=== PATIENT | female | born 1935 | race Two or more races ===

== ENCOUNTER 2023-08-15 12:52 | Inpatient (IN) | payer OTHER, SELFPAY ==
[2023-08-12 14:47] VITALS: BMI 21.2
[2023-08-12 14:51] VITALS: BP 111/46
[2023-08-12 15:22] LABS: % Basophils 0.3 % (0-2); % Eosinophils 0.2 % (0-6); % Immature Granulocytes 0.2 % (0-0.5); % Lymphocytes 89.6 % (20.5-51.1); % Monocytes 0.9 % (1.7-9.3); % Neutrophils 8.8 % (42.2-75.2); Absolute Basophils 0.2 10^3/uL (0-0.2); Absolute Eosinophils 0.1 10^3/uL (0-0.7); Absolute Immature Granulocytes 0.1 10^3/uL (0-0.05); Absolute Lymphocytes 49.1 10^3/uL (1.2-3.4); Absolute Monocytes 0.5 10^3/uL (0.1-0.6); Absolute Neutrophils 4.8 10^3/uL (1.4-6.5); Hematocrit 33.2 % (37.0-47.0); Mean Corp Hgb Conc. 33.1 g/dL (33.0-37.0); Mean Corpuscular Hgb 32.3 pg (27.0-31.0); Mean Corpuscular Volume 97.4 fL (81.0-99.0); Mean Platelet Volume 10.1 fL (7.4-10.4); Nucleated Red Blood Cells % 0 %; Platelet Count 244 10^3/uL (130-400); Red Blood Cell Count 3.41 10^6/uL (4.20-5.40); Red Cell Dist. Width 14.1 % (11.5-14.5)
[2023-08-12 15:30] LABS: White Blood Cell Count 54.9 10^3/uL (4.8-10.8)
[2023-08-12 15:39] LABS: ALT (SGPT) 14 U/L (0-35); AST (SGOT) 20 U/L (14-36); Albumin 3.3 g/dl (3.5-5.0); Alkaline Phosphatase 66 U/L (38-126); Blood Urea Nitrogen 34 mg/dl (7-17); Calcium 8.6 mg/dl (8.4-10.2); Carbon Dioxide 25 mmol/L (22-30); Chloride 101 mmol/L (98-107); Glucose 128 mg/dl (70-99); Lipase 39 U/L (23-300); Potassium 3.8 mmol/L (3.5-5.1); Sodium 136 mmol/L (135-145); Total Bilirubin 0.4 mg/dl (0.2-1.3); eGFR 30.83
--- NOTE | 2023-08-12 17:53 | ED.GENMED ---
History of Present Illness
General
Chief Complaint: Abdominal Pain
Source: patient and family
Exam Limitations: none
Time Seen by Provider: 08/12/23 17:42
Nursing documentation reviewed up to this point in time: agreed with
Travel History
Have you had any contact with someone who has COVID-19?: No
Do you have any symptoms of coronavirus? Fever > 100 degrees, chills, cough, shortness of breath, sore throat, loss of taste or smell, muscle aches, or headache?: No
History of Present Illness
History of Present Illness:
88-year-old female presents to the emergency department with left lower quadrant abdominal pain ongoing for 2 weeks to 1 month. No nausea vomiting or diarrhea noted. Patient states she has not been able to eat due to the pain. Last bowel movement
08/11/2023.
Past History
Past History
ED Past Medical History: GERD, HTN, Hypercholesterolemia, NIDDM and Other (Chronic lymphocytic leukemia DVT. )
Social History
Tobacco: Non-smoker
Alcohol: None
Drug: None
Living: [facility]
Employment: Retired
Review of Systems
Review of Systems
Allergies reviewed?: Yes
All Other Systems: Not applicable
Constitutional: Reports no symptoms
EENT: Reports no symptoms
Respiratory: Reports no symptoms
Cardiac: Reports no symptoms
ABD/GI: Reports abdominal pain
: Reports no symptoms
Musculoskeletal: Reports no symptoms
Skin: Reports no symptoms
Neurological: Reports no symptoms
Endocrine: Reports no symptoms
Hematologic/Lymphatic: Reports no symptoms
Psychiatric: Reports no symptoms
Phy Exam
Physical Exam
Physical Exam:
Physical Exam
General: Afebrile
Neck: supple. no meningeal signs. normal posterior pharynx
Heart: s1/s2 regular rate and rhythm, no murmur. equal radial
pulses.
HEENT: Pupils equal round reactive to light, EOMI hard of hearing
Lungs: no acute respiratory distress. clear bilaterally
Abdomen: normal bowel sounds. Left lower quadrant abdominal tenderness
Neuro: alert and oriented. no focal neurological deficits cranial nerves II through XII intact
Skin: no rash
Psychiatric: well kept. interactive and cooperative
Extremities: no edema. no calf tenderness. negative homans. good distal pulses
Course
Orders/Labs/Results
Orders:
Orders
08/12/23 15:08
Complete Blood Count/With Diff Urgent
Comprehensive Metabolic Panel Urgent
Lipase Urgent
08/12/23 17:50
Straight cath- Treatment ONCE
0.9% Sodium Chloride 500 ml [Nss] 500 ml IV BOLUS
08/12/23 17:54
CT Abd/pel Without Iv Or Oral Urgent
Comment:
Reason For Exam: left flank pain, LLQ tenderness
08/12/23 18:00
Lactic Acid Q4H
Comment: CANCEL 2nd LACTIC ACID IF 1st LACTIC ACID IS LESS THAN 2
Blood Culture Q30M
JOEL Source: Blood/Venous
Specimen Description:
08/12/23 18:30
Blood Culture Q30M
JOEL Source: Blood/Venous
Specimen Description:
08/12/23 19:11
Urinalysis Reflex To Culture Urgent
Date Specimen was Collected: 08/12/23
Time Specimen was Collected: 14:59
Urine Microscopic Reflex Cult Urgent
Urine Culture Urgent
JOEL Source: U
Specimen Description:
Date Specimen was Collected: 08/12/23
Time Specimen was Collected: 14:59
08/12/23 19:29
Ropinirole [Requip] 4 mg PO NOW STA
08/12/23 19:38
Cefepime HCl [Maxipime] 2,000 mg IV NOW STA
08/12/23 22:00
Lactic Acid Q4H
Comment: CANCEL 2nd LACTIC ACID IF 1st LACTIC ACID IS LESS THAN 2
Abnormal Lab Results
08/12/23 08/12/23
15:08 19:11
WBC 54.9 H* 10^3/uL
(4.8-10.8)
RBC 3.41 L 10^6/uL
(4.20-5.40)
Hgb 11.0 L g/dL
(12.0-16.0)
Hct 33.2 L %
(37.0-47.0)
MCH 32.3 H pg
(27.0-31.0)
Abs Immat Gran (auto) 0.1 H 10^3/uL
(0-0.05)
Absolute Lymphs (auto) 49.1 H 10^3/uL
(1.2-3.4)
Neutrophils % 8.8 L %
(42.2-75.2)
Lymphocytes % 89.6 H %
(20.5-51.1)
Monocytes % 0.9 L %
(1.7-9.3)
BUN 34 H mg/dl
(7-17)
Creatinine 1.6 H mg/dL
(0.6-1.0)
Glucose 128 H mg/dl
(70-99)
Total Protein 6.0 L g/dl
(6.3-8.2)
Albumin 3.3 L g/dl
(3.5-5.0)
Ur Occult Blood Reflex 1+ A
(Negative)
Urine Nitrite (Reflex) Positive A
(Negative)
Leukocyte Esterase Rfl 2+ A
(Negative)
Urine RBC 3-6 A /HPF
(0-2)
Urine WBC (Reflex) >100 A /HPF
(0-5)
Urine Bacteria (Reflex) Many A
(Negative)
08/12/23 15:08
08/12/23 15:08
Vital Signs
Initial and Last Documented VS:
Initial Vital Signs
Temp Pulse Resp BP Pulse Ox
98.0 F 63 18 111/46 99
08/12/23 14:51 08/12/23 14:51 08/12/23 14:51 08/12/23 14:51 08/12/23 14:51
Last Documented Vital Signs
Temp Pulse Resp BP Pulse Ox
98.0 F 63 18 111/46 99
08/12/23 14:51 08/12/23 14:51 08/12/23 14:51 08/12/23 14:51 08/12/23 14:51
MDM/Problems Addressed
Differential Diagnosis Includes:
Sepsis, kidney stone, diverticulitis
MDM/Problems Addressed:
88-year-old female with acute renal failure, UTI, CLL. Admit to hospitalist.
Chronic conditions affecting care: Cancer (CLL) and Other (Iron deficiency anemia)
*Radiology
Radiology exam reviewed: radiology read reviewed (CT noncontrast abdomen pelvis no acute findings)
*Pulse Oximetry
Patient hypoxic: no
*EKG
Interpreted by ED Provider?: NA
*Vending Machine Operator Interpretation
Rate: Vending Machine Operator- N/A
*Critical Care Note
Total Time (30-74mins, 75-104mins- exclusive of procedures): Not Applicable
Data Reviewed
Review of Other/Old Records Reveals: Labs (Prior white blood count 27.1 on outpatient labs from 01/21/2023)
Source: records
Patient Management
Social determinants of health affecting care: Living situation
Discussion with other providers: Hospitalist
Escalation/DeEscalation of care consider admission/obs:
Admit indicated
ED Attending Note
-
Portions of this chart may have been created with voice recognition software.� Occasional wrong word or��sound alike� substitutions may have occurred due to the inherent limitations of voice recognition software.
Discharge Plan
Departure
Patient Disposition: Admit
Date of Disposition: 08/12/23
Time of Disposition: 19:40
Admit to: Med/Surg
Presentation/result/management discussed w/ accepting MD/DO: Hospitalist
Patient with high blood pressure during this ER visit?: No
Condition: Good
Discharge Problem:
Acute UTI, Acute renal failure, Chronic lymphocytic leukemia
Referrals:
Lico Andrews DO [Family Provider] -
Interventions
Interventions:
*Risk Screen - Suicide Last Done: 08/12/23 14:57
*General Assessment Last Done: 08/12/23 14:57
*Neglect/Abuse Screening Last Done: 08/12/23 14:57
ED- Fall Risk Assessment Last Done: 08/12/23 16:59
Discharge Date and Time
Print Language: MALAYSIAN
[2023-08-12] MEDS: NSS 500 IV (18:41)
[2023-08-12 19:21] LABS: Urine Albumin Trace (Neg - Trace); Urine Bilirubin Negative (Negative); Urine Character Clear (Clear); Urine Color Yellow; Urine Glucose Negative (Negative); Urine Ketone Negative (Negative); Urine Leukocyte 2+ (Negative); Urine Nitrite Positive (Negative); Urine Occult Blood 1+ (Negative); Urine Urobilinogen Negative (Neg - 1+)
[2023-08-12 19:27] LABS: Urine Squamous Cell 0-2 /LPF (Few)
[2023-08-12 19:28] LABS: Urine Bacteria Many (Negative); Urine White Cell >100 /HPF (0-5)
[2023-08-12] MEDS: REQUIP 4 MG PO (19:45)
[2023-08-12] MEDS: MAXIPIME 2000 MG IV (19:52)
--- NOTE | 2023-08-12 20:13 | HPS.HSE ---
Family Physician
-
Family Physician: Lico Andrews DO
Chief Complaint
-
abdominal pain
History of Present Illness
88-year-old female past medical history of CLL not on treatment, GERD, atrial fibrillation unspecified type hypertension, hypercholesteremia, diabetes, hypothyroidism, restless legs, prior DVT, hearing loss, lower extreme edema, presenting with left
lower quadrant abdominal pain ongoing for the past 2 weeks to 1 month. Patient does have nausea with this pain and sometimes vomiting after eating. She also complains of some difficulty swallowing not specific to solids or liquids. She had a
speech and swallow evaluation which was normal. No choking or coughing episodes after swallowing. She was treated with medication to treat GERD which did not result in improvement of the pain. Patient has had normal bowel movements no blood in
the stool or black stool. She has lost 6 to 10 pounds in the past month due to eating less. Patient's family has made appointment with GI physician however no appointment for 2 months.
Patient is chronically incontinent and is not having increased urinary frequency urgency or burning. No fevers or chills.
Patient does not smoke or drink alcohol.
Medical History
Past Medical History
Past Medical History: Reports Other (CLL not on treatment, GERD, atrial fibrillation unspecified type hypertension, hypercholesteremia, diabetes, hypothyroidism, restless legs, prior DVT, hearing loss, lower extreme edema)
Past Surgical History: Reports None
Social History
Tobacco: Non-smoker
Alcohol: None
Drug: None
Family History
Family History: Not pertinent
Allergies / Home Medications
Allergies reflects when Allergies were last updated in [employer].
Home Medications with original date entered in [employer]
Allergy/Medication List:
Allergies
Allergy/AdvReac Type Severity Reaction Status Date / Time
No Known Allergies Allergy Unverified 08/12/23 14:50
Home Medications
acetaminophen 325 mg tablet 650 mg PO Q4H PRN mild pain/fever>100.4 08/12/23
alendronate 70 mg tablet 70 mg PO WE 08/12/23
apixaban 2.5 mg tablet (Eliquis) 2.5 mg PO BID@0830,182908/12/23
atorvastatin 40 mg tablet 40 mg PO QPM 08/12/23
bisacodyl 10 mg rectal suppository (Dulcolax (bisacodyl)) 10 mg NV DAILY PRN if mom is ineffective 08/12/23
calcium carbonate 500 mg PO Q8H PRN indigestion 08/12/23
citalopram 10 mg tablet 10 mg PO DAILY 08/12/23
diltiazem HCl 240 mg capsule,24 hr,extended release 240 mg PO DAILY 08/12/23
fentanyl 25 mcg/hr transdermal patch 1 patch transdermal Q72H 08/12/23
ferrous sulfate 325 mg (65 mg iron) tablet 325 mg PO DAILY 08/12/23
furosemide 20 mg tablet 40 mg PO DAILY 08/12/23
levothyroxine 50 mcg tablet 50 mcg PO DAILY@0630 08/12/23
magnesium hydroxide 400 mg/5 mL oral suspension (Milk of Magnesia) 30 ml PO HS PRN constipation 08/12/23
metformin 500 mg tablet 500 mg PO BID@0830,182908/12/23
metoprolol succinate 25 mg tablet,extended release 24 hr 75 mg PO DAILY 08/12/23
naloxone 4 mg/actuation nasal spray (Narcan) 4 mg intranasal PRN PRN opioid overdose 08/12/23
oxycodone 10 mg tablet 10 mg PO BID@0830,182908/12/23
pantoprazole 40 mg tablet,delayed release 40 mg PO DAILY 08/12/23
ropinirole 4 mg tablet 4 mg PO QPM 08/12/23
sennosides 8.6 mg-docusate sodium 50 mg tablet (Senna-S) 2 tab-cap PO DAILY 08/12/23
Review of Systems
-
History Source: Patient
A 12 point ROS was completed and negative except as noted: Yes
Constitutional: Reports No Symptoms
EENT: Reports No Symptoms
Respiratory: Reports No Symptoms
Cardiac: Reports No Symptoms
Abdomen/GI: Reports See HPI
: Reports No Symptoms
Musculoskeletal: Reports No Symptoms
Skin: Reports No Symptoms
Neurological: Reports No Symptoms
Endocrine: Reports No Symptoms
Hematologic/Lymphatic: Reports No Symptoms
Psych: Reports No Symptoms
Physical Exam
Vital Signs
Vital Signs
Temp Pulse Resp BP Pulse Ox
98.0 F 63 18 111/46 99
08/12/23 14:51 08/12/23 14:51 08/12/23 14:51 08/12/23 14:51 08/12/23 14:51
Physical Exam
General: Well Developed, Well Nourished and No Apparent Distress
HEENT: NormoCephalic, Moist mucous membranes and Atraumatic
Respiratory: Clear
Cardiac: S1/S2 and Regular Rhythm; No Murmur or Rub
GI: Soft, Non Distended, Normal Bowel Sounds and Tender (LLQ, epigastric region ); No Organomegaly
Rectal: Deferred by Provider
Musculoskeletal: No Clubbing, No Cyanosis and No Edema
Skin: No Rash
Neuro: Nonfocal/grossly intact
Laboratory Results
-
08/12/23 15:08
08/12/23 15:08
Laboratory Results
Total Bilirubin 0.4 mg/dl (0.2-1.3) 08/12/23 15:08
AST 20 U/L (14-36) 08/12/23 15:08
ALT 14 U/L (0-35) 08/12/23 15:08
Alkaline Phosphatase 66 U/L (38-126) 08/12/23 15:08
Lipase 39 U/L (23-300) 08/12/23 15:08
Data Reviewed
-
Lab Data: Labs Reviewed by me
Old Records: Reviewed
Impression/Plan
-
IMPRESSION:
PLAN:
# Subacute abdominal pain unclear etiology
# Dysphagia
-Patient tender to palpation in the left lower quadrant, epigastric region
-Lipase unremarkable
-CT abdomen pelvis shows no significant acute abnormality. There is diverticulosis without diverticulitis. 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
-Unclear etiology could be related to esophagitis, other causes include abdominal lymphadenopathy from CLL, underlying malignancy etc
-Patient had outpatient swallow evaluation which was normal
-Continue PPI
-GI consulted
-Hold Eliquis until GI evaluation
-Continue oxycodone, fentanyl patch
# Urinary tract infection
-Urinalysis very positive for infection
-Urine culture
-Blood cultures
-IV fluids
-Ceftriaxone
# Acute kidney injury prerenal
-Creatinine 1.6
-IV fluids
-Hold Lasix
# History of smoldering CLL
-Not on treatment and being observed
-White cell count normally 27, currently 54 due to UTI
Opiate induced constipation
-Continue bowel regimen
Chronic urinary incontinence
Hypertension
Chronic lower extremity edema
-Hold Lasix
Atrial fibrillation unspecified type
-Continue diltiazem, metoprolol
-Hold Eliquis
Hypercholesterolemia
-Continue statin
Type 2 diabetes
-Hold metformin
History of prior DVT
Chronic anemia
-Hemoglobin stable
-Continue iron supplement
Osteoporosis
-Continue alendronate
Hearing loss
Restless leg syndrome
-Continue ropinirole
Anxiety/depression
-Continue citalopram
Hypothyroidism
-Continue levothyroxine
DNR/DNI
DVT prophylaxis�heparin
Regular diet
[2023-08-12 20:26] LABS: Lactic Acid 2.3 mmol/L (0.7-2.0)
[2023-08-12 21:20] VITALS: BP 136/55; BMI 19.6
[2023-08-12] MEDS: NSS 1000 IV (22:04)
[2023-08-12] MEDS: DURAGESIC 25 MCG/HR PATCH 1 PATCH TRANSDERM (22:10)
[2023-08-12 22:11] LABS: Lactic Acid 1.7 mmol/L (0.7-2.0)
[2023-08-12 23:00] VITALS: BP 114/50
[2023-08-13] MEDS: STERILE WATER FOR INJECTION 10 ML IV (02:57)
[2023-08-13] MEDS: ROCEPHIN 1000 MG IV (02:57)
[2023-08-13] MEDS: SYNTHROID 50 MCG PO (06:22)
[2023-08-13 06:56] LABS: % Basophils 0.2 % (0-2); % Eosinophils 0.3 % (0-6); % Immature Granulocytes 0.2 % (0-0.5); % Lymphocytes 88.3 % (20.5-51.1); % Monocytes 1.2 % (1.7-9.3); % Neutrophils 9.8 % (42.2-75.2); Absolute Basophils 0.1 10^3/uL (0-0.2); Absolute Eosinophils 0.1 10^3/uL (0-0.7); Absolute Immature Granulocytes 0.1 10^3/uL (0-0.05); Absolute Monocytes 0.5 10^3/uL (0.1-0.6); Absolute Neutrophils 3.9 10^3/uL (1.4-6.5); Hematocrit 30.9 % (37.0-47.0); Mean Corp Hgb Conc. 32.4 g/dL (33.0-37.0); Mean Corpuscular Hgb 32.3 pg (27.0-31.0); Mean Corpuscular Volume 99.7 fL (81.0-99.0); Mean Platelet Volume 10.3 fL (7.4-10.4); Nucleated Red Blood Cells % 0.1 %; Platelet Count 171 10^3/uL (130-400); Red Cell Dist. Width 13.9 % (11.5-14.5); White Blood Cell Count 39.6 10^3/uL (4.8-10.8)
[2023-08-13 07:00] VITALS: BP 144/64
[2023-08-13 07:17] LABS: ALT (SGPT) 11 U/L (0-35); AST (SGOT) 20 U/L (14-36); Albumin 2.8 g/dl (3.5-5.0); Alkaline Phosphatase 58 U/L (38-126); Blood Urea Nitrogen 32 mg/dl (7-17); Calcium 8.1 mg/dl (8.4-10.2); Carbon Dioxide 27 mmol/L (22-30); Chloride 104 mmol/L (98-107); Estimated Creatinine Clearance 23 ml/min; Glucose 95 mg/dl (70-99); Potassium 3.6 mmol/L (3.5-5.1); Sodium 139 mmol/L (135-145); Total Bilirubin 0.4 mg/dl (0.2-1.3); Total Protein 5.3 g/dl (6.3-8.2); eGFR 36.19
--- NOTE | 2023-08-13 07:34 | PTCARENOTE ---
Patient arrived on unit @2114 via stretcher from ED, pullover with assist x3. Patient AAOX3, HUGHES, uses tablet to communicate. Skin assessment completed, oriented to unit, call dale with reach.
[2023-08-13] MEDS: HEPARIN 5000 UNITS SC ×2 (08:09→20:58)
[2023-08-13] MEDS: PROTONIX 40 MG PO (08:11)
[2023-08-13] MEDS: CELEXA 10 MG PO (08:11)
[2023-08-13] MEDS: CARDIZEM CD 240 MG PO (08:11)
[2023-08-13] MEDS: FEOSOL 325 MG PO (08:11)
[2023-08-13] MEDS: TOPROL XL 75 MG PO (08:11)
[2023-08-13] MEDS: SENOKOT-S 2 TABLET PO (08:12)
[2023-08-13] MEDS: ROXICODONE 10 MG PO ×2 (08:12→17:37)
--- NOTE | 2023-08-13 10:42 | W.PN.HOSP.TC ---
Today's Communication/Plan
-
TSH
Hemoglobin A1c
Low resistance insulin scale
Bladder scan
GI consult
Continue IV fluids
Assessment / Plan
Assessment / Plan
Gen-AAOx3, NAD
HEENT-NC, AT, anicteric, clear oral mm
Neck-supple
CV-reg, no M, +S1/S2
Lungs-clear B/L
Abd-soft, distended, mildly tender
Ext-no edema
Musculoskeletal-no cyanosis, clubbing
Skin-warm and dry
Neuro-grossly non-focal
Psych-calm, cooperative
Abdominal pain -for at least the past month. Associated with worsening while eating, 15 pound weight loss over the past 5 months. Differential diagnosis includes chronic mesenteric ischemia. CT abdomen/pelvis did not reveal any acute pathology
but findings are limited without oral/IV contrast.
Will discuss with GI today.
Dysphagia -unclear etiology. Await GI input.
Acute kidney injury -likely due to decreased oral intake with volume depletion. Renal function improving with IV fluids. Furosemide on hold. Check bladder scan.
Asymptomatic pyuria -on antibiotics empirically for possible UTI. Culture pending.
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 Most of her leukocytosis is likely related to this.
Chronic pain syndrome/chronic opiate dependence
Opiate induced constipation -had a small BM this morning. Continue bowel regimen.
Essential hypertension -stable.
Chronic urinary incontinence
Atrial fibrillation -unknown type. Eliquis on hold for now.
Hyperlipidemia -atorvastatin.
Osteoporosis
DM2 without hyperglycemia - metformin on hold. Glucose 95 this morning. Check hemoglobin A1c.
RLS
Hypothyroidism -levothyroxine. Check TSH.
Anxiety/depression
Chronic hearing loss
DNR
Anticipated Discharge: 24 - 48 hours
Subjective/Interval History
-
Date of Service: August 13, 2023
Patient seen and examined. Complaining of abdominal discomfort with eating.
Objective Data
-
Labs:
Laboratory Results
08/13/23
06:42
WBC 39.6 H
Hgb 10.0 L
Hct 30.9 L
Plt Count 171 D
Sodium 139
Potassium 3.6
Chloride 104
Carbon Dioxide 27
BUN 32 H
Creatinine 1.4 H
Glucose 95
Calcium 8.1 L
Total Bilirubin 0.4
AST 20
ALT 11
Alkaline Phosphatase 58
Vital Signs:
Vital Signs
Temp Pulse Resp BP Pulse Ox
97.6 F 75 16 144/64 98
08/13/23 07:00 08/13/23 08:11 08/13/23 07:00 08/13/23 08:11 08/13/23 07:00
I&O
08/12/23 08/13/23 08/14/23
06:59 06:59 06:59
Intake Total 480 / 480
Output Total 450 / 450
Balance 30 / 30
Review of Systems
-
History Source: Patient
All other systems: Reviewed and negative
[2023-08-13] MEDS: 0.45%NACL 1000 IV (11:22)
[2023-08-13] MEDS: NSS IV (11:25)
[2023-08-13] MEDS: NOVOLOG FLEXPEN-LOW RESISTANCE SC ×2 (12:09→17:07)
[2023-08-13 12:13] LABS: TSH 2.65 uIU/ml (0.47-4.68)
--- NOTE | 2023-08-13 12:20 | CON.GI ---
Addendum entered and electronically signed by Lesa Morales DO 08/13/23 15:07:
I saw and examined the patient.
The PICTURE FRAME MAKER or PA's note was reviewed and I agree with the note.
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
presents with left upper and left lower quadrant abdominal pain for the last few weeks with associated weight loss. She adamantly denies any dysphagia, odynophagia or globus sensation. She does admit to constipation, moving her bowels every 2 to 3
days, which is a change for her and she attributes to her anorexia over the last few weeks. She also admits to regurgitation and bilious emesis soon after eating. She has not had an appetite, endorses dyspepsia. She denies any melena or
hematochezia. Denies any diarrhea, states when she does have a bowel movement it is formed and her abdominal discomfort is improved after moving her bowels however this does not improve her appetite or desire to eat. Reportedly had a colonoscopy
about 10 years ago. Family history of father with colon cancer.
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 Simple hepatic cysts. Gallbladder present, no evidence of cholelithiasis, GB wall
thickening or cholecystic fluid. However, no PO or IV contrast was used, patient with mild MIKKI, Cr. 1.6 --> 1.4 (previously 0.9 in February 2023).She is on chronic opioids.
Unclear etiology of pain, large differential given her known history of CLL as well as findings of CBD dilatation with intact gallbladder, however, pain is concentrated on left-side. Given post-prandial nature, this could certainly represent chronic
mesenteric ischemia. Another possibility is gastroparesis, she is on chronic opioids, however, given the acuity, less likely.
Recommendations:
-eliquis on hold, needs wash out
-PPI
-MRI/MRCP--if negative, will consider inpatient EGD/Colonoscopy, patient is agreeable
-continue daily sennaginettet, MoM enema prn, add daily miralax and uptitrate
Original Note:
Consultation
-
Date/Time Consultation Requested: 08/12/23 6546
Date/Time Consultation Performed: 08/13/23 1145
Requesting Provider: Dr. Landa
Performing Provider: Dr. Lopez/ROBIN Carvalho
Reason for Consultation: abdominal pain, weight loss, vomiting
Medical History
Chief Complaint / HPI
Chief Complaint: abd pain, weight loss, vomiting
History of Present Illness:
88-year-old female with past medical history of CLL greater than 10 years currently not on treatment followed by Dr. Fernandez in the past with baseline white count around 20,000, GERD, atrial fibrillation, hypertension, hyperlipidemia, diabetes,
hypothyroidism, RLS, prior DVT, hearing loss with need of iPad for communication, lower extremity edema, osteoporosis, chronic pain syndrome chronic urinary incontinence and anemia who presents to the emergency room from [facility] with left
upper quadrant abdominal discomfort, weight loss of 10 pounds over the past month, vomiting after eating and dyspepsia. We are asked to evaluate for the same. I spoke to both the patient (with the aid of her iPad) and with her son via telephone
about her past medical history as her son states that she could be forgetful at times. The patient and son both say that for the past month that she has had issues with left upper quadrant discomfort for the past 3 to 4 weeks. This usually occurs
after eating. The patient states that she can take a couple bites and always ask for a bucket with eating as she promptly regurgitates or vomits shortly thereafter. The patient states that it is usually bilious vomit. She states that the left
upper quadrant discomfort can be both sharp and dull. It is intermittent. Pain medications make it better. Food makes it worse. She has a documented 10 pound weight loss. She does state that she has darker stools and that people told her that
they are hard and pellet-like. From medical records it appears that she is on iron however she was unaware of that. Other medications that are contributing to constipation include diltiazem, fentanyl patch and oxycodone. The patient denies any
fevers, chills, hematochezia, true dysphagia or odynophagia. Her son states that she had a speech and swallow evaluation while at [facility] and passed this. There were no signs of aspiration from what he recalls. He states that she had a
colonoscopy which he thinks was approximately 10 years ago as his father had a history of colon cancer and him and his mother would go for screenings. The patient herself does not recall this. He does not believe she is ever had an upper endoscopy
before. The patient does not ever having that either.
Past Medical History
Past Medical History: Arrhythmias (Atrial fibrillation), Cancer (CLL greater than 10 years), GERD, HTN, Hypercholesterolemia, Hypothyroidism, NIDDM and Other (RLS, prior DVT, hearing loss, bilateral lower extremity edema, osteoporosis, chronic pain
syndrome, chronic urinary incontinence)
Past Surgical History: Orthopedic (Right hip replacement, right knee patellar repair) and Other (Cataracts)
Social History
Tobacco: Non-Smoker
Alcohol: None
Drug: None
Personal:
Living: [facility]
Family History
Family History: Other (No family history of gastrointestinal malignancy or IBD)
Allergies / Home Medications
Allergy/AdvReac Type Severity Reaction Status Date / Time
No Known Allergies Allergy Unverified 08/12/23 14:50
�Medication �Instructions �Recorded
acetaminophen 325 mg tablet 650 mg PO Q4H PRN mild 08/12/23
pain/fever>100.4
alendronate 70 mg tablet 70 mg PO WE osteoporosis 08/12/23
apixaban 2.5 mg tablet (Eliquis) 2.5 mg PO BID@0830,1830 Blood Clot 08/12/23
Prevention/Tx
atorvastatin 40 mg tablet 40 mg PO QPM High Cholesterol 08/12/23
bisacodyl 10 mg rectal suppository 10 mg OK DAILY PRN if mom is 08/12/23
(Dulcolax (bisacodyl)) ineffective
calcium carbonate 500 mg PO Q8H PRN indigestion 08/12/23
citalopram 10 mg tablet 10 mg PO DAILY Depression 08/12/23
diltiazem HCl 240 mg capsule,24 240 mg PO DAILY Blood Pressure 08/12/23
hr,extended release
fentanyl 25 mcg/hr transdermal 1 patch transdermal Q72H chronic 08/12/23
patch pain
ferrous sulfate 325 mg (65 mg 325 mg PO DAILY Supplement 08/12/23
iron) tablet
furosemide 20 mg tablet 40 mg PO DAILY Fluid 08/12/23
Retention/Swelling
levothyroxine 50 mcg tablet 50 mcg PO DAILY@0630 Thyroid 08/12/23
magnesium hydroxide 400 mg/5 mL 30 ml PO HS PRN constipation 08/12/23
oral suspension (Milk of TrueLens)
metformin 500 mg tablet 500 mg PO BID@0830,1830 Diabetes 08/12/23
metoprolol succinate 25 mg 75 mg PO DAILY Blood Pressure 08/12/23
tablet,extended release 24 hr
naloxone 4 mg/actuation nasal 4 mg intranasal PRN PRN opioid 08/12/23
spray (Narcan) overdose
oxycodone 10 mg tablet 10 mg PO BID@0830,1830 Pain 08/12/23
pantoprazole 40 mg tablet,delayed 40 mg PO DAILY Gastrointestinal 08/12/23
release Issue
ropinirole 4 mg tablet 4 mg PO QPM restless legs 08/12/23
sennosides 8.6 mg-docusate sodium 2 tab-cap PO DAILY Constipation 08/12/23
50 mg tablet (Senna-S)
Review of Systems
-
All other systems: A 12 pt ROS was Negative except as stated above in HPI
Vital Signs
Temp Pulse Resp BP Pulse Ox
97.6 F 75 16 144/64 98
08/13/23 07:00 08/13/23 08:11 08/13/23 07:00 08/13/23 08:11 08/13/23 07:00
Physical Exam
Exam
General: No Apparent Distress
HEENT: Anicteric
Respiratory: Clear
Cardiac: Regular Rhythm
GI: Soft, Non Distended, Normal Bowel Sounds and Tender (Left upper quadrant tenderness)
Musculoskeletal: Edema (Bilateral lower extremity edema left greater than right)
Skin: Warm and Dry
Neuro: AO x 3
Psych: Calm
Results
WBC 39.6 10^3/uL (4.8-10.8) H 08/13/23 06:42
Hgb 10.0 g/dL (12.0-16.0) L 08/13/23 06:42
Hct 30.9 % (37.0-47.0) L 08/13/23 06:42
MCV 99.7 fL (81.0-99.0) H 08/13/23 06:42
Plt Count 171 10^3/uL (130-400) D 08/13/23 06:42
Absolute Neuts (auto) 3.9 10^3/uL (1.4-6.5) 08/13/23 06:42
Sodium 139 mmol/L (135-145) 08/13/23 06:42
Potassium 3.6 mmol/L (3.5-5.1) 08/13/23 06:42
Chloride 104 mmol/L (98-107) 08/13/23 06:42
Carbon Dioxide 27 mmol/L (22-30) 08/13/23 06:42
BUN 32 mg/dl (7-17) H 08/13/23 06:42
Creatinine 1.4 mg/dL (0.6-1.0) H 08/13/23 06:42
Calcium 8.1 mg/dl (8.4-10.2) L 08/13/23 06:42
Total Bilirubin 0.4 mg/dl (0.2-1.3) 08/13/23 06:42
AST 20 U/L (14-36) 08/13/23 06:42
ALT 11 U/L (0-35) 08/13/23 06:42
Alkaline Phosphatase 58 U/L (38-126) 08/13/23 06:42
Lipase 39 U/L (23-300) 08/12/23 15:08
Diagnostic Image Results:
CT of the abdomen and pelvis without contrast:
1. No significant acute abnormality identified in the abdomen or pelvis, within the limits of unenhanced CT, as described above. Diverticulosis coli without evidence for diverticulitis.
2. 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 Consider outpatient workup with dedicated MRI/MRCP abdomen without and with gadolinium contrast.
Electronically signed by Tom Schaefer , 08/12/2023 7:21 PM
Prior GI Procedures:
EGD: Never had
Colonoscopy: Does not recall when. Per son approximately 10 years ago. Does not recall where or results
Assessment / Plan
-
88-year-old female with past medical history of CLL greater than 10 years currently not on treatment followed by Dr. Fernandez in the past with baseline white count around 20,000, GERD, atrial fibrillation, hypertension, hyperlipidemia, diabetes,
hypothyroidism, RLS, prior DVT, hearing loss with need of iPad for communication, lower extremity edema, osteoporosis, chronic pain syndrome chronic urinary incontinence and anemia who presents to the emergency room from [facility] with left
upper quadrant abdominal discomfort, weight loss of 10 pounds over the past month, vomiting after eating and dyspepsia. WBC 39.6 (down from 54.9�baseline around 20,000), hemoglobin 10.0, MCV 99.7, MCH 32.3, platelets 171, sodium 139, potassium 3.6,
chloride 104, CO2 27, BUN 34, creatinine 1.4, lactic acid 1.7, total bilirubin 0.4, AST 20, ALT 11, alk phos 58, albumin 2.8, TSH 2.65, UA positive, urine culture preliminary gram-negative bacilli. Patient was started on ceftriaxone for UTI.
Impression:
LUQ pain
weight loss
Vomiting
Anemia-> macrocytic
Constipation
GERD-> on Pantoprazole
UTI-> UC prelim GNB
MIKKI-> cannot have IV contrast at this time
CLL-> baseline WBC count 20,000 per son.
Afib on Eliquis, last dose prior to arrival
Chronic pain-> Fentanyl patch, oxycodone
Plan:
-Continue Pantoprazole 40 mg daily
-Check iron studies, B12, Folate
-Patient would be agreeable for EGD, would need Eliquis washout
-Bowel regimen, add Miralax
-Further recommendations to be forthcoming
-
-
Thank you for consultation and allowing me to participate in the patient's care. Please call the oncology rn GI physician during the after hours with any questions or concerns.
--- NOTE | 2023-08-13 14:03 | CM ---
Reviewed chart, met with patient to obtain information for assessment. 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 She stated that she is dependent for all ADLs, personal care, dressing and bathing. She uses a w/c. She denied
any other DME. She relayed that she has been at [facility] for 10 years and selects to return to her LTC when she is medically stable.
Placed a call to Harjeet in admissions at [facility] who confirmed bed hold.
She stated that she will f/u for updates.
Plan: Case management will continue to follow and assist with discharge planning. Back to [facility] when stable.
[2023-08-13 14:25] VITALS: BMI 19.6
[2023-08-13 15:00] VITALS: BP 127/55
[2023-08-13] MEDS: MIRALAX 17 GRAMS PO (15:13)
[2023-08-13 17:02] LABS: Glucose - Point of Care 128 mg/dl (70-99)
[2023-08-13] MEDS: REQUIP 4 MG PO (17:36)
[2023-08-13] MEDS: LIPITOR 40 MG PO (17:37)
[2023-08-13 23:00] VITALS: BP 147/118
[2023-08-14] MEDS: 0.45%NACL 1000 IV ×2 (00:31→13:12)
[2023-08-14] MEDS: STERILE WATER FOR INJECTION 10 ML IV (03:00)
[2023-08-14] MEDS: ROCEPHIN 1000 MG IV (03:00)
[2023-08-14] MEDS: SYNTHROID 50 MCG PO (06:34)
[2023-08-14 07:17] VITALS: BP 144/59
[2023-08-14] MEDS: MIRALAX PO ×2 (07:43→08:01)
[2023-08-14] MEDS: PROTONIX 40 MG PO (07:43)
[2023-08-14] MEDS: ROXICODONE 10 MG PO ×2 (07:43→17:54)
[2023-08-14] MEDS: CARDIZEM CD 240 MG PO (07:43)
[2023-08-14] MEDS: TOPROL XL 75 MG PO (07:43)
[2023-08-14] MEDS: FEOSOL 325 MG PO (07:43)
[2023-08-14] MEDS: SENOKOT-S 2 TABLET PO (07:44)
[2023-08-14] MEDS: HEPARIN 5000 UNITS SC ×2 (07:44→21:51)
[2023-08-14] MEDS: CELEXA 10 MG PO (07:44)
[2023-08-14 07:56] LABS: Glucose - Point of Care 93 mg/dl (70-99)
[2023-08-14] MEDS: NOVOLOG FLEXPEN-LOW RESISTANCE SC (08:01)
[2023-08-14 08:10] LABS: % Basophils 0.3 % (0-2); % Eosinophils 0.3 % (0-6); % Immature Granulocytes 0.2 % (0-0.5); % Neutrophils 8.2 % (42.2-75.2); Absolute Basophils 0.2 10^3/uL (0-0.2); Absolute Eosinophils 0.1 10^3/uL (0-0.7); Absolute Immature Granulocytes 0.1 10^3/uL (0-0.05); Absolute Monocytes 0.4 10^3/uL (0.1-0.6); Absolute Neutrophils 3.6 10^3/uL (1.4-6.5); Hematocrit 29.2 % (37.0-47.0); Hemoglobin 10.1 g/dL (12.0-16.0); Mean Corp Hgb Conc. 34.6 g/dL (33.0-37.0); Mean Corpuscular Hgb 32.6 pg (27.0-31.0); Mean Corpuscular Volume 94.2 fL (81.0-99.0); Mean Platelet Volume 10.2 fL (7.4-10.4); Nucleated Red Blood Cells % 0 %; Platelet Count 190 10^3/uL (130-400); Red Cell Dist. Width 13.9 % (11.5-14.5)
[2023-08-14 08:15] LABS: White Blood Cell Count 43.3 10^3/uL (4.8-10.8)
[2023-08-14 08:44] LABS: Blood Urea Nitrogen 23 mg/dl (7-17); Calcium 7.8 mg/dl (8.4-10.2); Carbon Dioxide 22 mmol/L (22-30); Chloride 103 mmol/L (98-107); Estimated Creatinine Clearance 29 ml/min; Glucose 102 mg/dl (70-99); Potassium 3.4 mmol/L (3.5-5.1); Sodium 135 mmol/L (135-145); eGFR 48.33
[2023-08-14 09:50] LABS: Glycohemoglobin (HgbA1c) 6.7 % (4.0-5.6)
--- NOTE | 2023-08-14 10:12 | W.PN.HOSP.TC ---
Addendum entered and electronically signed by Sanjiv Washburn DO 08/14/23 11:43:
I updated patient's son Adonay on the phone. All questions answered.
Original Note:
Today's Communication/Plan
-
Continue IV fluids
CTA tomorrow
Assessment / Plan
Assessment / Plan
Gen-AAOx3, NAD
HEENT-NC, AT, anicteric, clear oral mm
Neck-supple
CV-reg, no M, +S1/S2
Lungs-clear B/L
Abd-soft, distended, mildly tender
Ext-no edema
Musculoskeletal-no cyanosis, clubbing
Skin-warm and dry
Neuro-grossly non-focal
Psych-calm, cooperative
Abdominal pain -for at least the past month. Associated with worsening while eating, 15 pound weight loss over the past 5 months. Differential diagnosis includes chronic mesenteric ischemia. CT abdomen/pelvis did not reveal any acute pathology
but findings are limited without oral/IV contrast.
Will check CTA abdomen and pelvis tomorrow as anticipate renal function will continue to improve. Discussed with patient.
Dysphagia -patient now denies.
Acute kidney injury -likely due to decreased oral intake with volume depletion. Renal function improving with IV fluids. Furosemide on hold.
Asymptomatic pyuria -on antibiotics empirically for possible UTI. Urine culture shows greater than 100,000 Klebsiella species. Has received 2 doses of IV ceftriaxone so far.
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 Most of her leukocytosis is likely related to this.
Chronic pain syndrome/chronic opiate dependence
Opiate induced constipation -had a small BM this morning. Continue bowel regimen.
Essential hypertension -stable.
Chronic urinary incontinence
Atrial fibrillation -unknown type. Eliquis on hold for now.
Hyperlipidemia -atorvastatin.
Osteoporosis
DM2 without hyperglycemia - metformin on hold. Glucose 102 this morning. Hemoglobin A1c 6.7%.
RLS
Hypothyroidism -levothyroxine. TSH normal.
Anxiety/depression
Chronic hearing loss
DNR
Anticipated Discharge: > 48 hours
Subjective/Interval History
-
Date of Service: August 14, 2023
Patient seen and examined. No new complaints, still with postprandial pain. Denies trouble swallowing.
Objective Data
-
Labs:
Laboratory Results
08/14/23
07:51
WBC 43.3 H*
Hgb 10.1 L
Hct 29.2 L
Plt Count 190
Sodium 135
Potassium 3.4 L
Chloride 103
Carbon Dioxide 22
BUN 23 H
Creatinine 1.1 H
Glucose 102 H
Calcium 7.8 L
Vital Signs:
Vital Signs
Temp Pulse Resp BP Pulse Ox
97.8 F 68 16 144/59 99
08/14/23 07:17 08/14/23 07:17 08/14/23 07:17 08/14/23 07:17 08/14/23 07:17
I&O
08/13/23 08/14/23 08/15/23
06:59 06:59 06:59
Intake Total 480 / 480 480 / 480
Output Total 450 / 450 600 / 600 1000 / 1000
Balance 30 / 30 -120 / -120 -1000 / -1000
Review of Systems
-
History Source: Patient
All other systems: Reviewed and negative
[2023-08-14] MEDS: KCL 40 MEQ PO (10:20)
[2023-08-14 10:36] LABS: Magnesium 1.4 mg/dl (1.6-2.3)
[2023-08-14 12:47] LABS: Glucose - Point of Care 198 mg/dl (70-99)
[2023-08-14] MEDS: NOVOLOG FLEXPEN-LOW RESISTANCE 1 UNITS SC (13:03)
[2023-08-14] MEDS: MAGNESIUM SULFATE 50 IV (14:06)
[2023-08-14 14:20] VITALS: BP 109/41; PULSE 63; O2SAT 98
--- NOTE | 2023-08-14 15:27 | PTCARENOTE ---
pt with new onset SOB, sats on RA 80% HR 120's BP elevated. 2L O2 applied with sats in high 90's. Doctor Zheng made aware via TT. PRN hydralazine administered. Chest X, IV lasix and Procardia ordered. Will continue to monitor.
[2023-08-14 15:50] VITALS: BP 122/47
--- NOTE | 2023-08-14 16:33 | W.PN.GI.CBS2 ---
Today's Communication / Plan
-
- MRI/MRCP
- family aware
Assessment / Plan
-
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 Fernandez in the past with baseline white count around 20,000, GERD, atrial fibrillation on Eliquis, hypertension,
hyperlipidemia, diabetes, hypothyroidism, RLS, prior DVT, hearing loss with need of iPad for communication, lower extremity edema, osteoporosis, chronic pain syndrome chronic urinary incontinence and anemia [facility] left [facility] quadrant abdominal discomfort, weight loss of 10 pounds over the past month (she states 40 pounds over months), vomiting after eating and dyspepsia. WBC 39.6 (down from 54.9�baseline around 20,000), hemoglobin 10.0,
MCV 99.7, MCH 32.3, platelets 171, sodium 139, potassium 3.6, chloride 104, CO2 27, BUN 34, creatinine 1.4, lactic acid 1.7, total bilirubin 0.4, AST 20, ALT 11, alk phos 58, albumin 2.8, TSH 2.65, UA positive, urine culture preliminary
gram-negative bacilli. Patient was started on ceftriaxone for UTI.
Impression:
LUQ pain
weight loss
Vomiting
Anemia-> macrocytic
Constipation
GERD-> on Pantoprazole
UTI-> UC prelim GNB
MIKKI-> cannot have IV contrast at this time
CLL-> baseline WBC count 20,000 per son.
Afib on Eliquis, last dose prior to arrival
Chronic pain-> Fentanyl patch, oxycodone
Plan:
-Continue Pantoprazole 40 mg daily
-Check iron studies, B12, Folate
-Patient would be agreeable for EGD, would need Eliquis washout
-Bowel regimen, add Miralax
-Further recommendations to be forthcoming
08/14/23 -renal function improving
--CT angiography has sensitivity and specificity of 90% the diagnosis of chronic mesenteric ischemia due to atherosclerosis
--Other etiologies gastroparesis in the setting of narcotics versus malignancy vs PUD vs celiac vs other
--
-- Review of her CT scan is concerning for probable biliary cyst with dilation up to 3.4 cm in the common bile duct measuring up to 11 mm. Gallbladder is present.
Patient really needs an MRI/MRCP to classify the cyst. LFTs are normal.
--- Patient's LFTs are normal which is common in biliary cysts --there is an increased risk of malignancy, particularly cholangiocarcinoma but also pancreatic and gallbladder cancers. Cancer is more common in patients who are older with type I and
IV cysts.
-- vince proceed with MRI/MRCP in light of this information.
--- may need CTA to look at the vasculature to see if this could potentially be chronic mesenteric ischemia, but will start with MRI/MRCP since it likely has higher yield and we need to see the biliary tree well
-- discuss with Wu
Subjective
Subjective
Date of Service: August 14, 2023
Patient denies any significant constipation and generally moves her bowels every other day. No significant nausea or vomiting and usually her symptoms occur postprandial after dinner with some nausea and vomiting at that time. Appetite is
decreased. She has left upper quadrant discomfort denies any heartburn or regurgitation
Objective
Data Reviewed
Laboratory Data:
Laboratory Results
08/14/23 07:51
08/14/23 07:51
Laboratory Results
Magnesium 1.4 mg/dl (1.6-2.3) L 08/14/23 07:51
Total Bilirubin 0.4 mg/dl (0.2-1.3) 08/13/23 06:42
AST 20 U/L (14-36) 08/13/23 06:42
ALT 11 U/L (0-35) 08/13/23 06:42
Alkaline Phosphatase 58 U/L (38-126) 08/13/23 06:42
Lipase 39 U/L (23-300) 08/12/23 15:08
Vital Signs and I&O:
Vital Signs
Temp Pulse Resp BP Pulse Ox
97.8 F 68 16 144/59 99
08/14/23 07:17 08/14/23 07:17 08/14/23 07:17 08/14/23 07:17 08/14/23 07:17
I&O
08/13/23 08/14/23 08/15/23
06:59 06:59 06:59
Intake Total 480 / 480 480 / 480
Output Total 450 / 450 600 / 600 1000 / 1000
Balance 30 / 30 -120 / -120 -1000 / -1000
Physical Exam
Physical Exam
HEENT: Anicteric and Other (Hard of hearing)
GI: Soft and Tender (Tender in the left upper quadrant with deep palpation)
Extremities: No Edema
Neuro: Non Focal
[2023-08-14] MEDS: LIPITOR 40 MG PO (17:53)
[2023-08-14] MEDS: REQUIP 4 MG PO (17:55)
[2023-08-14] MEDS: NOVOLOG FLEXPEN-LOW RESISTANCE 2 UNITS SC (17:59)
[2023-08-14 18:00] LABS: Glucose - Point of Care 238 mg/dl (70-99)
[2023-08-14 21:43] LABS: Glucose - Point of Care 156 mg/dl (70-99)
[2023-08-14 23:00] VITALS: BP 146/63
[2023-08-15] MEDS: ROCEPHIN 1000 MG IV (01:57)
[2023-08-15] MEDS: STERILE WATER FOR INJECTION 10 ML IV (01:57)
[2023-08-15] MEDS: 0.45%NACL 1000 IV ×2 (01:58→15:47)
[2023-08-15] MEDS: SYNTHROID 50 MCG PO (06:16)
[2023-08-15 07:32] VITALS: BP 109/63
[2023-08-15] MEDS: PROTONIX 40 MG PO (08:07)
[2023-08-15] MEDS: FEOSOL 325 MG PO (08:07)
[2023-08-15] MEDS: SENOKOT-S 2 TABLET PO (08:07)
[2023-08-15] MEDS: CARDIZEM CD 240 MG PO (08:07)
[2023-08-15] MEDS: ROXICODONE 10 MG PO ×2 (08:07→17:53)
[2023-08-15] MEDS: TOPROL XL 75 MG PO (08:07)
--- NOTE | 2023-08-15 08:07 | W.PN.GI.CBS2 ---
Today's Communication / Plan
-
awaiting MRI/MRCP
Assessment / Plan
-
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 Fernandez in the past with baseline white count around 20,000, GERD, atrial fibrillation on Eliquis, hypertension,
hyperlipidemia, diabetes, hypothyroidism, RLS, prior DVT, hearing loss with need of iPad for communication, lower extremity edema, osteoporosis, chronic pain syndrome chronic urinary incontinence and anemia who presents to the emergency room from
[facility] with left upper quadrant abdominal discomfort, weight loss of 10 pounds over the past month (she states 40 pounds over months), vomiting after eating and dyspepsia. WBC 39.6 (down from 54.9�baseline around 20,000), hemoglobin 10.0,
MCV 99.7, MCH 32.3, platelets 171, sodium 139, potassium 3.6, chloride 104, CO2 27, BUN 34, creatinine 1.4, lactic acid 1.7, total bilirubin 0.4, AST 20, ALT 11, alk phos 58, albumin 2.8, TSH 2.65, UA positive, urine culture preliminary
gram-negative bacilli. Patient was started on ceftriaxone for UTI.
Impression:
LUQ pain
weight loss
Vomiting
Anemia-> macrocytic
Constipation
GERD-> on Pantoprazole
UTI-> UC prelim GNB
MIKKI-> cannot have IV contrast at this time
CLL-> baseline WBC count 20,000 per son.
Afib on Eliquis, last dose prior to arrival
Chronic pain-> Fentanyl patch, oxycodone
Plan:
-Continue Pantoprazole 40 mg daily
-Check iron studies, B12, Folate
-Patient would be agreeable for EGD, would need Eliquis washout
-Bowel regimen, add Miralax
-Further recommendations to be forthcoming
08/14/23 -renal function improving
--CT angiography has sensitivity and specificity of 90% the diagnosis of chronic mesenteric ischemia due to atherosclerosis
--Other etiologies gastroparesis in the setting of narcotics versus malignancy vs PUD vs celiac vs other
--
-- Review of her CT scan is concerning for probable biliary cyst with dilation up to 3.4 cm in the common bile duct measuring up to 11 mm. Gallbladder is present.
Patient really needs an MRI/MRCP to classify the cyst. LFTs are normal.
--- Patient's LFTs are normal which is common in biliary cysts --there is an increased risk of malignancy, particularly cholangiocarcinoma but also pancreatic and gallbladder cancers. Cancer is more common in patients who are older with type I and
IV cysts.
-- vince proceed with MRI/MRCP in light of this information.
--- may need CTA to look at the vasculature to see if this could potentially be chronic mesenteric ischemia, but will start with MRI/MRCP since it likely has higher yield and we need to see the biliary tree well
-- discussed with Wu
08/15/23 - awaiting morning BMP, iron studies, etc
-- MRI/MRCP today
-- continue ppi and bowel regimen
Subjective
Subjective
Date of Service: August 15, 2023
feeling anxious about the study. no overnight events
Objective
Data Reviewed
Laboratory Data:
Laboratory Results
08/14/23 07:51
Laboratory Results
Magnesium 1.4 mg/dl (1.6-2.3) L 08/14/23 07:51
Total Bilirubin 0.4 mg/dl (0.2-1.3) 08/13/23 06:42
AST 20 U/L (14-36) 08/13/23 06:42
ALT 11 U/L (0-35) 08/13/23 06:42
Alkaline Phosphatase 58 U/L (38-126) 08/13/23 06:42
Lipase 39 U/L (23-300) 08/12/23 15:08
Vital Signs and I&O:
Vital Signs
Temp Pulse Resp BP Pulse Ox
97.8 F 72 18 146/63 98
08/14/23 23:00 08/14/23 23:00 08/14/23 23:00 08/14/23 23:00 08/14/23 23:00
I&O
08/14/23 08/15/23 08/16/23
06:59 06:59 06:59
Intake Total 480 / 480 0 / 2040
Output Total 600 / 600 2290 / 2290
Balance -120 / -120 -250 / -250
Physical Exam
Physical Exam
HEENT: Anicteric
GI: Soft and Tender (mildly tender LUQ)
Extremities: No Edema
Neuro: Non Focal
[2023-08-15] MEDS: CELEXA 10 MG PO (08:08)
[2023-08-15] MEDS: MIRALAX 17 GRAMS PO (08:08)
[2023-08-15] MEDS: HEPARIN 5000 UNITS SC ×2 (08:08→19:34)
[2023-08-15 08:29] LABS: Blood Urea Nitrogen 17 mg/dl (7-17); Calcium 8.2 mg/dl (8.4-10.2); Carbon Dioxide 22 mmol/L (22-30); Chloride 108 mmol/L (98-107); Estimated Creatinine Clearance 35 ml/min; Glucose 123 mg/dl (70-99); Potassium 4.2 mmol/L (3.5-5.1); Sodium 137 mmol/L (135-145); eGFR > 60.00
[2023-08-15] MEDS: NOVOLOG FLEXPEN-LOW RESISTANCE SC (08:36)
[2023-08-15 08:59] LABS: Glucose - Point of Care 136 mg/dl (70-99)
[2023-08-15 09:39] LABS: Folate 3.5 ng/ml (2.76-20); Vitamin B12 926 pg/ml (239-931)
--- NOTE | 2023-08-15 09:45 | W.PN.HOSP.TC ---
Addendum entered and electronically signed by Sanjiv Washburn DO 08/15/23 16:33:
Abdominal MRI completed. Findings discussed with Dr. Lopez. Questionable CBD stone. Pancreatic IPMN noted.
Plan for EGD and EUS tomorrow depending upon schedule. N.p.o. after midnight.
Updated patient's son Adonay on the phone. All questions answered.
Original Note:
Today's Communication/Plan
-
Await abdominal MRI
Assessment / Plan
Assessment / Plan
Gen-AAOx3, NAD
HEENT-NC, AT, anicteric, clear oral mm
Neck-supple
CV-reg, no M, +S1/S2
Lungs-clear B/L
Abd-soft, distended, mildly tender
Ext-no edema
Musculoskeletal-no cyanosis, clubbing
Skin-warm and dry
Neuro-grossly non-focal
Psych-calm, cooperative
Abdominal pain -for at least the past month. Associated with worsening while eating, 15 pound weight loss over the past 5 months. Differential diagnosis includes chronic mesenteric ischemia. CT abdomen/pelvis showed common bile duct dilation with
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 Await MRI/MRCP. Discussed with gastroenterology. If MRI unrevealing, will need CTA to evaluate for mesenteric ischemia. May also need EGD, defer to gastroenterology.
Dysphagia -patient now denies.
Acute kidney injury -likely due to decreased oral intake with volume depletion. Renal function improving with IV fluids. Furosemide on hold.
Asymptomatic pyuria -on antibiotics empirically for possible UTI. Urine culture shows greater than 100,000 Klebsiella species. Completed course of antibiotics.
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 Most of her leukocytosis is likely related to this.
Chronic pain syndrome/chronic opiate dependence
Opiate induced constipation -had a small BM this morning. Continue bowel regimen.
Essential hypertension -stable.
Chronic urinary incontinence
Atrial fibrillation -unknown type. Eliquis on hold for now.
Hyperlipidemia -atorvastatin.
Osteoporosis
DM2 without hyperglycemia - metformin on hold. Glucose 123 this morning. Hemoglobin A1c 6.7%.
RLS
Hypothyroidism -levothyroxine. TSH normal.
Anxiety/depression
Chronic hearing loss
DNR
Anticipated Discharge: > 48 hours
Subjective/Interval History
-
Date of Service: August 15, 2023
Patient seen and examined. Complaining of abdominal fullness with eating.
Objective Data
-
Labs:
Laboratory Results
08/15/23
07:56
Sodium 137
Potassium 4.2
Chloride 108 H
Carbon Dioxide 22
BUN 17
Creatinine 0.9
Glucose 123 H
Calcium 8.2 L
Vital Signs:
Vital Signs
Temp Pulse Resp BP Pulse Ox
98.2 F 73 17 109/63 99
08/15/23 07:32 08/15/23 07:32 08/15/23 07:32 08/15/23 07:32 08/15/23 07:32
I&O
08/14/23 08/15/23 08/16/23
06:59 06:59 06:59
Intake Total 480 / 480 0 / 2040
Output Total 600 / 600 2290 / 2290
Balance -120 / -120 -250 / -250
Review of Systems
-
History Source: Patient
All other systems: Reviewed and negative
[2023-08-15 12:18] LABS: Magnesium 2.2 mg/dl (1.6-2.3)
[2023-08-15 12:53] LABS: Glucose - Point of Care 188 mg/dl (70-99)
[2023-08-15] MEDS: DURAGESIC 25 MCG/HR PATCH 1 PATCH TRANSDERM (13:00)
[2023-08-15] MEDS: NOVOLOG FLEXPEN-LOW RESISTANCE 1 UNITS SC ×2 (13:08→17:53)
[2023-08-15 15:35] VITALS: BP 125/50
[2023-08-15] MEDS: LIPITOR 40 MG PO (17:05)
[2023-08-15] MEDS: REQUIP 4 MG PO (17:06)
[2023-08-15 17:11] LABS: Glucose - Point of Care 199 mg/dl (70-99)
[2023-08-15 19:28] VITALS: BP 114/58
[2023-08-15 21:24] LABS: Glucose - Point of Care 116 mg/dl (70-99)
[2023-08-15 23:12] VITALS: BP 131/63
[2023-08-16] VITALS (9 sets, daily range): BP systolic 9–131; BP diastolic 51–67
[2023-08-16] MEDS: SYNTHROID 50 MCG PO (05:45)
[2023-08-16 05:50] LABS: Glucose - Point of Care 135 mg/dl (70-99)
[2023-08-16 06:58] LABS: % Basophils 0.1 % (0-2); % Eosinophils 0.4 % (0-6); % Immature Granulocytes 0.1 % (0-0.5); % Lymphocytes 89.9 % (20.5-51.1); % Monocytes 0.8 % (1.7-9.3); % Neutrophils 8.7 % (42.2-75.2); Absolute Eosinophils 0.2 10^3/uL (0-0.7); Absolute Immature Granulocytes 0.1 10^3/uL (0-0.05); Absolute Lymphocytes 37.9 10^3/uL (1.2-3.4); Absolute Monocytes 0.3 10^3/uL (0.1-0.6); Absolute Neutrophils 3.7 10^3/uL (1.4-6.5); Hemoglobin 11.1 g/dL (12.0-16.0); Mean Corp Hgb Conc. 32.6 g/dL (33.0-37.0); Mean Corpuscular Hgb 32.5 pg (27.0-31.0); Mean Corpuscular Volume 99.4 fL (81.0-99.0); Mean Platelet Volume 10.7 fL (7.4-10.4); Nucleated Red Blood Cells % 0.4 %; Platelet Count 167 10^3/uL (130-400); Red Blood Cell Count 3.42 10^6/uL (4.20-5.40); Red Cell Dist. Width 14.3 % (11.5-14.5)
[2023-08-16 07:05] LABS: White Blood Cell Count 42.1 10^3/uL (4.8-10.8)
[2023-08-16 07:16] LABS: Blood Urea Nitrogen 13 mg/dl (7-17); Carbon Dioxide 24 mmol/L (22-30); Chloride 110 mmol/L (98-107); Estimated Creatinine Clearance 40 ml/min; Glucose 118 mg/dl (70-99); Sodium 138 mmol/L (135-145); eGFR > 60.00
[2023-08-16] MEDS: 0.45%NACL IV (08:29)
[2023-08-16] MEDS: TOPROL XL 75 MG PO (08:45)
[2023-08-16] MEDS: CELEXA 10 MG PO (08:45)
[2023-08-16] MEDS: CARDIZEM CD 240 MG PO (08:45)
[2023-08-16] MEDS: ROXICODONE 10 MG PO ×2 (08:45→18:28)
[2023-08-16] MEDS: PROTONIX 40 MG PO (08:45)
[2023-08-16] MEDS: MIRALAX 17 GRAMS PO (08:46)
[2023-08-16] MEDS: FEOSOL 325 MG PO (08:46)
[2023-08-16] MEDS: SENOKOT-S 2 TABLET PO (08:46)
[2023-08-16] MEDS: HEPARIN 5000 UNITS SC ×2 (08:46→20:20)
[2023-08-16] MEDS: LR 1000 IV (09:30)
--- NOTE | 2023-08-16 10:56 | W.PN.HOSP.TC ---
Today's Communication/Plan
-
EGD/EUS
IVF in the interim
GI recs
Assessment / Plan
Assessment / Plan
Gen-AAOx3, NAD, hard of hearing.
HEENT-NC, AT, anicteric, clear oral mm
Neck-supple
CV-reg, no M, +S1/S2
Lungs-clear B/L
Abd-soft, distended, mildly tender
Ext-no edema
Musculoskeletal-no cyanosis, clubbing
Skin-warm and dry
Neuro-grossly non-focal
Psych-calm, cooperative
Abdominal pain -for at least the past month. Associated with worsening while eating, 15 pound weight loss over the past 5 months. Differential diagnosis includes chronic mesenteric ischemia. CT abdomen/pelvis showed common bile duct dilation with
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 Abdominal MRI completed. Questionable CBD stone. Pancreatic IPMN noted. Check LFTs. Plan for EGD and EUS today depending upon schedule. Remains NPO.
Dysphagia -patient now denies.
Acute kidney injury -likely due to decreased oral intake with volume depletion. Renal function improving with IV fluids. Furosemide on hold.
Asymptomatic pyuria -on antibiotics empirically for possible UTI. Urine culture shows greater than 100,000 Klebsiella species. Completed course of antibiotics.
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 Most of her leukocytosis is likely related to this.
Chronic pain syndrome/chronic opiate dependence
Opiate induced constipation -continue bowel regimen.
Essential hypertension -stable.
Chronic urinary incontinence
Atrial fibrillation -unknown type. Eliquis on hold for now.
Hyperlipidemia -atorvastatin.
Osteoporosis
DM2 without hyperglycemia - metformin on hold. Glucose 135 this morning. Hemoglobin A1c 6.7%.
RLS
Hypothyroidism -levothyroxine. TSH normal.
Anxiety/depression
Chronic hearing loss
Hypomag-replete/monitor
DNR
Anticipated Discharge: > 48 hours
Subjective/Interval History
-
Date of Service: August 16, 2023
states of nausea yesterday after dinner and abd discomfort
Objective Data
-
Labs:
Laboratory Results
08/16/23
06:11
WBC 42.1 H*
Hgb 11.1 L
Hct 34.0 L
Plt Count 167
Sodium 138
Potassium 4.0
Chloride 110 H
Carbon Dioxide 24
BUN 13
Creatinine 0.8
Glucose 118 H
Calcium 8.0 L
Total Bilirubin Pending
AST Pending
ALT Pending
Alkaline Phosphatase Pending
Vital Signs:
Vital Signs
Temp Pulse Resp BP Pulse Ox
98.2 F 78 17 131/66 97
08/16/23 07:36 08/16/23 07:36 08/16/23 07:36 08/16/23 07:36 08/16/23 07:36
I&O
08/15/23 08/16/23 08/17/23
06:59 06:59 06:59
Intake Total 2039 / 2039 1640 / 1640
Output Total 2290 / 2290 1650 / 1650
Balance -250 / -250 -10 / -10
Data Reviewed
-
Total Time Spent with Patient (in minutes): 55
[2023-08-16 12:12] LABS: ALT (SGPT) 13 U/L (0-35); AST (SGOT) 22 U/L (14-36); Albumin 2.6 g/dl (3.5-5.0); Alkaline Phosphatase 62 U/L (38-126); Direct Bilirubin 0.2 mg/dl (0.0-0.4); Total Bilirubin 0.2 mg/dl (0.2-1.3); Total Protein 5.2 g/dl (6.3-8.2)
[2023-08-16 12:14] LABS: Glucose - Point of Care 129 mg/dl (70-99)
--- NOTE | 2023-08-16 13:25 | W.PN.GI.CBS2 ---
Today's Communication / Plan
-
Continue n.p.o. for EGD/EUS
Assessment / Plan
-
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 Fernandez in the past with baseline white count around 20,000, GERD, atrial fibrillation on Eliquis, hypertension,
hyperlipidemia, diabetes, hypothyroidism, RLS, prior DVT, hearing loss with need of iPad for communication, lower extremity edema, osteoporosis, chronic pain syndrome chronic urinary incontinence and anemia who presents to the emergency room from
[facility] with left upper quadrant abdominal discomfort, weight loss of 10 pounds over the past month (she states 40 pounds over months), vomiting after eating and dyspepsia. WBC 39.6 (down from 54.9�baseline around 20,000), hemoglobin 10.0,
MCV 99.7, MCH 32.3, platelets 171, sodium 139, potassium 3.6, chloride 104, CO2 27, BUN 34, creatinine 1.4, lactic acid 1.7, total bilirubin 0.4, AST 20, ALT 11, alk phos 58, albumin 2.8, TSH 2.65, UA positive, urine culture preliminary
gram-negative bacilli. Patient was started on ceftriaxone for UTI.
MRI with MRCP, 08/15/2023: Gallbladder mildly distended at 4.4 cm with a small amount of wall thickening and/or periCholecystic edema, mild to moderate intrahepatic ductal dilatation, common hepatic duct is 13 mm, common bile duct is 7.8 mm in the
inferior head of the pancreas, questionable 4 mm filling defect in the distal common bile duct, multiple cystic masses more prominent in the pancreatic tail. Pancreatic duct mildly dilated at 4 to 5 mm. Cystic mass in the head at 3.4 cm x 2.8 cm x
1.3 cm. There is also a small round mass in the right mid kidney measuring 2 cm x 1. 6 cm which is suspicious for small renal cell carcinoma.
Impression:
LUQ pain
weight loss
Vomiting
Anemia-> macrocytic
Constipation
GERD-> on Pantoprazole
UTI-> UC prelim GNB
MIKKI-> cannot have IV contrast at this time
CLL-> baseline WBC count 20,000 per son.
Afib on Eliquis, last dose prior to arrival
Chronic pain-> Fentanyl patch, oxycodone
Plan:
-Continue Pantoprazole 40 mg daily
-Check iron studies, B12, Folate
-Patient would be agreeable for EGD, would need Eliquis washout
-Bowel regimen, add Miralax
-Further recommendations to be forthcoming
08/14/23 -renal function improving
--CT angiography has sensitivity and specificity of 90% the diagnosis of chronic mesenteric ischemia due to atherosclerosis
--Other etiologies gastroparesis in the setting of narcotics versus malignancy vs PUD vs celiac vs other
--
-- Review of her CT scan is concerning for probable biliary cyst with dilation up to 3.4 cm in the common bile duct measuring up to 11 mm. Gallbladder is present.
Patient really needs an MRI/MRCP to classify the cyst. LFTs are normal.
--- Patient's LFTs are normal which is common in biliary cysts --there is an increased risk of malignancy, particularly cholangiocarcinoma but also pancreatic and gallbladder cancers. Cancer is more common in patients who are older with type I and
IV cysts.
-- vince proceed with MRI/MRCP in light of this information.
--- may need CTA to look at the vasculature to see if this could potentially be chronic mesenteric ischemia, but will start with MRI/MRCP since it likely has higher yield and we need to see the biliary tree well
-- discussed with Wu
08/15/23 - awaiting morning BMP, iron studies, etc
-- MRI/MRCP today
-- continue ppi and bowel regimen
08/16/23 -discussed with the patient and her son Jaylen over the phone regarding her abnormal MRI with a greater than 3 cm pancreatic cystic lesion and mildly dilated ducts. We did not discuss the renal lesion which also needs to be investigated
--We reviewed the risks and benefits and the possible outcomes of her findings and she would like to proceed with diagnosis to better make decisions. EGD, EUS today with Dr. Fan, patient's Eliquis has been on hold
--Small renal lesion needs to be addressed
Total Time Spent with Patient (in minutes): 50
Subjective
Subjective
Date of Service: August 16, 2023
No events overnight
Objective
Data Reviewed
Laboratory Data:
Laboratory Results
08/16/23 06:11
08/16/23 06:11
Laboratory Results
Magnesium 2.2 mg/dl (1.6-2.3) 08/15/23 07:56
Total Bilirubin 0.2 mg/dl (0.2-1.3) 08/16/23 06:11
AST 22 U/L (14-36) 08/16/23 06:11
ALT 13 U/L (0-35) 08/16/23 06:11
Alkaline Phosphatase 62 U/L (38-126) 08/16/23 06:11
Lipase 39 U/L (23-300) 08/12/23 15:08
Vital Signs and I&O:
Vital Signs
Temp Pulse Resp BP Pulse Ox
98.2 F 78 17 131/66 97
08/16/23 07:36 08/16/23 07:36 08/16/23 07:36 08/16/23 07:36 08/16/23 07:36
I&O
08/15/23 08/16/23 08/17/23
06:59 06:59 06:59
Intake Total 2039 / 2039 1640 / 1640
Output Total 2290 / 2290 1650 / 1650
Balance -250 / -250 -10 / -10
Physical Exam
Physical Exam
HEENT: Anicteric and Other (deaf)
Cardiology: Normal Sinus Rhythm
Pulmonary: Clear
GI: Soft and Tender (Mildly tender in the left upper quadrant)
Extremities: No Edema
Neuro: Non Focal
[2023-08-16 15:26] LABS: Glucose - Point of Care 134 mg/dl (70-99)
[2023-08-16 17:06] LABS: Glucose - Point of Care 145 mg/dl (70-99)
[2023-08-16] MEDS: NOVOLOG FLEXPEN-LOW RESISTANCE SC (17:09)
[2023-08-16] MEDS: LIPITOR 40 MG PO (17:17)
[2023-08-16] MEDS: REQUIP 4 MG PO (17:22)
[2023-08-16 21:12] LABS: Hepatitis B Surface Antigen Negative (Negative)
[2023-08-16 21:13] LABS: Glucose - Point of Care 181 mg/dl (70-99)
[2023-08-16 21:29] LABS: Hepatitis B Surface Antibody Negative; Hepatitis C Antibody Negative (Negative)
[2023-08-16 21:41] LABS: Hepatitis A Antibody, Total Negative (Negative)
[2023-08-17] MEDS: LR 1000 IV (01:54)
[2023-08-17] MEDS: SYNTHROID 50 MCG PO (05:45)
[2023-08-17 06:40] LABS: % Basophils 0.3 % (0-2); % Eosinophils 0.4 % (0-6); % Immature Granulocytes 0.2 % (0-0.5); % Lymphocytes 87.8 % (20.5-51.1); % Monocytes 1.1 % (1.7-9.3); % Neutrophils 10.2 % (42.2-75.2); Absolute Basophils 0.1 10^3/uL (0-0.2); Absolute Eosinophils 0.1 10^3/uL (0-0.7); Absolute Immature Granulocytes 0.1 10^3/uL (0-0.05); Absolute Lymphocytes 30.5 10^3/uL (1.2-3.4); Absolute Monocytes 0.4 10^3/uL (0.1-0.6); Absolute Neutrophils 3.5 10^3/uL (1.4-6.5); Hematocrit 28.1 % (37.0-47.0); Hemoglobin 9.1 g/dL (12.0-16.0); Mean Corp Hgb Conc. 32.4 g/dL (33.0-37.0); Mean Corpuscular Hgb 32.2 pg (27.0-31.0); Mean Corpuscular Volume 99.3 fL (81.0-99.0); Mean Platelet Volume 10.5 fL (7.4-10.4); Nucleated Red Blood Cells % 0 %; Platelet Count 174 10^3/uL (130-400); Red Blood Cell Count 2.83 10^6/uL (4.20-5.40); Red Cell Dist. Width 14.3 % (11.5-14.5); White Blood Cell Count 34.7 10^3/uL (4.8-10.8)
[2023-08-17 07:00] VITALS: BP 126/52
[2023-08-17 07:17] LABS: ALT (SGPT) 12 U/L (0-35); AST (SGOT) 19 U/L (14-36); Alkaline Phosphatase 54 U/L (38-126); Blood Urea Nitrogen 13 mg/dl (7-17); Calcium 7.7 mg/dl (8.4-10.2); Carbon Dioxide 25 mmol/L (22-30); Chloride 109 mmol/L (98-107); Estimated Creatinine Clearance 35 ml/min; Glucose 105 mg/dl (70-99); Potassium 3.9 mmol/L (3.5-5.1); Sodium 136 mmol/L (135-145); Total Bilirubin 0.3 mg/dl (0.2-1.3); Total Protein 4.3 g/dl (6.3-8.2); eGFR > 60.00
[2023-08-17] MEDS: SENOKOT-S 2 TABLET PO (07:55)
[2023-08-17] MEDS: MIRALAX 17 GRAMS PO ×2 (07:58→21:07)
[2023-08-17] MEDS: CELEXA 10 MG PO (07:58)
[2023-08-17] MEDS: TOPROL XL 75 MG PO (07:58)
[2023-08-17] MEDS: ROXICODONE 10 MG PO ×2 (07:58→18:12)
[2023-08-17] MEDS: FLAGYL 250 MG PO (07:58)
[2023-08-17] MEDS: FEOSOL 325 MG PO (07:58)
[2023-08-17 07:59] LABS: Glucose - Point of Care 121 mg/dl (70-99)
[2023-08-17] MEDS: HEPARIN 5000 UNITS SC ×2 (07:59→21:08)
[2023-08-17] MEDS: CARDIZEM CD 240 MG PO (07:59)
[2023-08-17] MEDS: PROTONIX 40 MG PO (07:59)
[2023-08-17] MEDS: NOVOLOG FLEXPEN-LOW RESISTANCE SC (08:01)
--- NOTE | 2023-08-17 09:25 | PN.CDI ---
CDI
- -
CDI:
Physician Documentation Request
Admit Date: 08/15/23 12:52
Dear Doctor Mi,
Clinical Indicators:
Patient admitted with abdominal pain; reports 15 lb weight loss over past 5 months.
08/12 note/assessment: -'Compared to 120 lbs 1 month ago pt with 6 lb (5%) weight loss in 1 month
significant.'
-'With 5% weight loss in 1 month and < 75% estimated needs in > 7 days, pt meet
AND/ASPEN criteria for moderate protein calorie malnutrition of acute illness.'
Based on the information, which of the following most accurately represents the patient's nutritional status?
Moderate Protein Calorie Malnutrition
Mild Protein Calorie Malnutrition
Other (please specify)
[place] Criteria ([facility] 2017)
2 or more criteria must be present for either
non severe or severe malnutrition
Note that the criteria differs related to the
presence of an acute or chronic illness
Acute Illness Chronic Illness
Energy Intake Non Severe: <75% for >7 days Non Severe: <75% for >1 month
Severe: <50% for >5 days Severe: <75% for >1 month
Weight Loss Non Severe: 1-2% over 1 week Non Severe: 5% over 1 month
5% over 1 month 7.5% over 3 months
7.5% over 3 months 10% over 6 months
1 year N/A 20% over 1 year
Severe: >2% over 1 week Severe: >5% over 1 month
>5% over 1 month >7.5% over 3 months
>7.5% over 3 months >10% over 6 months
1 year N/A >20% over 1 year
Body Fat Non Severe: Mild Decrease Non Severe: Mild Loss
Severe: Moderate Decrease Severe: Severe Loss
Muscle Mass Non Severe: Mild Decrease Non Severe: Mild Loss
Severe: Moderate Decrease Severe: Severe Loss
Fluid Accumulation Non Severe: Mild Accumulation Non Severe: Mild Accumulation
Severe: Moderate to severe Severe: Moderate to severe
accumulation accumulation
Reduced Log Sorting Supervisor Strength Non Severe: N/A Non Severe: N/A
Severe: Measurably reduced Severe: Measurably reduced
Additional criteria that can be used to Determine if Mild or Moderate Malnutrition ([employer] Manual 2018)
Mild Moderate Severe
Albumin gm/dl <3.0 gm/dl <2.5 gm/dl <2.0 gm/dl
Pre Albumin mg/dl <15 gm/dl <10 mg/dl <5.0 mg/dl
BMI <18.5 <17 <16
Use of terms such as suspected, likely, concern for, or probable (associated with a specific diagnosis that is being evaluated, monitored, or treated as if it exists) are acceptable and can be coded in the inpatient setting, when documented at the
time of discharge.
Thank you,
ABRIL Hopper RN
CDI Specialist
available via tiger text
Please use your independent medical judgment in providing your response.
--- NOTE | 2023-08-17 10:17 | W.PN.GI.CBS2 ---
Addendum entered and electronically signed by June Anderson MD 08/17/23 13:03:
I saw and examined the patient.
The OPTICAL ENGINEERING MANAGER or PA's note was reviewed and I agree with the note.
Comment: Postprandial abdominal pain, bilious vomiting, weight loss.
EGD/EUS with cystic lesions in the pancreas, cytology/FNA pending.
Agree with CT scan of the abdomen pelvis with oral contrast to evaluate the abdominal pain.
Will follow-up on the above testing.
Addendum entered and electronically signed by ROBIN Sen 08/17/23 10:47:
Discussed with Dr. Fan, can cancel CEA and Ca 19-9.
Original Note:
Today's Communication / Plan
-
CT Abd/Pelvis
Await Path/cytology
Check pending labs
As per plan
Assessment / Plan
-
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 Fernandez in the past with baseline white count around 20,000, GERD, atrial fibrillation on Eliquis, hypertension,
hyperlipidemia, diabetes, hypothyroidism, RLS, prior DVT, hearing loss with need of iPad for communication, lower extremity edema, osteoporosis, chronic pain syndrome chronic urinary incontinence and anemia who presents to the emergency room from
[facility] with left upper quadrant abdominal discomfort, weight loss of 10 pounds over the past month (she states 40 pounds over months), vomiting after eating and dyspepsia. WBC 39.6 (down from 54.9�baseline around 20,000), hemoglobin 10.0,
MCV 99.7, MCH 32.3, platelets 171, sodium 139, potassium 3.6, chloride 104, CO2 27, BUN 34, creatinine 1.4, lactic acid 1.7, total bilirubin 0.4, AST 20, ALT 11, alk phos 58, albumin 2.8, TSH 2.65, UA positive, urine culture preliminary
gram-negative bacilli. Patient was started on ceftriaxone for UTI.
MRI with MRCP, 08/15/2023: Gallbladder mildly distended at 4.4 cm with a small amount of wall thickening and/or periCholecystic edema, mild to moderate intrahepatic ductal dilatation, common hepatic duct is 13 mm, common bile duct is 7.8 mm in the
inferior head of the pancreas, questionable 4 mm filling defect in the distal common bile duct, multiple cystic masses more prominent in the pancreatic tail. Pancreatic duct mildly dilated at 4 to 5 mm. Cystic mass in the head at 3.4 cm x 2.8 cm x
1.3 cm. There is also a small round mass in the right mid kidney measuring 2 cm x 1. 6 cm which is suspicious for small renal cell carcinoma.
EGD 08/16/23: (Dr. Fan)
- Normal esophagus.
- Granular gastric mucosa. Biopsied.
- Normal duodenal bulb, first portion of the duodenum
and second portion of the duodenum.
EUS 08/16/23: (Dr. Fan) - Multiple cystic lesions were seen in the pancreatic
body and pancreatic tail. The largest cystic lesion
was near the neck of pancreas measuring 18 x 19 mm.
- A cystic lesion was seen in the pancreatic head.
Fine needle aspiration for fluid performed.
- Main pancreatic duct (MPD) diameter was measured.
Endosonographically, the MPD had a dilated appearance.
- There was dilation in the common bile duct which
measured up to 9 mm.
- There was no sign of significant pathology in the
ampulla.
Impression:
LUQ pain
weight loss
Vomiting
Anemia-> macrocytic
Constipation
GERD-> on Pantoprazole
UTI-> UC prelim GNB
MIKKI-> cannot have IV contrast at this time
CLL-> baseline WBC count 20,000 per son.
Afib on Eliquis, last dose prior to arrival
Chronic pain-> Fentanyl patch, oxycodone
08/14/23 -renal function improving
--CT angiography has sensitivity and specificity of 90% the diagnosis of chronic mesenteric ischemia due to atherosclerosis
--Other etiologies gastroparesis in the setting of narcotics versus malignancy vs PUD vs celiac vs other
--
-- Review of her CT scan is concerning for probable biliary cyst with dilation up to 3.4 cm in the common bile duct measuring up to 11 mm. Gallbladder is present.
Patient really needs an MRI/MRCP to classify the cyst. LFTs are normal.
--- Patient's LFTs are normal which is common in biliary cysts --there is an increased risk of malignancy, particularly cholangiocarcinoma but also pancreatic and gallbladder cancers. Cancer is more common in patients who are older with type I and
IV cysts.
-- vince proceed with MRI/MRCP in light of this information.
--- may need CTA to look at the vasculature to see if this could potentially be chronic mesenteric ischemia, but will start with MRI/MRCP since it likely has higher yield and we need to see the biliary tree well
-- discussed with Wu
08/15/23 - awaiting morning BMP, iron studies, etc
-- MRI/MRCP today
-- continue ppi and bowel regimen
08/16/23 -discussed with the patient and her son Jaylen over the phone regarding her abnormal MRI with a greater than 3 cm pancreatic cystic lesion and mildly dilated ducts. We did not discuss the renal lesion which also needs to be investigated
--We reviewed the risks and benefits and the possible outcomes of her findings and she would like to proceed with diagnosis to better make decisions. EGD, EUS today with Dr. Fan, patient's Eliquis has been on hold
--Small renal lesion needs to be addressed
08/17/23
-Await EGD/EUS path, cytology
-Continue Flagyl 250 mg po BID x 3 days
-Ok to resume Eliquis 2 days after EGD/EUS per GI
-Check CT Abd/Pelvis with oral and IV contrast still with post prandial pain
-Await Ca 19-9, CEA
-IM to address small renal lesion seen on MR
-Continue Pantoprazole 40 mg daily
-Increase Miralax to BID, patient only having small BMs
-Continue Full liquid for now and will likely increase after CT today.
Subjective
Subjective
Date of Service: August 17, 2023
Patient tolerating full liquid diet. No regurgitation or vomiting. States that she still has post prandial abdominal pain. She is status post EGD/EUS yesterday with Dr. Fan that she had normal esophagus. Granular mucosa. Normal duodenal bulb,
first portion of the duodenum and second portion of the duodenum. Biopsies taken and path pending. EUS was performed that showed multiple cystic lesions seen in the pancreatic body and pancreatic tail. Largest cystic lesion was near the neck of
the pancreas measuring 18 x 19 mm. A cystic lesion was seen in the pancreatic head. FNA was performed. Main pancreatic duct diameter was measured. This had a dilated appearance. There is dilatation of the CBD which was measured up to 9 mm.
There was no sign of significant pathology in the ampulla. Pathology and cytology pending. Patient has been placed on Flagyl 250 mg p.o. twice daily for 3 days. Is okay to resume Eliquis at prior dose 2 days from EGD/EUS per GI. Will add on
Ca19-9 and CEA levels. Will also repeat CT Abd/Pelvis with oral and IV contrast as she was unable to have IV earlier in admission and the one in ER was done without oral contrast.
Objective
Data Reviewed
Laboratory Data:
Laboratory Results
08/17/23 06:22
08/17/23 06:22
Laboratory Results
Magnesium 2.2 mg/dl (1.6-2.3) 08/15/23 07:56
Total Bilirubin 0.3 mg/dl (0.2-1.3) 08/17/23 06:22
AST 19 U/L (14-36) 08/17/23 06:22
ALT 12 U/L (0-35) 08/17/23 06:22
Alkaline Phosphatase 54 U/L (38-126) 08/17/23 06:22
Lipase 39 U/L (23-300) 08/12/23 15:08
Vital Signs and I&O:
Vital Signs
Temp Pulse Resp BP Pulse Ox
98 F 88 20 126/52 97
08/17/23 07:00 08/17/23 07:00 08/17/23 07:00 08/17/23 07:00 08/17/23 07:00
I&O
08/16/23 08/17/23 08/18/23
06:59 06:59 06:59
Intake Total 1640 / 1640 1320 / 1320
Output Total 1650 / 1650 410 / 410
Balance -10 / -10 910 / 910
Physical Exam
Physical Exam
HEENT: Anicteric
Cardiology: Normal Sinus Rhythm
Pulmonary: Clear (anterior)
GI: Soft, Non Distended, Non Tender and Normal Bowel Sounds
Extremities: Edema (+ B/L ISABELL)
Neuro: Non Focal and Other (NAKNEK, requires Ipad to communicate)
[2023-08-17] MEDS: OMNIPAQUE 50 ML PO (11:20)
[2023-08-17 12:10] LABS: Glucose - Point of Care 188 mg/dl (70-99)
[2023-08-17] MEDS: NOVOLOG FLEXPEN-LOW RESISTANCE 1 UNITS SC ×2 (12:11→16:27)
--- NOTE | 2023-08-17 13:28 | W.PN.HOSP.TC ---
Today's Communication/Plan
-
await CT abd/pelvis
liquid diet for now
trend cr
hold lasix
Assessment / Plan
Assessment / Plan
Gen-AAOx3, NAD, hard of hearing.
HEENT-NC, AT, anicteric, clear oral mm
Neck-supple
CV-reg, no M, +S1/S2
Lungs-clear B/L
Abd-soft, distended, mildly tender
Ext-no edema
Musculoskeletal-no cyanosis, clubbing
Skin-warm and dry
Neuro-grossly non-focal
Psych-calm, cooperative
Abdominal pain -for at least the past month. Associated with worsening while eating, 15 pound weight loss over the past 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 Abdominal MRI completed.
Questionable CBD stone. Pancreatic IPMN noted. Status post EGD and EUS status post pancreatic cyst biopsy. Possibility of ischemia versus CLL related. CT abdomen pelvis with p.o. and IV contrast ordered for today. Continue with liquid diet for
now.
Dysphagia -patient now denies.
Acute kidney injury -likely due to decreased oral intake with volume depletion. Renal function improving with IV fluids. Furosemide on hold.
Asymptomatic pyuria -on antibiotics empirically for possible UTI. Urine culture shows greater than 100,000 Klebsiella species. Completed course of antibiotics.
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 Most of her leukocytosis is likely related to this.
Right renal lesion-known per patient son. CT abdomen pelvis ordered can further evaluate. Also recommend to see outpatient urology/oncology to son.
Chronic pain syndrome/chronic opiate dependence
Opiate induced constipation -continue bowel regimen.
Essential hypertension -stable.
Chronic urinary incontinence
Atrial fibrillation -unknown type. Eliquis on hold for now.
Hyperlipidemia -atorvastatin.
Osteoporosis
DM2 without hyperglycemia - metformin on hold. Glucose 135 this morning. Hemoglobin A1c 6.7%.
RLS
Hypothyroidism -levothyroxine. TSH normal.
Anxiety/depression
Chronic hearing loss
Hypomag-replete/monitor
DNR
Updated son over the phone in detail
Anticipated Discharge: > 48 hours
Subjective/Interval History
-
Date of Service: August 17, 2023
States of upper and lower quadrant abdominal pain
Objective Data
-
Labs:
Laboratory Results
08/17/23
06:22
WBC 34.7 H
Hgb 9.1 L
Hct 28.1 L
Plt Count 174
Sodium 136
Potassium 3.9
Chloride 109 H
Carbon Dioxide 25
BUN 13
Creatinine 0.9
Glucose 105 H
Calcium 7.7 L
Total Bilirubin 0.3
AST 19
ALT 12
Alkaline Phosphatase 54
Vital Signs:
Vital Signs
Temp Pulse Resp BP Pulse Ox
98 F 88 20 126/52 97
08/17/23 07:00 08/17/23 07:00 08/17/23 07:00 08/17/23 07:00 08/17/23 07:00
I&O
08/16/23 08/17/23 08/18/23
06:59 06:59 06:59
Intake Total 1640 / 1640 1320 / 1320
Output Total 1650 / 1650 410 / 410
Balance -10 / -10 910 / 910
[2023-08-17 15:00] VITALS: BP 143/56
[2023-08-17 16:24] LABS: Glucose - Point of Care 194 mg/dl (70-99)
[2023-08-17] MEDS: REQUIP 4 MG PO (17:31)
[2023-08-17] MEDS: LIPITOR 40 MG PO (17:31)
--- NOTE | 2023-08-17 18:21 | CON.GS ---
Medical History
-
Chief Complaint: Abdominal pain
History of Present Illness:
Patient is an 88 yo F with a PMH of CLL (not currently on treatment), A-fib (on Eliquis, LD on admission), HTN, HLD, NIDDM, hypothyroidism, RLS, history of DVT, s/p RIGHT ELLEN and RIGHT patellar repair. Mr. Whiting presented to on 08/13/2023 with
intermittent central abdominal discomfort. Symptoms occurred during the time of eating and would be alleviated with cessation of PO intake. Somewhat difficult to definitively determine however it sounds like this was occurring on an almost daily
basis and with most meals for the past 2 to 3 months. She reports a 10 pound weight loss during this time. She does have issues with constipation and does not move her bowels in days. No nausea or vomiting. She does report some indigestion. No
fevers or chills. No jaundice, pale stools, or tea colored urine.
Workup and management thus far has been notable for dilation of the gallbladder as well as biliary ductal dilation with associated choledochal cysts. She underwent an MRI which demonstrated no evidence of cholelithiasis, question of a distal CBD
filling defect, dilation of the pancreatic duct with multiple cystic masses, small mass of the RIGHT kidney most likely representing an RCC, several simple cysts within the liver, and bilateral pulmonary edema. She then subsequently underwent an
EGD/EUS where she was noted to have multiple cystic lesions within the pancreas (aspiration of cystic fluid was performed) she was also noted to have dilation of the common bile duct without any ampullary masses. Pathology is currently pending.
Laboratory markers including a CEA and CA 19-9 are pending. Labs are notable for a elevated WBC to 34, drifting hemoglobin down to 9.1, normal platelets, normal electrolytes, normal renal function, normal bilirubin, LFTs, ALP, and lipase. She
subsequently underwent an additional CT scan which was concerning for possible cholecystitis.
On evaluation she denies any current abdominal pain. She is tolerating a full liquid diet.
Past Medical History
Past Medical History: Arrhythmias (A-fib), Cancer (CLL), GERD, HTN, Hypercholesterolemia, Hypothyroidism, NIDDM and Other (RLS, DVT)
Past Surgical History: Orthopedic (RIGHT ELLEN, RIGHT patellar tendon repair)
Social History
Tobacco: Non-Smoker
Alcohol: None
Drug: None
Personal:
Living: Longterm
Family History
Family History: Reviewed & Noncontributory
Allergies / Home Medications
Allergy/AdvReac Type Severity Reaction Status Date / Time
No Known Allergies Allergy Unverified 08/12/23 14:50
�Medication �Instructions �Recorded �Confirmed �Type
acetaminophen 325 mg tablet 650 mg PO Q4H PRN mild 08/12/23 08/12/23 History
pain/fever>100.4
alendronate 70 mg tablet 70 mg PO WE osteoporosis 08/12/23 08/12/23 History
apixaban 2.5 mg tablet (Eliquis) 2.5 mg PO BID@0830,1830 Blood Clot 08/12/23 08/12/23 History
Prevention/Tx
atorvastatin 40 mg tablet 40 mg PO QPM High Cholesterol 08/12/23 08/12/23 History
bisacodyl 10 mg rectal suppository 10 mg GA DAILY PRN if mom is 08/12/23 08/12/23 History
(Dulcolax (bisacodyl)) ineffective
calcium carbonate 500 mg PO Q8H PRN indigestion 08/12/23 08/12/23 History
citalopram 10 mg tablet 10 mg PO DAILY Depression 08/12/23 08/12/23 History
diltiazem HCl 240 mg capsule,24 240 mg PO DAILY Blood Pressure 08/12/23 08/12/23 History
hr,extended release
fentanyl 25 mcg/hr transdermal 1 patch transdermal Q72H chronic 08/12/23 08/12/23 History
patch pain
ferrous sulfate 325 mg (65 mg 325 mg PO DAILY Supplement 08/12/23 08/12/23 History
iron) tablet
furosemide 20 mg tablet 40 mg PO DAILY Fluid 08/12/23 08/12/23 History
Retention/Swelling
levothyroxine 50 mcg tablet 50 mcg PO DAILY@0630 Thyroid 08/12/23 08/12/23 History
magnesium hydroxide 400 mg/5 mL 30 ml PO HS PRN constipation 08/12/23 08/12/23 History
oral suspension (Milk of Magnesia)
metformin 500 mg tablet 500 mg PO BID@0830,1830 Diabetes 08/12/23 08/12/23 History
metoprolol succinate 25 mg 75 mg PO DAILY Blood Pressure 08/12/23 08/12/23 History
tablet,extended release 24 hr
naloxone 4 mg/actuation nasal 4 mg intranasal PRN PRN opioid 08/12/23 08/12/23 History
spray (Narcan) overdose
oxycodone 10 mg tablet 10 mg PO BID@0830,1830 Pain 08/12/23 08/12/23 History
pantoprazole 40 mg tablet,delayed 40 mg PO DAILY Gastrointestinal 08/12/23 08/12/23 History
release Issue
ropinirole 4 mg tablet 4 mg PO QPM restless legs 08/12/23 08/12/23 History
sennosides 8.6 mg-docusate sodium 2 tab-cap PO DAILY Constipation 08/12/23 08/12/23 History
50 mg tablet (Senna-S)
Review of Systems
-
A 10 point review of systems was completed, and was negative except as per HPI.
Physical Exam
Vital Signs
Temp Pulse Resp BP Pulse Ox
98.3 F 71 16 143/56 98
08/17/23 15:00 08/17/23 15:00 08/17/23 15:00 08/17/23 15:00 08/17/23 15:00
Body Mass Index (BMI) 19.6
Lab Results
08/17/23 06:22
08/17/23 06:22
WBC 34.7 10^3/uL (4.8-10.8) H 08/17/23 06:22
Hgb 9.1 g/dL (12.0-16.0) L 08/17/23 06:22
Hct 28.1 % (37.0-47.0) L 08/17/23 06:22
Plt Count 174 10^3/uL (130-400) 08/17/23 06:22
Abs Immat Gran (auto) 0.1 10^3/uL (0-0.05) H 08/17/23 06:22
Neutrophils % 10.2 % (42.2-75.2) L 08/17/23 06:22
Physical Exam
General: Well Developed, Well Nourished and No Apparent Distress
HEENT: Normocephalic and Anicteric
Respiratory: Non Labored Respirations
Cardiac: Regular Rhythm
GI: Soft, Non Tender, Non Distended and Other (Nonperitoneal (no rebound or guarding))
Musculoskeletal: No Edema
Skin: Warm and Dry
Neuro: Nonfocal/Grossly Intact
Data Reviewed
-
CT Scan: Image Personally Visualized and interpreted and Report Reviewed by me
MRI: Image Personally Visualized and interpreted and Report Reviewed by me
Labs: Labs Reviewed by me
Assessment / Plan
-
Patient is an 88 yo F p/w abdominal pain likely of hepatobiliary in origin.
General surgery asked to comment given the CT scan findings of a dilated gallbladder with mild gallbladder wall thickening. Patient does not give a clear history consistent with that of biliary colic in the sense that her pain is reported to
resolve with cessation of eating, and occurs almost immediately during the time of eating. She also has no evidence of any stones on MRI. She has dilation of her entire biliary ductal system and so dilation of her gallbladder is not unexpected as
this is likely decompressing the system. Additionally, cholecystitis would not explain her CBD and pancreatic ductal dilation. Awaiting complete workup from recent EUS/EGD. Would not recommend cholecystectomy at this time until workup is
completed given the unclear indication. Plan for a HIDA scan to help elucidate the potential need for a cholecystectomy. Okay to continue with fulls from a General Surgery standpoint as she seems to be tolerating this currently and without any
pain.
-- HIDA scan
-- F/u pathology from EUS
-- CEA and CA 19-9 pending
-- OK for fulls and LFD as tolerated from a General Surgery perspective
[2023-08-17] MEDS: ZOSYN 50 IV ×2 (19:24→23:05)
[2023-08-17 21:09] LABS: Glucose - Point of Care 172 mg/dl (70-99)
[2023-08-17 23:56] VITALS: BP 124/47
[2023-08-18] MEDS: SYNTHROID 50 MCG PO (05:37)
[2023-08-18] MEDS: ZOSYN 50 IV ×3 (05:37→18:17)
[2023-08-18 07:00] VITALS: BP 138/65
[2023-08-18 07:15] LABS: ALT (SGPT) 14 U/L (0-35); AST (SGOT) 21 U/L (14-36); Albumin 2.2 g/dl (3.5-5.0); Alkaline Phosphatase 50 U/L (38-126); Blood Urea Nitrogen 12 mg/dl (7-17); Calcium 8.2 mg/dl (8.4-10.2); Carbon Dioxide 24 mmol/L (22-30); Chloride 108 mmol/L (98-107); Estimated Creatinine Clearance 35 ml/min; Glucose 114 mg/dl (70-99); Potassium 4.3 mmol/L (3.5-5.1); Sodium 135 mmol/L (135-145); Total Bilirubin 0.4 mg/dl (0.2-1.3); Total Protein 4.6 g/dl (6.3-8.2); eGFR > 60.00
[2023-08-18 08:03] LABS: Glucose - Point of Care 127 mg/dl (70-99)
[2023-08-18] MEDS: NOVOLOG FLEXPEN-LOW RESISTANCE SC ×2 (08:10→13:39)
--- NOTE | 2023-08-18 08:27 | W.PN.GS2 ---
Today's Communication / Plan
-
HIDA
Assessment / Plan
-
88 yo F p/w abdominal pain likely of hepatobiliary in origin
No pain this am, no ttp on exam
Plan:
NPO for HIDA, OK for diet after imaging study
F/U path, tumor markers
DVT px
Subjective Data
-
Date of Service: August 18, 2023
AFVSS, no complaints
Objective Data
-
Intake and Output
08/17/23 08/18/23 08/19/23
06:59 06:59 06:59
Intake Total 1320 / 1320 1200 / 1200
Output Total 410 / 410
Balance 910 / 910 1200 / 1200
Intake:
Oral fluids 600 / 600 1200 / 1200
IV fluids (Total) 720 / 720
Output:
Urine, Voided 410 / 410
Other:
How many times incontinent 1
SMALL amount urine
How many times incontinent 2
MODERATE amount urine
How many times incontinent 1 2
SATURATED amount urine
Vital Signs
Temp Pulse Resp BP Pulse Ox
97.3 F 82 18 138/65 98
08/18/23 07:00 08/18/23 07:00 08/18/23 07:00 08/18/23 07:00 08/18/23 07:00
Lab Results
08/17/23 06:22
08/18/23 06:24
Calcium 8.2 mg/dl (8.4-10.2) L 08/18/23 06:24
Magnesium 2.2 mg/dl (1.6-2.3) 08/15/23 07:56
Total Bilirubin 0.4 mg/dl (0.2-1.3) 08/18/23 06:24
Direct Bilirubin 0.2 mg/dl (0.0-0.4) 08/16/23 06:11
AST 21 U/L (14-36) 08/18/23 06:24
ALT 14 U/L (0-35) 08/18/23 06:24
Alkaline Phosphatase 50 U/L (38-126) 08/18/23 06:24
Total Protein 4.6 g/dl (6.3-8.2) L 08/18/23 06:24
Albumin 2.2 g/dl (3.5-5.0) L 08/18/23 06:24
Physical Exam
-
Gen: NAD
Abd: soft, nt
[2023-08-18] MEDS: ROXICODONE 10 MG PO ×2 (09:24→18:16)
[2023-08-18] MEDS: PROTONIX 40 MG PO (09:24)
[2023-08-18] MEDS: TOPROL XL 75 MG PO (09:24)
[2023-08-18] MEDS: SENOKOT-S PO ×2 (09:24→09:29)
[2023-08-18] MEDS: FEOSOL 325 MG PO (09:25)
[2023-08-18] MEDS: CARDIZEM CD 240 MG PO (09:25)
[2023-08-18] MEDS: HEPARIN 5000 UNITS SC ×2 (09:25→22:03)
[2023-08-18] MEDS: CELEXA 10 MG PO (09:25)
[2023-08-18] MEDS: MIRALAX PO ×2 (09:25→09:29)
--- NOTE | 2023-08-18 10:25 | WOUNDNOTE ---
[facility] RN note: Patient seen for HAPI for R buttocks stage 2 pressure injury. R sacral/buttocks with 2 small stage 2 pressure injuries suspect is not new. She stated she probably had it prior to coming to the hospital d/t she had pain in the region
before admission. Silicone border foam maintained. Sacrum red and intact. Protective silicone border foam applied. Mild shine/groin MASD. Patient turned to L semi side lying position with help from [facility] RN student Amanda. Patient is able to turn self
in bed. Instructed patient pressure injury prevention measures. Heels off bed with pillow and air chair cushion. Patient currently NPO. Care plan to be updated. Consult as needed.
--- NOTE | 2023-08-18 10:32 | W.PN.HOSP.TC ---
Addendum entered and electronically signed by Tyler Stark MD 08/18/23 10:53:
Moderate protein caloric malnutrition of acute illness
Original Note:
Today's Communication/Plan
-
HIDA
IV abx
bowel regimen
GS/GI recs
Assessment / Plan
Assessment / Plan
Gen-AAOx3, NAD, hard of hearing.
HEENT-NC, AT, anicteric, clear oral mm
Neck-supple
CV-reg, no M, +S1/S2
Lungs-clear B/L
Abd-soft, non distended, mildly tender
Ext-no edema
Musculoskeletal-no cyanosis, clubbing
Skin-warm and dry
Neuro-grossly non-focal
Psych-calm, cooperative
Abdominal pain -for at least the past month. Associated with worsening while eating, 15 pound weight loss over the past 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 Abdominal MRI completed.
Questionable CBD stone. Pancreatic IPMN noted. Status post EGD and EUS status post pancreatic cyst biopsy. Possibility of ischemia versus CLL related. CT abdomen pelvis with distended gallbladder and stercoral colitis/fecal impaction. MiraLAX
twice daily. Bowel regimen adjusted per GI. HIDA scan pending General surgery on board. N.p.o. and IV antibiotics for now
Dysphagia -patient now denies.
Acute kidney injury -likely due to decreased oral intake with volume depletion. Renal function improving with IV fluids. Furosemide on hold.
Asymptomatic pyuria -on antibiotics empirically for possible UTI. Urine culture shows greater than 100,000 Klebsiella species. Completed course of antibiotics.
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 Most of her leukocytosis is likely related to this.
Right renal lesion-known per patient son. CT abdomen pelvis ordered can further evaluate. Also recommend to see outpatient urology/oncology to son.
Chronic pain syndrome/chronic opiate dependence
Opiate induced constipation -continue bowel regimen.
Essential hypertension -stable.
Chronic urinary incontinence
Atrial fibrillation -unknown type. Eliquis on hold for now. If no plan for surgery then plan to restart soon,.
Hyperlipidemia -atorvastatin.
Osteoporosis
DM2 without hyperglycemia - metformin on hold. Glucose 127this morning. Hemoglobin A1c 6.7%.
RLS
Hypothyroidism -levothyroxine. TSH normal.
Anxiety/depression
Chronic hearing loss
Hypomag-replete/monitor
DNR
Anticipated Discharge: > 48 hours
Subjective/Interval History
-
Date of Service: August 18, 2023
Denies nausea or vomiting this am
states had bm earlier today
Objective Data
-
Labs:
Laboratory Results
08/18/23
06:24
Sodium 135
Potassium 4.3
Chloride 108 H
Carbon Dioxide 24
BUN 12
Creatinine 0.9
Glucose 114 H
Calcium 8.2 L
Total Bilirubin 0.4
AST 21
ALT 14
Alkaline Phosphatase 50
Vital Signs:
Vital Signs
Temp Pulse Resp BP Pulse Ox
97.3 F 82 18 138/65 98
08/18/23 07:00 08/18/23 09:25 08/18/23 07:00 08/18/23 09:25 08/18/23 07:00
I&O
08/17/23 08/18/23 08/19/23
06:59 06:59 06:59
Intake Total 1320 / 1320 1200 / 1200
Output Total 410 / 410
Balance 910 / 910 1200 / 1200
Data Reviewed
-
Total Time Spent with Patient (in minutes): 55
[2023-08-18 13:16] LABS: Glucose - Point of Care 124 mg/dl (70-99)
[2023-08-18] MEDS: DURAGESIC 25 MCG/HR PATCH 1 PATCH TRANSDERM (13:58)
[2023-08-18 15:00] VITALS: BP 137/55
--- NOTE | 2023-08-18 16:16 | W.PN.GI.CBS2 ---
Addendum entered and electronically signed by June Anderson MD 08/18/23 16:51:
I saw and examined the patient.
The [employer] or PA's note was reviewed and I agree with the note.
Comment: Patient denies any abdominal pain at this time, had couple of large bowel movements overnight
HIDA scan negative
Will advance to a low-fat diet
Part of the abdominal pain could be related to constipation
Continue Senokot/Colace combination and MiraLAX twice a day
Await FNA from EUS/ERCP
Will follow
Original Note:
Today's Communication / Plan
-
Will trial low-fat diet. Await FNA cytology.
Assessment / Plan
-
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 Fernandez in the past with baseline white count around 20,000, GERD, atrial fibrillation on Eliquis, hypertension,
hyperlipidemia, diabetes, hypothyroidism, RLS, prior DVT, hearing loss with need of iPad for communication, lower extremity edema, osteoporosis, chronic pain syndrome chronic urinary incontinence and anemia who presents to the emergency room from
[facility] with left upper quadrant abdominal discomfort, weight loss of 10 pounds over the past month (she states 40 pounds over months), vomiting after eating and dyspepsia. WBC 39.6 (down from 54.9�baseline around 20,000), hemoglobin 10.0,
MCV 99.7, MCH 32.3, platelets 171, sodium 139, potassium 3.6, chloride 104, CO2 27, BUN 34, creatinine 1.4, lactic acid 1.7, total bilirubin 0.4, AST 20, ALT 11, alk phos 58, albumin 2.8, TSH 2.65, UA positive, urine culture preliminary
gram-negative bacilli. Patient was started on ceftriaxone for UTI.
MRI with MRCP, 08/15/2023: Gallbladder mildly distended at 4.4 cm with a small amount of wall thickening and/or periCholecystic edema, mild to moderate intrahepatic ductal dilatation, common hepatic duct is 13 mm, common bile duct is 7.8 mm in the
inferior head of the pancreas, questionable 4 mm filling defect in the distal common bile duct, multiple cystic masses more prominent in the pancreatic tail. Pancreatic duct mildly dilated at 4 to 5 mm. Cystic mass in the head at 3.4 cm x 2.8 cm x
1.3 cm. There is also a small round mass in the right mid kidney measuring 2 cm x 1. 6 cm which is suspicious for small renal cell carcinoma.
EGD 08/16/23: (Dr. Fan)
- Normal esophagus.
- Granular gastric mucosa. Biopsied.
- Normal duodenal bulb, first portion of the duodenum
and second portion of the duodenum.
EUS 08/16/23: (Dr. Fan) - Multiple cystic lesions were seen in the pancreatic
body and pancreatic tail. The largest cystic lesion
was near the neck of pancreas measuring 18 x 19 mm.
- A cystic lesion was seen in the pancreatic head.
Fine needle aspiration for fluid performed.
- Main pancreatic duct (MPD) diameter was measured.
Endosonographically, the MPD had a dilated appearance.
- There was dilation in the common bile duct which
measured up to 9 mm.
- There was no sign of significant pathology in the
ampulla.
08/17/23 CT A/P:
IMPRESSION:
1. Gallbladder is distended, with gallbladder wall thickening and adjacent inflammatory change. No radiopaque gallstones are seen. Findings are suggestive of acute cholecystitis.
2. Mild extrahepatic and intrahepatic biliary ductal dilation.
3. Innumerable cystic lesions within the pancreas, unchanged compared to recent prior imaging.
4. Moderate fecal retention within the rectum. Fat stranding adjacent to the rectum. Findings are suggestive of stercoral colitis and/or fecal impaction.
5. Small bilateral pleural effusions, with associated bibasilar subsegmental atelectasis.
08/18/23 HIDA: IMPRESSION: Unremarkable HIDA scan with positive visualization of the gallbladder. No evidence for cystic duct obstruction.
Impression:
-LUQ pain
-weight loss
-Vomiting
-Anemia-> macrocytic
-Constipation
-GERD-> on Pantoprazole
-UTI-> UC prelim GNB
-MIKKI-> cannot have IV contrast at this time
-CLL-> baseline WBC count 20,000 per son.
-Afib on Eliquis, last dose prior to arrival
-Chronic pain-> Fentanyl patch, oxycodone
Recommendations:
-Await pathology of FNA/cytology from EUS pancreatic cyst
-CT results reviewed, but HIDA scan is unremarkable. She has no pain at this time and her LFTs are normal.
-General surgery is following
-Okay for low-fat diet today, and will evaluate for recurrence of pain
-Continue PPI
-Continue bowel regimen. Fecal burden seen on CT imaging but she reports she is moving her bowels.
-If no signs of bleeding okay to resume Eliquis likely tomorrow
-Small renal lesion noted concerning for possible malignancy on MRI imaging, defer evaluation to hospitalist
-Monitor hemoglobin and LFTs daily
-Will follow
Subjective
Subjective
Date of Service: August 18, 2023
The patient was seen and examined at the bedside. She reports that she is feeling hungry and would like to eat food. She denies any pain in her abdomen. Her WBC count is downtrending. Noted with a mild drop of her hemoglobin but no signs of
bleeding.
Objective
Data Reviewed
Laboratory Data:
Laboratory Results
08/17/23 06:22
08/18/23 06:24
Laboratory Results
Magnesium 2.2 mg/dl (1.6-2.3) 08/15/23 07:56
Total Bilirubin 0.4 mg/dl (0.2-1.3) 08/18/23 06:24
AST 21 U/L (14-36) 08/18/23 06:24
ALT 14 U/L (0-35) 08/18/23 06:24
Alkaline Phosphatase 50 U/L (38-126) 08/18/23 06:24
Lipase 39 U/L (23-300) 08/12/23 15:08
Vital Signs and I&O:
Vital Signs
Temp Pulse Resp BP Pulse Ox
98.0 F 68 16 137/55 97
08/18/23 15:00 08/18/23 15:00 08/18/23 15:00 08/18/23 15:00 08/18/23 15:00
I&O
08/17/23 08/18/23 08/19/23
06:59 06:59 06:59
Intake Total 1320 / 1320 1200 / 1200
Output Total 410 / 410
Balance 910 / 910 1200 / 1200
[2023-08-18 16:36] LABS: Glucose - Point of Care 167 mg/dl (70-99)
--- NOTE | 2023-08-18 16:43 | W.PN.UPDATE ---
Update Note
Progress Note Update
HIDA reviewed, gb vis notes, negative for cystic duct obstruction. No further surgicla mgmt planned at this time. Pls call with ?s
[2023-08-18] MEDS: NOVOLOG FLEXPEN-LOW RESISTANCE 1 UNITS SC (16:46)
[2023-08-18] MEDS: REQUIP 4 MG PO (18:16)
[2023-08-18] MEDS: LIPITOR 40 MG PO (18:17)
[2023-08-18 21:35] LABS: Glucose - Point of Care 219 mg/dl (70-99)
[2023-08-18] MEDS: DULCOLAX 10 MG PO (22:02)
[2023-08-18] MEDS: MIRALAX 17 GRAMS PO (22:03)
[2023-08-18] MEDS: DESENEX/MITRAZOL/ZEASORB 1 APPLIC TOPICAL (22:04)
[2023-08-18 23:04] VITALS: BP 155/66
[2023-08-19] MEDS: ZOSYN 50 IV ×2 (00:46→05:20)
[2023-08-19] MEDS: SYNTHROID 50 MCG PO (05:21)
[2023-08-19 07:49] VITALS: BP 129/58
[2023-08-19 07:50] LABS: ALT (SGPT) 13 U/L (0-35); AST (SGOT) 20 U/L (14-36); Albumin 2.2 g/dl (3.5-5.0); Alkaline Phosphatase 55 U/L (38-126); Blood Urea Nitrogen 11 mg/dl (7-17); Calcium 8.6 mg/dl (8.4-10.2); Carbon Dioxide 25 mmol/L (22-30); Chloride 105 mmol/L (98-107); Estimated Creatinine Clearance 35 ml/min; Glucose 118 mg/dl (70-99); Sodium 135 mmol/L (135-145); Total Bilirubin 0.5 mg/dl (0.2-1.3); Total Protein 4.6 g/dl (6.3-8.2); eGFR > 60.00
[2023-08-19 08:01] LABS: % Basophils 0.3 % (0-2); % Eosinophils 0.5 % (0-6); % Immature Granulocytes 0.1 % (0-0.5); % Lymphocytes 88.3 % (20.5-51.1); % Monocytes 1.2 % (1.7-9.3); % Neutrophils 9.6 % (42.2-75.2); Absolute Basophils 0.1 10^3/uL (0-0.2); Absolute Eosinophils 0.2 10^3/uL (0-0.7); Absolute Immature Granulocytes 0.1 10^3/uL (0-0.05); Absolute Lymphocytes 31.2 10^3/uL (1.2-3.4); Absolute Monocytes 0.4 10^3/uL (0.1-0.6); Absolute Neutrophils 3.4 10^3/uL (1.4-6.5); Hematocrit 31.8 % (37.0-47.0); Hemoglobin 10.1 g/dL (12.0-16.0); Mean Corp Hgb Conc. 31.8 g/dL (33.0-37.0); Mean Corpuscular Hgb 32.2 pg (27.0-31.0); Mean Corpuscular Volume 101.3 fL (81.0-99.0); Mean Platelet Volume 10.8 fL (7.4-10.4); Nucleated Red Blood Cells % 0 %; Platelet Count 169 10^3/uL (130-400); Red Blood Cell Count 3.14 10^6/uL (4.20-5.40); Red Cell Dist. Width 14.5 % (11.5-14.5); White Blood Cell Count 35.3 10^3/uL (4.8-10.8)
[2023-08-19] MEDS: NOVOLOG FLEXPEN-LOW RESISTANCE SC ×2 (08:10→11:30)
--- NOTE | 2023-08-19 08:11 | PN.CDI ---
CDI
- -
CDI:
Physician Documentation Request
Admit Date: 08/15/23 12:52
Dear Doctor Angel,
Clinical Indicators:
Patient admitted with abdominal pain.
08/17[facility] RN skin/wound assessment: Right Buttock Pressure Injury, Stage 2; suspect POA
Treatment: silicone border foam dressing
Physician documentation of the type and location of wounds is required for compliant documentation. Based on the above clinical findings and your assessment, please provide the following in your progress note:
1. Location of the ulcer/wound, including laterality.
2. Type (etiology) of ulcer/wound:
- Pressure (decubitus) ulcer
- Other, please specify
3. If a pressure ulcer, please also include the stage* of the ulcer:
- Stage 1 - Skin intact, non-blanchable redness
- Stage 2 - Partial thickness loss of dermis, includes intact or open blister
- Stage 3 - Full thickness tissue not including bone, tendon or muscle
- Stage 4 - Full thickness tissue loss, including exposed bone, tendon or muscle
- Unstageable - Full thickness loss in which the base of the ulcer is covered by slough (yellow, toribio, melgar, green or brown) and/or eschar (toribio, brown or black) in the wound bed.
- Unable to determine
Use of terms such as suspected, likely, concern for, or probable (associated with a specific diagnosis that is being evaluated, monitored, or treated as if it exists) are acceptable and can be coded in the inpatient setting, when documented at the
time of discharge.
Thank you,
ABRIL Hopper RN
CDI Specialist
available via tiger text
Please use your independent medical judgment in providing your response.
*Source: National Pressure Ulcer Advisory Panel (NPUAP)
[2023-08-19 08:22] LABS: Glucose - Point of Care 133 mg/dl (70-99)
[2023-08-19] MEDS: CELEXA 10 MG PO (08:55)
[2023-08-19] MEDS: TOPROL XL 75 MG PO (08:55)
[2023-08-19] MEDS: MIRALAX PO (08:55)
[2023-08-19] MEDS: CARDIZEM CD 240 MG PO (08:55)
[2023-08-19] MEDS: SENOKOT-S PO (08:55)
[2023-08-19] MEDS: FEOSOL 325 MG PO (08:55)
[2023-08-19] MEDS: DESENEX/MITRAZOL/ZEASORB 1 APPLIC TOPICAL ×2 (08:56→19:50)
[2023-08-19] MEDS: HEPARIN 5000 UNITS SC (08:56)
[2023-08-19] MEDS: ROXICODONE 10 MG PO ×2 (08:56→18:21)
[2023-08-19] MEDS: PROTONIX 40 MG PO (08:56)
--- NOTE | 2023-08-19 09:04 | CM ---
Reviewed chart, patient not medically stable for discharge. Bed available at [facility] upon medical clearance.
Plan: Case management will continue to follow and assist with discharge planning. [facility] when medically cleared.
--- NOTE | 2023-08-19 11:31 | W.PN.HOSP.TC ---
Today's Communication/Plan
-
monitor for p.o. intolerance. GI recs. Restart Eliquis. Start disposition efforts
Assessment / Plan
Assessment / Plan
Gen-AAOx3, NAD, hard of hearing.
HEENT-NC, AT, anicteric, clear oral mm
Neck-supple
CV-reg, no M, +S1/S2
Lungs-clear B/L
Abd-soft, non distended, non tender
Ext-no edema
Musculoskeletal-no cyanosis, clubbing
Skin-warm and dry
Neuro-grossly non-focal
Psych-calm, cooperative
Abdominal pain -for at least the past month. Associated with worsening while eating, 15 pound weight loss over the past 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 Abdominal MRI completed.
Questionable CBD stone. Pancreatic IPMN noted. Status post EGD and EUS status post pancreatic cyst biopsy. CT abdomen pelvis with distended gallbladder and stercoral colitis/fecal impaction. HIDA scan negative. MiraLAX twice daily. Bowel
regimen adjusted per GI. Needs aggressive bowel regimen on dc as on opiates. DC further abx.
Dysphagia -patient now denies.
Acute kidney injury -likely due to decreased oral intake with volume depletion. Renal function improving with IV fluids. Furosemide on hold. May need to either reduce dose or stop it on dc.
Asymptomatic pyuria -on antibiotics empirically for possible UTI. Urine culture shows greater than 100,000 Klebsiella species. Completed course of antibiotics.
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 Most of her leukocytosis is likely related to this.
Right renal lesion-known per patient son. CT abdomen pelvis with IV/po contrast-No aggressive renal mass noted. Also recommend to see outpatient urology/oncology to son.
Chronic pain syndrome/chronic opiate dependence
Opiate induced constipation -continue bowel regimen.
Essential hypertension -stable.
Chronic urinary incontinence
Atrial fibrillation -unknown type. restart eliquis.
Hyperlipidemia -atorvastatin.
Osteoporosis
DM2 without hyperglycemia - metformin on hold. Glucose 133 this morning. Hemoglobin A1c 6.7%.
RLS
Hypothyroidism -levothyroxine. TSH normal.
Anxiety/depression
Chronic hearing loss
Hypomag-replete/monitor
DNR
Updated patient's son over the phone in detail.
Dispo-monitor for p.o. intolerance. GI recs. Restart Eliquis. Start disposition efforts
Anticipated Discharge: Within 24 hours
Subjective/Interval History
-
Date of Service: August 19, 2023
denies abd pain or nausea or vomiting
having bm
Objective Data
-
Labs:
Laboratory Results
08/19/23
07:03
WBC 35.3 H
Hgb 10.1 L
Hct 31.8 L
Plt Count 169
Sodium 135
Potassium 4.0
Chloride 105
Carbon Dioxide 25
BUN 11
Creatinine 0.9
Glucose 118 H
Calcium 8.6
Total Bilirubin 0.5
AST 20
ALT 13
Alkaline Phosphatase 55
Vital Signs:
Vital Signs
Temp Pulse Resp BP Pulse Ox
98.4 F 69 16 129/58 98
08/19/23 07:49 08/19/23 08:55 08/19/23 07:49 08/19/23 08:55 08/19/23 07:49
I&O
08/18/23 08/19/23 08/20/23
06:59 06:59 06:59
Intake Total 1200 / 1200 660 / 660
Balance 1200 / 1200 660 / 660
Data Reviewed
-
Total Time Spent with Patient (in minutes): 55
[2023-08-19 15:37] VITALS: BP 148/58
[2023-08-19 16:31] LABS: Glucose - Point of Care 206 mg/dl (70-99)
--- NOTE | 2023-08-19 18:00 | W.PN.GI.CBS2 ---
Today's Communication / Plan
-
-Await pathology of FNA/cytology from EUS pancreatic cyst
-No further abdominal pain, CT results reviewed, HIDA scan is unremarkable. LFTs are normal.
Tolerating low-fat diet.
Ultimately abdominal pain could be related to constipation which is now better on laxatives.
-Continue Senokot 2 tablets a day and MiraLAX 1 capful daily.
If she has diarrhea, can stop the MiraLAX and just take the Senokot 2 tablets a day.
-Continue PPI
Currently on Eliquis without any drop in hemoglobin.
-Monitor hemoglobin and LFTs daily
Will sign off but will follow-up on the pathology from FNA.
Assessment / Plan
-
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 Fernandez in the past with baseline white count around 20,000, GERD, atrial fibrillation on Eliquis, hypertension,
hyperlipidemia, diabetes, hypothyroidism, RLS, prior DVT, hearing loss with need of iPad for communication, lower extremity edema, osteoporosis, chronic pain syndrome chronic urinary incontinence and anemia who presents to the emergency room from
[facility] with left upper quadrant abdominal discomfort, weight loss of 10 pounds over the past month (she states 40 pounds over months), vomiting after eating and dyspepsia. WBC 39.6 (down from 54.9�baseline around 20,000), hemoglobin 10.0,
MCV 99.7, MCH 32.3, platelets 171, sodium 139, potassium 3.6, chloride 104, CO2 27, BUN 34, creatinine 1.4, lactic acid 1.7, total bilirubin 0.4, AST 20, ALT 11, alk phos 58, albumin 2.8, TSH 2.65, UA positive, urine culture preliminary
gram-negative bacilli. Patient was started on ceftriaxone for UTI.
MRI with MRCP, 08/15/2023: Gallbladder mildly distended at 4.4 cm with a small amount of wall thickening and/or periCholecystic edema, mild to moderate intrahepatic ductal dilatation, common hepatic duct is 13 mm, common bile duct is 7.8 mm in the
inferior head of the pancreas, questionable 4 mm filling defect in the distal common bile duct, multiple cystic masses more prominent in the pancreatic tail. Pancreatic duct mildly dilated at 4 to 5 mm. Cystic mass in the head at 3.4 cm x 2.8 cm x
1.3 cm. There is also a small round mass in the right mid kidney measuring 2 cm x 1. 6 cm which is suspicious for small renal cell carcinoma.
EGD 08/16/23: (Dr. Fan)
- Normal esophagus.
- Granular gastric mucosa. Biopsied.
- Normal duodenal bulb, first portion of the duodenum
and second portion of the duodenum.
EUS 08/16/23: (Dr. Fan) - Multiple cystic lesions were seen in the pancreatic
body and pancreatic tail. The largest cystic lesion
was near the neck of pancreas measuring 18 x 19 mm.
- A cystic lesion was seen in the pancreatic head.
Fine needle aspiration for fluid performed.
- Main pancreatic duct (MPD) diameter was measured.
Endosonographically, the MPD had a dilated appearance.
- There was dilation in the common bile duct which
measured up to 9 mm.
- There was no sign of significant pathology in the
ampulla.
08/17/23 CT A/P:
IMPRESSION:
1. Gallbladder is distended, with gallbladder wall thickening and adjacent inflammatory change. No radiopaque gallstones are seen. Findings are suggestive of acute cholecystitis.
2. Mild extrahepatic and intrahepatic biliary ductal dilation.
3. Innumerable cystic lesions within the pancreas, unchanged compared to recent prior imaging.
4. Moderate fecal retention within the rectum. Fat stranding adjacent to the rectum. Findings are suggestive of stercoral colitis and/or fecal impaction.
5. Small bilateral pleural effusions, with associated bibasilar subsegmental atelectasis.
08/18/23 HIDA: IMPRESSION: Unremarkable HIDA scan with positive visualization of the gallbladder. No evidence for cystic duct obstruction.
Impression:
-LUQ pain
-weight loss
-Vomiting
-Anemia-> macrocytic
-Constipation
-GERD-> on Pantoprazole
-UTI-> UC prelim GNB
-MIKKI-> cannot have IV contrast at this time
-CLL-> baseline WBC count 20,000 per son.
-Afib on Eliquis, last dose prior to arrival
-Chronic pain-> Fentanyl patch, oxycodone
Recommendations:
-Await pathology of FNA/cytology from EUS pancreatic cyst
-No further abdominal pain, CT results reviewed, HIDA scan is unremarkable. LFTs are normal.
Tolerating low-fat diet.
Ultimately abdominal pain could be related to constipation which is now better on laxatives.
-Continue Senokot 2 tablets a day and MiraLAX 1 capful daily.
If she has diarrhea, can stop the MiraLAX and just take the Senokot 2 tablets a day.
-Continue PPI
Currently on Eliquis without any drop in hemoglobin.
-Monitor hemoglobin and LFTs daily
Will sign off but will follow-up on the pathology from FNA.
Subjective
Subjective
Date of Service: August 19, 2023
Patient denies any abdominal pain, nausea or vomiting. Able to tolerate diet. Had 1 large loose bowel movement today.
Objective
Data Reviewed
Laboratory Data:
Laboratory Results
08/19/23 07:03
08/19/23 07:03
Laboratory Results
Magnesium 2.2 mg/dl (1.6-2.3) 08/15/23 07:56
Total Bilirubin 0.5 mg/dl (0.2-1.3) 08/19/23 07:03
AST 20 U/L (14-36) 08/19/23 07:03
ALT 13 U/L (0-35) 08/19/23 07:03
Alkaline Phosphatase 55 U/L (38-126) 08/19/23 07:03
Lipase 39 U/L (23-300) 08/12/23 15:08
Vital Signs and I&O:
Vital Signs
Temp Pulse Resp BP Pulse Ox
97.8 F 65 16 148/58 98
08/19/23 15:37 08/19/23 15:37 08/19/23 15:37 08/19/23 15:37 08/19/23 15:37
I&O
08/18/23 08/19/23 08/20/23
06:59 06:59 06:59
Intake Total 1200 / 1200 660 / 660
Balance 1200 / 1200 660 / 660
Physical Exam
Physical Exam
GI: Soft, Non Distended and Non Tender
[2023-08-19] MEDS: LIPITOR 40 MG PO (18:21)
[2023-08-19] MEDS: NOVOLOG FLEXPEN-LOW RESISTANCE 2 UNITS SC (18:21)
[2023-08-19] MEDS: REQUIP 4 MG PO (18:21)
[2023-08-19] MEDS: ELIQUIS 2.5 MG PO (19:50)
[2023-08-19] MEDS: DULCOLAX 10 MG PO (21:09)
[2023-08-19 21:49] LABS: Glucose - Point of Care 160 mg/dl (70-99)
[2023-08-19 23:00] VITALS: BP 154/74
[2023-08-20] MEDS: SYNTHROID 50 MCG PO (05:56)
[2023-08-20 06:40] LABS: % Basophils 0.3 % (0-2); % Eosinophils 0.4 % (0-6); % Immature Granulocytes 0.2 % (0-0.5); % Lymphocytes 89.6 % (20.5-51.1); % Monocytes 0.9 % (1.7-9.3); % Neutrophils 8.6 % (42.2-75.2); Absolute Basophils 0.1 10^3/uL (0-0.2); Absolute Eosinophils 0.2 10^3/uL (0-0.7); Absolute Immature Granulocytes 0.1 10^3/uL (0-0.05); Absolute Lymphocytes 37.5 10^3/uL (1.2-3.4); Absolute Monocytes 0.4 10^3/uL (0.1-0.6); Absolute Neutrophils 3.6 10^3/uL (1.4-6.5); Hematocrit 34.5 % (37.0-47.0); Mean Corp Hgb Conc. 31.9 g/dL (33.0-37.0); Mean Corpuscular Volume 100.3 fL (81.0-99.0); Mean Platelet Volume 10.2 fL (7.4-10.4); Nucleated Red Blood Cells % 0.8 %; Platelet Count 177 10^3/uL (130-400); Red Blood Cell Count 3.44 10^6/uL (4.20-5.40); Red Cell Dist. Width 14.4 % (11.5-14.5)
[2023-08-20 06:45] LABS: White Blood Cell Count 41.9 10^3/uL (4.8-10.8)
[2023-08-20 07:53] VITALS: BP 146/60
[2023-08-20 07:59] LABS: Glucose - Point of Care 125 mg/dl (70-99)
[2023-08-20] MEDS: CARDIZEM CD 240 MG PO (08:43)
[2023-08-20] MEDS: MIRALAX 17 GRAMS PO (08:43)
[2023-08-20] MEDS: PROTONIX 40 MG PO (08:43)
[2023-08-20] MEDS: ELIQUIS 2.5 MG PO (08:43)
[2023-08-20] MEDS: SENOKOT-S 2 TABLET PO (08:43)
[2023-08-20] MEDS: TOPROL XL 75 MG PO (08:43)
[2023-08-20] MEDS: ROXICODONE 10 MG PO (08:43)
[2023-08-20] MEDS: FEOSOL 325 MG PO (08:43)
[2023-08-20] MEDS: CELEXA 10 MG PO (08:43)
[2023-08-20] MEDS: NOVOLOG FLEXPEN-LOW RESISTANCE SC ×3 (08:44→16:44)
[2023-08-20] MEDS: DESENEX/MITRAZOL/ZEASORB 1 APPLIC TOPICAL (08:48)
--- NOTE | 2023-08-20 11:25 | W.PN.HOSP.TC ---
Today's Communication/Plan
-
start dispo
monitor po intake
reduce lasix dose
Assessment / Plan
Assessment / Plan
Gen-AAOx3, NAD, hard of hearing.
HEENT-NC, AT, anicteric, clear oral mm
Neck-supple
CV-reg, no M, +S1/S2
Lungs-clear B/L
Abd-soft, non distended, non tender
Ext-no edema
Musculoskeletal-no cyanosis, clubbing
Skin-warm and dry
Neuro-grossly non-focal
Psych-calm, cooperative
Abdominal pain -for at least the past month. Associated with worsening while eating, 15 pound weight loss over the past 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 Abdominal MRI completed.
Questionable CBD stone. Pancreatic IPMN noted. Status post EGD and EUS status post pancreatic cyst biopsy. CT abdomen pelvis with distended gallbladder and stercoral colitis/fecal impaction. HIDA scan negative. MiraLAX twice daily. Bowel
regimen adjusted per GI. Needs aggressive bowel regimen on dc as on opiates. DC further abx.
Dysphagia -tolerating diet
Acute kidney injury -likely due to decreased oral intake with volume depletion. Renal function improving with IV fluids. Furosemide on hold. May need to either reduce dose as with weight loss and appetite slowly improving.
Asymptomatic pyuria -on antibiotics empirically for possible UTI. Urine culture shows greater than 100,000 Klebsiella species. Completed course of antibiotics.
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 Most of her leukocytosis is likely related to this.
Right renal lesion-known per patient son. CT abdomen pelvis with IV/po contrast-No aggressive renal mass noted. Also recommend to see outpatient urology/oncology to son.
Chronic pain syndrome/chronic opiate dependence
Opiate induced constipation -continue bowel regimen.
Essential hypertension -stable.
Chronic urinary incontinence
Atrial fibrillation -unknown type. Eliquis and cardizem continued
Hyperlipidemia -atorvastatin.
Osteoporosis
DM2 without hyperglycemia - metformin on hold. Glucose 125 this morning. Hemoglobin A1c 6.7%.
RLS
Hypothyroidism -levothyroxine. TSH normal.
Anxiety/depression
Chronic hearing loss
Hypomag-replete/monitor
R buttocks pressure injury stage II-POA
wound care
Moderate protein caloric malnutrition acute illness
DNR
Updated patient's son over the phone in detail on 08/18.
PT/OT-SNF. CM aware
Dispo-Start disposition efforts
Anticipated Discharge: Today
Subjective/Interval History
-
Date of Service: August 20, 2023
Denies abd pain or nausea or vomiting
tolerating diet
Objective Data
-
Labs:
Laboratory Results
08/20/23 08/20/23
06:10 10:48
WBC 41.9 H*
Hgb 11.0 L
Hct 34.5 L
Plt Count 177
Sodium Cancelled Pending
Potassium Cancelled Pending
Chloride Cancelled Pending
Carbon Dioxide Cancelled Pending
BUN Cancelled Pending
Creatinine Cancelled Pending
Glucose Cancelled Pending
Calcium Cancelled Pending
Total Bilirubin Cancelled Pending
AST Cancelled Pending
ALT Cancelled Pending
Alkaline Phosphatase Cancelled Pending
Vital Signs:
Vital Signs
Temp Pulse Resp BP Pulse Ox
97.4 F 76 16 146/60 96
08/20/23 07:53 08/20/23 07:53 08/20/23 07:53 08/20/23 07:53 08/20/23 07:53
I&O
08/19/23 08/20/23 08/21/23
06:59 06:59 06:59
Intake Total 660 / 660 840 / 840
Balance 660 / 660 840 / 840
--- NOTE | 2023-08-20 11:29 | W.DCSUMMARY ---
Discharge Summary
Discharge Data
Date of Admission: 08/15/23
Date of Discharge: 08/20/23
-
Pending Results: No
Hospital Course
88-year-old female past medical history of CLL, chronic opiate dependent, chronic pain syndrome, opioid and constipation, hypertension, chronic urinary incontinence, A-fib, hyperlipidemia, osteoporosis, diabetes mellitus, restless leg syndrome,
hypothyroidism and anxiety, depression, chronic hearing loss is presented with abdominal pain which has been ongoing for at least 1 month prior to arrival. Patient also stating a 15 pound weight loss prior to arrival. Patient initially underwent
CT without contrast which shows choledochal cyst. MRCP was performed which showed questionable CBD stones. GI was consulted. Patient underwent EGD and EUS status post pancreatic cyst biopsy. No choledocholithiasis was found. Repeat CT abdomen
with concern for distended gallbladder and cholecystitis. However patient with no right upper quadrant abdominal pain. General surgery was consulted and patient underwent HIDA scan. HIDA scan was found to be negative. On the repeat CAT scan with
contrast that showed patient has severe stercoral colitis/fecal impaction. Patient was started on aggressive bowel regimen. Patient started having bowel movements regularly. Patient abdominal pain resolved. Patient was tolerating diet. Patient
also had asymptomatic pyuria and finished course of antibiotics. Patient also had MIKKI which resolved with IV fluid. Lasix dose on discharge was decreased to 20 mg. Patient was eval by PT and OT and be discharged to SNF.
Discharge Plan
-
Patient Disposition: [facility]/SNF
Discharge Diagnosis/Procedures: Abdomen Pain likely secondary stercoral colitis/fecal impaction
Acute kidney injury
Asymptomatic pyuria
Condition: Fair
Diet: Regular
Activity: With assistance and As tolerated
Activity Restrictions/Additional Instructions:
Wound Care Instructions
R sacral/buttocks ulcer-clean with saline, apply silicone border foam, change every 3 days and as needed for loosened dressing.
Sacrum-protective silicone border foam, change every 3 days and as as needed for loosened dressing.
Miconazole powder to shine/groin bid.
Air mattress
Elevate heels off bed with pillows.
Pressure redistributing chair cushion (i.e. Air chair cushion).
Follow up with wound managed care specialist or at wound care center if needed, call for an appointment.
-Continue Senokot 2 tablets a day and MiraLAX 1 capful daily.
If she has diarrhea, can stop the MiraLAX and just take the Senokot 2 tablets a day.
Referrals:
Lico Andrews DO [Family Provider] - in less than 1 week
Pedro Pablo Fan MD [Active] - 09/29/23 1:00 am
Prescriptions:
New
polyethylene glycol 3350 [HealthyLax] 17 gram Powder In Packet
17 g PO DAILY Qty: 30 0RF
Rx Instructions:
Hold for diarrhea
Continued
atorvastatin 40 mg tablet
40 mg PO QPM
metformin 500 mg tablet
500 mg PO BID@0830,1830
acetaminophen 325 mg Tablet
650 mg PO Q4H PRN (Reason: mild pain/fever>100.4)
citalopram 10 mg tablet
10 mg PO DAILY
alendronate 70 mg tablet
70 mg PO WE
sennosides-docusate sodium [Senna-S] 8.6-50 mg Tablet
2 tab-cap PO DAILY
diltiazem HCl 240 mg capsule,extended release 24 hr
240 mg PO DAILY
magnesium hydroxide [Milk of Magnesia] 400 mg/5 mL Suspension
30 ml PO HS PRN (Reason: constipation)
levothyroxine 50 mcg tablet
50 mcg PO DAILY@0630
bisacodyl [Dulcolax (bisacodyl)] 10 mg Suppository
10 mg [place] DAILY PRN (Reason: if mom is ineffective)
pantoprazole 40 mg tablet,delayed release (DR/EC)
40 mg PO DAILY
ferrous sulfate 325 mg (65 mg iron) Tablet
325 mg PO DAILY
calcium carbonate 500 mg calcium (1,250 mg) Tablet,Chewable
500 mg PO Q8H PRN (Reason: indigestion)
metoprolol succinate 25 mg tablet extended release 24 hr
75 mg PO DAILY
ropinirole 4 mg tablet
4 mg PO QPM
Eliquis 2.5 mg tablet
2.5 mg PO BID@
naloxone [Narcan] 4 mg/actuation [place],Non-Aerosol
4 mg INTRANASAL PRN PRN (Reason: opioid overdose)
fentanyl 25 mcg/hr Patch 72 Hour
1 patch TRANSDERMAL Q72H Qty: 1 0RF
oxycodone 10 mg Tablet
10 mg PO BID@ Qty: 4 0RF
Changed
furosemide 20 mg Tablet
20 mg PO DAILY Qty: 0 0RF
Discharge Orders:
Discharge Patient (As Directed); Ordered 08/20/23
Ordered By: Tyler Stark
Discharge Date and Time
Print Language: ANGOLAN
[2023-08-20 11:30] LABS: ALT (SGPT) 16 U/L (0-35); AST (SGOT) 25 U/L (14-36); Albumin 2.3 g/dl (3.5-5.0); Alkaline Phosphatase 52 U/L (38-126); Blood Urea Nitrogen 10 mg/dl (7-17); Calcium 8.6 mg/dl (8.4-10.2); Carbon Dioxide 25 mmol/L (22-30); Chloride 106 mmol/L (98-107); Estimated Creatinine Clearance 35 ml/min; Glucose 153 mg/dl (70-99); Potassium 4.1 mmol/L (3.5-5.1); Sodium 135 mmol/L (135-145); Total Bilirubin 0.4 mg/dl (0.2-1.3); Total Protein 4.8 g/dl (6.3-8.2); eGFR > 60.00
[2023-08-20 12:23] LABS: Glucose - Point of Care 140 mg/dl (70-99)
--- NOTE | 2023-08-20 12:24 | CM ---
Received notification from attending that patient is medically stable for discharge. Spoke with Ruth in admissions at [facility] who confirmed acceptance back. #For report [phone] and fax# [phone]. Updated [facility] community services coordinator. Will complete
Medical Necessity, transfer sheet and have patient sign IMM.
Plan: Case management will continue to follow and assist with discharge planning/back to [place].
[2023-08-20 15:50] VITALS: BP 139/61
[2023-08-20 16:41] LABS: Glucose - Point of Care 123 mg/dl (70-99)
== END 2023-08-20 17:28 | DRG 389 ==
LOC: 3 WEST ACU 12:52
PROVIDERS: Hospitalist; Internal Medicine; Internal Medicine Gastroenterology; ADMITTING PHYSICIAN Hospitalist; ATTENDING PHYSICIAN Hospitalist; CONSULT PHYSICIAN Surgery; EMERGENCY PHYSICIAN Emergency Medicine; FAMILY PHYSICIAN Student in an Organized Health Care Education/Training Program; OTHER PHYSICIAN Internal Medicine
PROC: 0DB48ZX Excision of Esophagogastric Junction, Via Natural or Artificial Opening Endoscopic, Diagnostic (ICD-10-PCS; 2023-08-16)
PROC: 0F9G8ZX Drainage of Pancreas, Via Natural or Artificial Opening Endoscopic, Diagnostic (ICD-10-PCS; 2023-08-16)
PROC: 0DB68ZX Excision of Stomach, Via Natural or Artificial Opening Endoscopic, Diagnostic (ICD-10-PCS; 2023-08-16)
PROC: BF4CZZZ Ultrasonography of Hepatobiliary System, All (ICD-10-PCS; 2023-08-16)
DX: K56.41 Fecal impaction (principal); C91.10 Chronic lymphocytic leukemia of B-cell type not having achieved remission; K63.3 Ulcer of intestine; N39.0 Urinary tract infection, site not specified; N17.9 Acute kidney failure, unspecified; F11.20 Opioid dependence, uncomplicated; K86.2 Cyst of pancreas; Q44.4 Choledochal cyst; E44.0 Moderate protein-calorie malnutrition; Z68.1 Body mass index [BMI] 19.9 or less, adult; K52.89 Other specified noninfective gastroenteritis and colitis; K21.9 Gastro-esophageal reflux disease without esophagitis; Z66 Do not resuscitate; R13.10 Dysphagia, unspecified; T40.2X1A Poisoning by other opioids, accidental (unintentional), initial encounter; R32 Unspecified urinary incontinence; R60.0 Localized edema; D64.9 Anemia, unspecified; M81.0 Age-related osteoporosis without current pathological fracture; F32.A Depression, unspecified; F41.9 Anxiety disorder, unspecified; I48.91 Unspecified atrial fibrillation; I10 Essential (primary) hypertension; E78.00 Pure hypercholesterolemia, unspecified; E11.36 Type 2 diabetes mellitus with diabetic cataract; E03.9 Hypothyroidism, unspecified; G25.81 Restless legs syndrome; H91.93 Unspecified hearing loss, bilateral; G89.4 Chronic pain syndrome; Z79.83 Long term (current) use of bisphosphonates; Z79.84 Long term (current) use of oral hypoglycemic drugs; Z79.899 Other long term (current) drug therapy; Z79.01 Long term (current) use of anticoagulants; Z86.718 Personal history of other venous thrombosis and embolism; K83.8 Other specified diseases of biliary tract
CPT/HCPCS: 88173; 88305; 88312; 74176; 74177; 74183; 78226; 80048; 80053; 81003; 81015; 82248; 82607; 82728; 82746; 82962; 83036; 83605; 83690; 83735; 84443; 85025; 86706; 86708; 86803; 87040; 87070; 87077; 87086; 87186; 87340; 88342; 96374; 97162; 99285; A9537; A9575; Q9967

== ENCOUNTER 2023-10-14 15:35 | Emergency (ER) | payer OTHER, SELFPAY ==
[2023-10-14 15:37] VITALS: BP 121/47
[2023-10-14] MEDS: NSS 1000 IV (16:34)
[2023-10-14 17:01] LABS: Hematocrit 28.7 % (37.0-47.0); Hemoglobin 9.8 g/dL (12.0-16.0); Mean Corp Hgb Conc. 34.1 g/dL (33.0-37.0); Mean Corpuscular Hgb 33.1 pg (27.0-31.0); Mean Platelet Volume 10.4 fL (7.4-10.4); Platelet Count 149 10^3/uL (130-400); Red Blood Cell Count 2.96 10^6/uL (4.20-5.40); Red Cell Dist. Width 14.8 % (11.5-14.5); White Blood Cell Count 37.8 10^3/uL (4.8-10.8)
--- NOTE | 2023-10-14 17:11 | ED.GENMED ---
History of Present Illness
General
Chief Complaint: Abdominal Symptoms
Source: patient
Exam Limitations: none
Time Seen by Provider: 10/14/23 15:56
Nursing documentation reviewed up to this point in time: agreed with
History of Present Illness
History of Present Illness:
Patient to ED with complaint of n/v. Symptoms started yesterday. Denies fever/chills. Brought to ED via EMS.
Past History
Past History
ED Past Medical History: GERD, HTN, Hypercholesterolemia, NIDDM and Other (Chronic lymphocytic leukemia DVT. )
Social History
Tobacco: Non-smoker
Alcohol: None
Drug: None
Living: long term
Employment: Retired
Review of Systems
Review of Systems
Allergies reviewed?: Yes
All Other Systems: ROS reviewed and negative except as documented in HPI and ROS
Constitutional: Reports no symptoms
EENT: Reports no symptoms
Respiratory: Reports no symptoms
Cardiac: Reports no symptoms
ABD/GI: Reports nausea and diarrhea
: Reports no symptoms
Musculoskeletal: Reports no symptoms
Skin: Reports no symptoms
Neurological: Reports no symptoms
Psychiatric: Reports no symptoms
Phy Exam
General Physical Exam
General Presentation: well appearing and no apparent distress
General age: appears stated age
General Skin: warm and dry
General Habitus: normal
General Mental: alert
Cardiovascular Exam
Cardiovascular Exam: regular rate/rhythm and no edema
Pulmonary Exam
Pulmonary Exam: lungs clear and no respiratory distress
Gastrointestinal Exam
Gastrointestinal Exam: normal bowel sounds, soft, no organomegaly, non distended and no cva tenderness
Palpation: generalized: Mild tenderness
Musculoskeletal Exam
Musculoskeletal Exam: full ROM and neuro vasc intact
Skin Exam
Skin Exam: normal color, warm/dry and no rash
Psychiatric Exam
Psychiatric Exam: normal mood/affect
Course
Orders/Labs/Results
Orders:
Orders
10/14/23 15:51
IV Insert/Care/Rem.- Treatment PRN
Straight cath- Treatment ONCE
10/14/23 16:03
0.9% Sodium Chloride 1000 ml [Nss] 1,000 ml IV BOLUS
10/14/23 16:29
Complete Blood Count/With Diff Urgent
10/14/23 17:24
Comprehensive Metabolic Panel Urgent
Lipase Urgent
10/14/23 18:45
CT Abd/pel Without Iv Or Oral Urgent
Comment:
Reason For Exam: vomiting, abd. pain
Abnormal Lab Results
10/14/23 10/14/23
16:29 17:24
WBC 37.8 H 10^3/uL
(4.8-10.8)
RBC 2.96 L 10^6/uL
(4.20-5.40)
Hgb 9.8 L g/dL
(12.0-16.0)
Hct 28.7 L %
(37.0-47.0)
MCH 33.1 H pg
(27.0-31.0)
RDW 14.8 H %
(11.5-14.5)
Abs Immat Gran (auto) 0.1 H 10^3/uL
(0-0.05)
Absolute Lymphs (auto) 32.4 H 10^3/uL
(1.2-3.4)
Neutrophils % 12.6 L %
(42.2-75.2)
Lymphocytes % 85.5 H %
(20.5-51.1)
Monocytes % 1.1 L %
(1.7-9.3)
BUN 31 H mg/dl
(7-17)
Creatinine 1.4 H mg/dL
(0.6-1.0)
Glucose 108 H mg/dl
(70-99)
Calcium 8.2 L mg/dl
(8.4-10.2)
Total Protein 5.3 L g/dl
(6.3-8.2)
Albumin 2.9 L g/dl
(3.5-5.0)
10/14/23 16:29
10/14/23 17:24
Vital Signs
Initial and Last Documented VS:
Initial Vital Signs
Temp Pulse Resp BP Pulse Ox
98.0 F 57 16 121/47 96
10/14/23 15:37 10/14/23 15:37 10/14/23 15:37 10/14/23 15:37 10/14/23 15:37
Last Documented Vital Signs
Temp Pulse Resp BP Pulse Ox
97.9 F 70 18 133/45 100
10/14/23 18:31 10/14/23 22:01 10/14/23 18:31 10/14/23 22:01 10/14/23 22:01
*Radiology
Radiology exam reviewed: radiology read reviewed
*Pulse Oximetry
Patient hypoxic: no
*Critical Care Note
Total Time (30-74mins, 75-104mins- exclusive of procedures): Not Applicable
ED Attending Note
-
Portions of this chart may have been created with voice recognition software.� Occasional wrong word or��sound alike� substitutions may have occurred due to the inherent limitations of voice recognition software.
Discharge Plan
Departure
Patient Disposition: Home (Routine Discharge)
Date of Disposition: 10/14/23
Time of Disposition: 22:01
Patient with high blood pressure during this ER visit?: No
Condition: Good
Covid-19: Not Applicable
Discharge Problem:
Abdominal pain
Instructions: Abdominal Pain
Prescriptions:
No Action
atorvastatin 40 mg tablet
40 mg PO QPM
metformin 500 mg tablet
500 mg PO BID@0830,1830
acetaminophen 325 mg Tablet
650 mg PO Q4H PRN (Reason: mild pain/fever>100.4)
citalopram 10 mg tablet
10 mg PO DAILY
alendronate 70 mg tablet
70 mg PO WE
sennosides-docusate sodium [Senna-S] 8.6-50 mg Tablet
2 tab-cap PO DAILY
diltiazem HCl 240 mg capsule,extended release 24 hr
240 mg PO DAILY
magnesium hydroxide [Milk of Magnesia] 400 mg/5 mL Suspension
30 ml PO HS PRN (Reason: constipation)
levothyroxine 50 mcg tablet
50 mcg PO DAILY@629
bisacodyl [Dulcolax (bisacodyl)] 10 mg Suppository
10 mg [place] DAILY PRN (Reason: if mom is ineffective)
pantoprazole 40 mg tablet,delayed release (DR/EC)
40 mg PO DAILY
ferrous sulfate 325 mg (65 mg iron) Tablet
325 mg PO DAILY
calcium carbonate 500 mg calcium (1,250 mg) Tablet,Chewable
500 mg PO Q8H PRN (Reason: indigestion)
metoprolol succinate 25 mg tablet extended release 24 hr
75 mg PO DAILY
ropinirole 4 mg tablet
4 mg PO QPM
Eliquis 2.5 mg tablet
2.5 mg PO BID@
naloxone [Narcan] 4 mg/actuation [place],Non-Aerosol
4 mg INTRANASAL PRN PRN (Reason: opioid overdose)
polyethylene glycol 3350 [HealthyLax] 17 gram Powder In Packet
17 g PO DAILY Qty: 30 0RF
Rx Instructions:
Hold for diarrhea
furosemide 20 mg Tablet
20 mg PO DAILY Qty: 0 0RF
fentanyl 25 mcg/hr Patch 72 Hour
1 patch TRANSDERMAL Q72H Qty: 1 0RF
oxycodone 10 mg Tablet
10 mg PO BID@0830,1830 Qty: 4 0RF
Referrals:
Lico Andrews DO [Family Provider] - Follow up in 2-3 days
Interventions
Interventions:
*Risk Screen - Suicide Last Done: 10/14/23 15:37
*General Assessment Last Done: 10/14/23 15:37
*Neglect/Abuse Screening Last Done: 10/14/23 15:37
ED- Fall Risk Assessment Last Done: 10/14/23 23:11
*ED COVID-19 Vaccine History Last Done: 10/14/23 23:11
*Nursing Disposition Last Done: 10/14/23 23:11
UT-Dmbpjo-Dspqqpatdt Assessment Last Done: 10/14/23 21:05
Discharge Date and Time
Discharge Date/Time: 10/14/23 23:14
Print Language: JAPANESE
[2023-10-14 17:22] LABS: % Basophils 0.3 % (0-2); % Eosinophils 0.2 % (0-6); % Immature Granulocytes 0.3 % (0-0.5); % Lymphocytes 85.5 % (20.5-51.1); % Monocytes 1.1 % (1.7-9.3); % Neutrophils 12.6 % (42.2-75.2); Absolute Basophils 0.1 10^3/uL (0-0.2); Absolute Eosinophils 0.1 10^3/uL (0-0.7); Absolute Immature Granulocytes 0.1 10^3/uL (0-0.05); Absolute Lymphocytes 32.4 10^3/uL (1.2-3.4); Absolute Monocytes 0.4 10^3/uL (0.1-0.6); Absolute Neutrophils 4.8 10^3/uL (1.4-6.5); Nucleated Red Blood Cells % 0.2 %
[2023-10-14 17:54] LABS: ALT (SGPT) < 10 U/L (0-35); AST (SGOT) 22 U/L (14-36); Albumin 2.9 g/dl (3.5-5.0); Alkaline Phosphatase 49 U/L (38-126); Blood Urea Nitrogen 31 mg/dl (7-17); Calcium 8.2 mg/dl (8.4-10.2); Carbon Dioxide 23 mmol/L (22-30); Estimated Creatinine Clearance 23 ml/min; Glucose 108 mg/dl (70-99); Lipase 37 U/L (23-300); Total Bilirubin 0.5 mg/dl (0.2-1.3); Total Protein 5.3 g/dl (6.3-8.2); eGFR 36.19
[2023-10-14 18:08] LABS: Chloride 106 mmol/L (98-107); Potassium 4.4 mmol/L (3.5-5.1); Sodium 136 mmol/L (135-145)
[2023-10-14 18:31] VITALS: BP 127/55
[2023-10-14 22:01] VITALS: BP 133/45
== END 2023-10-14 23:14 | disposition home or self-care (01) ==
LOC: EMR 15:35
PROVIDERS: EMERGENCY PHYSICIAN Student in an Organized Health Care Education/Training Program; FAMILY PHYSICIAN Student in an Organized Health Care Education/Training Program
DX: R10.9 Unspecified abdominal pain (principal)
CPT/HCPCS: 99284; 96360; 74176; 80053; 83690; 85025

== ENCOUNTER 2023-12-09 14:27 | Inpatient (IN) | payer OTHER, SELFPAY ==
[2023-12-09] VITALS (10 sets, daily range): BP systolic 76–152; BP diastolic 38–59; BMI 18.3; BMI 18.1
[2023-12-09 10:13] LABS: Glucose - Point of Care 115 mg/dl (70-99)
--- NOTE | 2023-12-09 10:13 | ED.GENMED ---
History of Present Illness
<Vanita Owens PA-C - Last Filed: 12/09/23 17:21>
General
Chief Complaint: Change Level of Consciousness
Source: ambulance crew
Exam Limitations: clinical condition and altered mental status
Time Seen by Provider: 12/09/23 10:04
Nursing documentation reviewed up to this point in time: agreed with
History of Present Illness
History of Present Illness:
Patient is an 88-year-old female with history of CLL, type 2 diabetes, hypertension, hyperlipidemia, hypothyroid, history of DVT on Eliquis presenting to the emergency department from [facility] due to change in mental status. Patient unable
to contribute to history given mental status. Based on documentation by nursing facility � it appears patient's last known normal was around 9 AM after which patient seem to be less responsive than her baseline. No reported focal deficits patient
reportedly with decreasing p.o. intake over the past few days, not taking meds. Patient is DNR.
Past History
<Vanita Owens PA-C - Last Filed: 12/09/23 17:21>
Past History
ED Past Medical History: GERD, HTN, Hypercholesterolemia, NIDDM and Other (Chronic lymphocytic leukemia DVT. )
Social History
Tobacco: Non-smoker
Alcohol: None
Drug: None
Living: jail
Employment: Retired
Review of Systems
<Vanita Owens PA-C - Last Filed: 12/09/23 17:21>
Review of Systems
Allergies reviewed?: Yes
Unable to obtain full review of systems at this time due to: non-verbal
Other source history: ambulance crew
All Other Systems: ROS reviewed and negative except as documented in HPI and ROS
Phy Exam
<Vanita Owens PA-C - Last Filed: 12/09/23 17:21>
Physical Exam
Physical Exam:
Vitals: BP soft in 100s/50s, oxygen in the low 90s on nasal cannula.
General: Patient is chronically ill-appearing, cachectic.
Skin: Warm and dry, no rashes or lesions
Head: Normocephalic, atraumatic
Eyes: Sclera nonicteric. EOMs intact. No nystagmus.
Throat: Dry mucous membranes. Protecting airway
Neck: Normal ROM, no cervical spine tenderness, no meningismus
Cardiac: Regular rate and rhythm, no murmurs.
Pulm: Normal respiratory effort, no wheezes, rales, rhonchi heard on exam.
Abdomen: Abdomen soft. No abdominal tenderness.
Extremities: Bilateral lower extremity pitting edema.
Neuro: Alert. Moving all extremities. No focal neurologic deficits noted. No facial droop.
Psychiatric: Normal affect.
Course
<Vanita Owens PA-C - Last Filed: 12/09/23 17:21>
Orders/Labs/Results
Orders:
Orders
12/09/23 Breakfast
NPO
Allow oral meds: Yes
Allow clear liquids: No
NPO with Ice Chips: Yes
Comment: await S & S evalaute
12/09/23 10:16
CT Head W/o Iv Contrast Urgent
Comment:
Reason For Exam: AMS
12/09/23 10:17
Electrocardiogram (*1) Urgent
Reason for Study: Fatigue / Weakness
EKG- Treatment ONCE
12/09/23 10:21
CR Chest Portable - 1 View Urgent
Comment:
Reason For Exam: hypoxia, AMS
Reason Study Needs to be Portable: Patient Unstable
12/09/23 10:27
Complete Blood Count/With Diff Urgent
Comprehensive Metabolic Panel Urgent
Free T4 Urgent
TSH Reflex To Free T4 Urgent
12/09/23 10:54
ABG [Arterial Blood Gas] Urgent
%Oxygen/Room Air: 90
12/09/23 11:19
0.9% Sodium Chloride 1000 ml [Nss] 1,000 ml IV BOLUS
12/09/23 11:58
Urinalysis Reflex To Culture Urgent
Date Specimen was Collected: 12/09/23
Time Specimen was Collected: 11:57
Comment: straight cath bladder empty
Urine Microscopic Reflex Cult Urgent
Urine Culture Urgent
JOEL Source: U
Specimen Description:
Date Specimen was Collected: 12/09/23
Time Specimen was Collected: 11:57
12/09/23 12:42
Blood Culture Urgent
JOEL Source: Blood/Venous
Specimen Description:
Date Specimen was Collected: 12/09/23
Time Specimen was Collected: 12:41
12/09/23 13:03
Blood Culture Urgent
JOEL Source: Blood/Venous
Specimen Description:
12/09/23 13:25
Cefepime HCl [Maxipime] 1,000 mg IV NOW STA
Vancomycin 1 Gram/200 ml [Vancocin] 1 gram in 200 ml IV NOW
12/09/23 13:43
Sterile Water [Sterile Water For Injection] 10 ml .ROUTE [facility]
12/09/23 14:11
Admit/Transfer Patient As Directed
Co-Sign Provider:
Level of Care: Inpatient admission
Assign to:: Telemetry
Physician / Group: htay
Diagnosis: Presumed UTI Associated Acute kidney injury, PNA ,Mixed acidosis
Reason for Telemetry: Arrhythmia
Date to Stop Telemetry: 12/12/23
Time to Stop Telemetry: 11:00
Reason for Hospitalization: Presumed UTI plus likley PNA
Associated Acute kidney injury -likely due to decreased oral intake with volume
depletion.
Mixed acidosis with marginal Hyperkalemia
Uncompensated metabolic acidosis
Associated profound Hypocarbia
HX CLL
Expected length of stay greater than two midnights?: Yes
ELOS- Estimated Length of Stay in days: 5
I certify the patient meets the requirements for IP care: Yes
12/09/23 14:16
Code Status As Directed
Resuscitation Status: Do not resuscitate
Based on pt advanced directive or healthcare POA form: Yes
12/09/23 14:18
DNR Bracelet Application ONCE
12/09/23 15:19
FentaNYL 25 MCG/HR PATCH [Duragesic 25 Mcg/Hr Patch] 1 patch TRANSDERM Q72H
Lactated Ringers [Lr] 1,000 ml IV 80 mls/hr
REMOVE fentaNYL PATCH [Remove Duragesic Patch] See Dose Instructions REMOVE Q72H
Sterile Water For Inj [Sterile Water For Injection 1000 ml] 1,000 ml Sodium Chloride 38.5 meq Sodium Bicarbonate 100 meq IV 40 mls/hr
12/09/23 15:19
Activity As Directed
Activity Level: With Assistance
Fentanyl Patch Confirmation BID@0700,1900
Intake/ Output As Directed
Frequency: Per unit guidelines
Vital Signs As Directed
Frequency: Per unit guidelines
Speech Screening from Ap Routine
12/09/23 15:50
Lactic Acid Q4H
Comment: repeat q4 hours x 4 or until less than 2 mmol/L
12/09/23 16:00
Cefepime HCl [Maxipime] 1,000 mg IV Q8H
VANCOMYCIN Pharmacy to Dose [VANCOCIN Pharmacy to Dose] 1 each Pharmacy To Prepare [Call Pharmacy To Prepare] 0 ml IV PER PROTOCOL
12/09/23 18:00
Atorvastatin [Lipitor] 40 mg PO QPM
ropinirole 4 mg PO QPM
12/09/23 18:30
Apixaban [Eliquis] 2.5 mg PO BID@0830,1830
12/09/23 19:19
Lactic Acid Q4H
Comment: repeat q4 hours x 4 or until less than 2 mmol/L
12/09/23 20:00
Nystatin Suspension [Mycostatin Oral Suspension] DOSE units PO BID
12/09/23 23:19
Lactic Acid Q4H
Comment: repeat q4 hours x 4 or until less than 2 mmol/L
12/10/23 03:19
Lactic Acid Q4H
Comment: repeat q4 hours x 4 or until less than 2 mmol/L
12/10/23 06:00
Complete Blood Count/No Diff IN AM
Comprehensive Metabolic Panel IN AM
12/10/23 06:30
Levothyroxine [Synthroid] 50 mcg PO DAILY@0630
12/10/23 08:00
Diltiazem Extended Release [Cardizem Cd] 240 mg PO DAILY
Docusate W/Senna [Senokot-S] 2 tablet PO DAILY
Lidocaine Mpf 1% [Xylocaine-Mpf 1% Vial] DOSE ml S DAILY
Metoprolol Xl [Toprol Xl] 75 mg PO DAILY
Pantoprazole [Protonix IV] 40 mg IV DAILY
Pantoprazole [Protonix] 40 mg PO DAILY
12/12/23 11:00
DC Protocol for Telemetry ONCE
Abnormal Lab Results
12/09/23 12/09/23 12/09/23
10:12 10:27 10:54
WBC 106.5 H* 10^3/uL
(4.8-10.8)
RBC 3.34 L 10^6/uL
(4.20-5.40)
Hgb 10.6 L g/dL
(12.0-16.0)
Hct 34.1 L %
(37.0-47.0)
MCV 102.1 H fL
(81.0-99.0)
MCH 31.7 H pg
(27.0-31.0)
MCHC 31.1 L g/dL
(33.0-37.0)
RDW 17.5 H %
(11.5-14.5)
Abs Immat Gran (auto) 0.6 H 10^3/uL
(0-0.05)
Absolute Neuts (auto) 7.2 H 10^3/uL
(1.4-6.5)
Absolute Lymphs (auto) 98.3 H 10^3/uL
(1.2-3.4)
Immature Gran % 0.6 H %
(0-0.5)
Neutrophils % 6.7 L %
(42.2-75.2)
Lymphocytes % 92.3 H %
(20.5-51.1)
Monocytes % 0.3 L %
(1.7-9.3)
pH 7.26 L
(7.35-7.45)
pCO2 14 L* mmHg
(32-35)
pO2 140 H mmHg
(83-108)
HCO3 6.3 L* mmol/L
(21-28)
ABG O2 Sat (Measured) 99.4 H %
(94-98)
Carbon Dioxide < 5 L* mmol/L
(22-30)
BUN 93 H mg/dl
(7-17)
Creatinine 3.9 H mg/dL
(0.6-1.0)
Glucose 178 H mg/dl
(70-99)
Calcium 7.3 L mg/dl
(8.4-10.2)
AST 37 H U/L
(14-36)
Total Protein 5.3 L g/dl
(6.3-8.2)
Albumin 2.9 L g/dl
(3.5-5.0)
TSH (Reflex) 5.55 H uIU/ml
(0.47-4.68)
Urine Ketones
Ur Occult Blood Reflex
Urine Bilirubin
Leukocyte Esterase Rfl
Urine RBC
Urine WBC (Reflex)
Urine Bacteria (Reflex)
Urine Albumin (Reflex)
POC Glucose 115 H mg/dl
(70-99)
12/09/23
11:58
WBC
RBC
Hgb
Hct
MCV
MCH
MCHC
RDW
Abs Immat Gran (auto)
Absolute Neuts (auto)
Absolute Lymphs (auto)
Immature Gran %
Neutrophils %
Lymphocytes %
Monocytes %
pH
pCO2
pO2
HCO3
ABG O2 Sat (Measured)
Carbon Dioxide
BUN
Creatinine
Glucose
Calcium
AST
Total Protein
Albumin
TSH (Reflex)
Urine Ketones 1+ A
(Negative)
Ur Occult Blood Reflex 4+ A
(Negative)
Urine Bilirubin 1+ A
(Negative)
Leukocyte Esterase Rfl 2+ A
(Negative)
Urine RBC 7-10 A /HPF
(0-2)
Urine WBC (Reflex) 40-50 A /HPF
(0-5)
Urine Bacteria (Reflex) Few A
(Negative)
Urine Albumin (Reflex) 3+ A
(Neg - Trace)
POC Glucose
12/09/23 10:27
12/09/23 10:27
Vital Signs
Initial and Last Documented VS:
Initial Vital Signs
Pulse Resp
93 18
12/09/23 09:56 12/09/23 09:56
Last Documented Vital Signs
Temp Pulse Resp BP Pulse Ox
98.1 F 98 15 152/51 87
12/09/23 10:35 12/09/23 16:04 12/09/23 16:04 12/09/23 16:04 12/09/23 16:04
<Edgardo Rahman MD - Last Filed: 12/09/23 10:24>
Orders/Labs/Results
Orders:
Orders
12/09/23 Breakfast
NPO
Allow oral meds: Yes
Allow clear liquids: No
NPO with Ice Chips: Yes
Comment: await S & S evalaute
12/09/23 10:16
CT Head W/o Iv Contrast Urgent
Comment:
Reason For Exam: AMS
12/09/23 10:17
Electrocardiogram (*1) Urgent
Reason for Study: Fatigue / Weakness
EKG- Treatment ONCE
12/09/23 10:21
CR Chest Portable - 1 View Urgent
Comment:
Reason For Exam: hypoxia, AMS
Reason Study Needs to be Portable: Patient Unstable
12/09/23 10:27
Complete Blood Count/With Diff Urgent
Comprehensive Metabolic Panel Urgent
Free T4 Urgent
TSH Reflex To Free T4 Urgent
12/09/23 10:54
ABG [Arterial Blood Gas] Urgent
%Oxygen/Room Air: 90
12/09/23 11:19
0.9% Sodium Chloride 1000 ml [Nss] 1,000 ml IV BOLUS
12/09/23 11:58
Urinalysis Reflex To Culture Urgent
Date Specimen was Collected: 12/09/23
Time Specimen was Collected: 11:57
Comment: straight cath bladder empty
Urine Microscopic Reflex Cult Urgent
Urine Culture Urgent
JOEL Source: U
Specimen Description:
Date Specimen was Collected: 12/09/23
Time Specimen was Collected: 11:57
12/09/23 12:42
Blood Culture Urgent
JOEL Source: Blood/Venous
Specimen Description:
Date Specimen was Collected: 12/09/23
Time Specimen was Collected: 12:41
12/09/23 13:03
Blood Culture Urgent
JOEL Source: Blood/Venous
Specimen Description:
12/09/23 13:25
Cefepime HCl [Maxipime] 1,000 mg IV NOW STA
Vancomycin 1 Gram/200 ml [Vancocin] 1 gram in 200 ml IV NOW
12/09/23 13:43
Sterile Water [Sterile Water For Injection] 10 ml .ROUTE .[facility]
12/09/23 14:11
Admit/Transfer Patient As Directed
Co-Sign Provider:
Level of Care: Inpatient admission
Assign to:: Telemetry
Physician / Group: htay
Diagnosis: Presumed UTI Associated Acute kidney injury, PNA ,Mixed acidosis
Reason for Telemetry: Arrhythmia
Date to Stop Telemetry: 12/12/23
Time to Stop Telemetry: 11:00
Reason for Hospitalization: Presumed UTI plus likley PNA
Associated Acute kidney injury -likely due to decreased oral intake with volume
depletion.
Mixed acidosis with marginal Hyperkalemia
Uncompensated metabolic acidosis
Associated profound Hypocarbia
HX CLL
Expected length of stay greater than two midnights?: Yes
ELOS- Estimated Length of Stay in days: 5
I certify the patient meets the requirements for IP care: Yes
12/09/23 14:16
Code Status As Directed
Resuscitation Status: Do not resuscitate
Based on pt advanced directive or healthcare POA form: Yes
12/09/23 14:18
DNR Bracelet Application ONCE
12/09/23 15:19
FentaNYL 25 MCG/HR PATCH [Duragesic 25 Mcg/Hr Patch] 1 patch TRANSDERM Q72H
Lactated Ringers [Lr] 1,000 ml IV 80 mls/hr
REMOVE fentaNYL PATCH [Remove Duragesic Patch] See Dose Instructions REMOVE Q72H
Sterile Water For Inj [Sterile Water For Injection 1000 ml] 1,000 ml Sodium Chloride 38.5 meq Sodium Bicarbonate 100 meq IV 40 mls/hr
12/09/23 15:19
Activity As Directed
Activity Level: With Assistance
Fentanyl Patch Confirmation BID@0700,1900
Intake/ Output As Directed
Frequency: Per unit guidelines
Vital Signs As Directed
Frequency: Per unit guidelines
Speech Screening from Ap Routine
12/09/23 15:50
Lactic Acid Q4H
Comment: repeat q4 hours x 4 or until less than 2 mmol/L
12/09/23 16:00
Cefepime HCl [Maxipime] 1,000 mg IV Q8H
VANCOMYCIN Pharmacy to Dose [VANCOCIN Pharmacy to Dose] 1 each Pharmacy To Prepare [Call Pharmacy To Prepare] 0 ml IV PER PROTOCOL
12/09/23 18:00
Atorvastatin [Lipitor] 40 mg PO QPM
ropinirole 4 mg PO QPM
12/09/23 18:30
Apixaban [Eliquis] 2.5 mg PO BID@0830,1830
12/09/23 19:19
Lactic Acid Q4H
Comment: repeat q4 hours x 4 or until less than 2 mmol/L
12/09/23 20:00
Nystatin Suspension [Mycostatin Oral Suspension] DOSE units PO BID
12/09/23 23:19
Lactic Acid Q4H
Comment: repeat q4 hours x 4 or until less than 2 mmol/L
12/10/23 03:19
Lactic Acid Q4H
Comment: repeat q4 hours x 4 or until less than 2 mmol/L
12/10/23 06:00
Complete Blood Count/No Diff IN AM
Comprehensive Metabolic Panel IN AM
12/10/23 06:30
Levothyroxine [Synthroid] 50 mcg PO DAILY@0630
12/10/23 08:00
Diltiazem Extended Release [Cardizem Cd] 240 mg PO DAILY
Docusate W/Senna [Senokot-S] 2 tablet PO DAILY
Lidocaine Mpf 1% [Xylocaine-Mpf 1% Vial] DOSE ml S DAILY
Metoprolol Xl [Toprol Xl] 75 mg PO DAILY
Pantoprazole [Protonix IV] 40 mg IV DAILY
Pantoprazole [Protonix] 40 mg PO DAILY
12/12/23 11:00
DC Protocol for Telemetry ONCE
Abnormal Lab Results
12/09/23 12/09/23 12/09/23
10:12 10:27 10:54
WBC 106.5 H* 10^3/uL
(4.8-10.8)
RBC 3.34 L 10^6/uL
(4.20-5.40)
Hgb 10.6 L g/dL
(12.0-16.0)
Hct 34.1 L %
(37.0-47.0)
MCV 102.1 H fL
(81.0-99.0)
MCH 31.7 H pg
(27.0-31.0)
MCHC 31.1 L g/dL
(33.0-37.0)
RDW 17.5 H %
(11.5-14.5)
Abs Immat Gran (auto) 0.6 H 10^3/uL
(0-0.05)
Absolute Neuts (auto) 7.2 H 10^3/uL
(1.4-6.5)
Absolute Lymphs (auto) 98.3 H 10^3/uL
(1.2-3.4)
Immature Gran % 0.6 H %
(0-0.5)
Neutrophils % 6.7 L %
(42.2-75.2)
Lymphocytes % 92.3 H %
(20.5-51.1)
Monocytes % 0.3 L %
(1.7-9.3)
pH 7.26 L
(7.35-7.45)
pCO2 14 L* mmHg
(32-35)
pO2 140 H mmHg
(83-108)
HCO3 6.3 L* mmol/L
(21-28)
ABG O2 Sat (Measured) 99.4 H %
(94-98)
Carbon Dioxide < 5 L* mmol/L
(22-30)
BUN 93 H mg/dl
(7-17)
Creatinine 3.9 H mg/dL
(0.6-1.0)
Glucose 178 H mg/dl
(70-99)
Calcium 7.3 L mg/dl
(8.4-10.2)
AST 37 H U/L
(14-36)
Total Protein 5.3 L g/dl
(6.3-8.2)
Albumin 2.9 L g/dl
(3.5-5.0)
TSH (Reflex) 5.55 H uIU/ml
(0.47-4.68)
Urine Ketones
Ur Occult Blood Reflex
Urine Bilirubin
Leukocyte Esterase Rfl
Urine RBC
Urine WBC (Reflex)
Urine Bacteria (Reflex)
Urine Albumin (Reflex)
POC Glucose 115 H mg/dl
(70-99)
12/09/23
11:58
WBC
RBC
Hgb
Hct
MCV
MCH
MCHC
RDW
Abs Immat Gran (auto)
Absolute Neuts (auto)
Absolute Lymphs (auto)
Immature Gran %
Neutrophils %
Lymphocytes %
Monocytes %
pH
pCO2
pO2
HCO3
ABG O2 Sat (Measured)
Carbon Dioxide
BUN
Creatinine
Glucose
Calcium
AST
Total Protein
Albumin
TSH (Reflex)
Urine Ketones 1+ A
(Negative)
Ur Occult Blood Reflex 4+ A
(Negative)
Urine Bilirubin 1+ A
(Negative)
Leukocyte Esterase Rfl 2+ A
(Negative)
Urine RBC 7-10 A /HPF
(0-2)
Urine WBC (Reflex) 40-50 A /HPF
(0-5)
Urine Bacteria (Reflex) Few A
(Negative)
Urine Albumin (Reflex) 3+ A
(Neg - Trace)
POC Glucose
12/09/23 10:27
12/09/23 10:27
Vital Signs
Initial and Last Documented VS:
Initial Vital Signs
Pulse Resp
93 18
12/09/23 09:56 12/09/23 09:56
Last Documented Vital Signs
Temp Pulse Resp BP Pulse Ox
98.1 F 98 15 152/51 87
12/09/23 10:35 12/09/23 16:04 12/09/23 16:04 12/09/23 16:04 12/09/23 16:04
<Vanita Owens PA-C - Last Filed: 12/09/23 17:21>
MDM/Problems Addressed
Differential Diagnosis Includes:
Not limited to: Dehydration, electrolyte derangement, aspiration pneumonia, hypoxia, hypoglycemia, anemia, myxedema coma, CVA
MDM/Problems Addressed:
Patient is a 88 year old female with history as documented presenting with failure to thrive and change in mental status. Last known baseline around 9AM although worsening PO intake over the past few days. No focal neurologic deficits noted. Patient
alert and following few commands although unable to contribute to history given clinical condition. BP soft with mild hypoxia w/ O2 in low 90s on 5L NC. Physical exam as above. Differential broad although givne hypoxia - concern for aspiration
pneumonia vs electrolyte abnormality vs UTI, etc. Will check labs, CT head, CXR, UA. Given patient DNR will discuss goals of care with patient. Will give IV fluids.
Chronic conditions affecting care:
CLL, hypertension hyperlipidemia, type 2 diabetes, hypothyroid, history of DVT on Eliquis
Acute Exacerbation and/or Progression of Chronic Illness:
N/A
<Vanita Owens PA-C - Last Filed: 12/09/23 17:21>
*Radiology
Radiology exam reviewed: preliminary read by ED provider and radiology read reviewed
*Pulse Oximetry
Patient hypoxic: yes
*EKG
Interpreted by ED Provider?: Yes
EKG Intrepretation Date: 12/09/23
Interpretation: abnormal
Comparison EKG: no comparison EKG present
Heart Rate: 92
Rate: normal
Rhythm: sinus
Condon: indeterminate
Ischemia: non-specific ST changes
*Lead Systems Engineer Interpretation
Rate: normal
Interpretation: normal
Heart Rate: 92
Rhythm: sinus
*Critical Care Note
Total Time (30-74mins, 75-104mins- exclusive of procedures): Not Applicable
<Vanita Owens PA-C - Last Filed: 12/09/23 17:21>
Patient Management
Discussion with other providers: Hospitalist
Escalation/DeEscalation of care consider admission/obs:
Admit for IV antibiotics, trending of cultures. Plan for possible case management//patient.
<Vanita Owens PA-C - Last Filed: 12/09/23 17:21>
Update Note
Update Note:
Update: Prior to labs results�did have lengthy discussion with patient's sons. They are open to possible hospice discussion if workup negative for any treatable cause. Will await laboratory/imaging results and plan dispo
Update: Labs reviewed. Patient with significant leukocytosis of 106.5�this is increased from prior although patient does have history of CLL suspect likely progression of disease but cannot exclude underlying infection. Anemia stable with
hemoglobin of 10.6. ABG shows mixed acidosis. Chemistry panel notable for MIKKI. Head CT without any acute abnormalities. Chest x-ray does show findings distant with likely atelectasis although pneumonia cannot be excluded. Given patient is
hypoxic with worsening leukocytosis�underlying pneumonia is a possibility. Urine appears infected. Given urine infection and possibility of underlying pneumonia�will plan to draw blood cultures and treat empirically with vancomycin/cefepime.
Dosages discussed with pharmacist given patient's significant decline in kidney function. Suspect presenting symptoms likely multifactorial and secondary to acute infectious process including pneumonia/UTI, significant acidosis, and worsening
chronic condition including CLL. Will plan to admit to hospitalist for UTI/possible pneumonia and significant leukocytosis. Plan to trend urine/blood cultures and consider case management/hospice consultation. Patient's sons agree with plan.
Patient admitted to hospitalist in stable condition.
ED Attending Note
<Vanita Owens PA-C - Last Filed: 12/09/23 17:21>
-
Portions of this chart may have been created with voice recognition software.� Occasional wrong word or��sound alike� substitutions may have occurred due to the inherent limitations of voice recognition software.
<Edgardo Rahman MD - Last Filed: 12/09/23 10:24>
ED Attending Note
Patient seen and examined by attending physician: Yes
I performed the substantive portion of visit, reviewed & personally made and approve the management plan that is documented in note by myself or VINCE.: Yes
ED Attending Note:
88-year-old woman with history of CLL, diabetes, hypothyroidism, hypertension, hyperlipidemia, prior DVT on Eliquis presenting to the emergency department change in mental status. Patient's last known normal was 9 AM. He her nursing no clear focal
deficits the patient was less responsive this morning and and taking less p.o. She is a DNR. Patient otherwise unable to provide any additional history. Vitals are notable for a blood pressure in the low 100 stools in the low 90s. She is on
nasal cannula.
GENERAL: Cachectic, frail-appearing
HEENT: normocephalic, extraocular movements intact, dry oral mucosa with some emesis around mouth
NECK: normal inspection
RESPIRATORY: no respiratory distress, clear to auscultation bilaterally
CARDIOVASCULAR: regular rate and rhythm
ABDOMEN/: soft, non-distended, non-tender to palpation, no rebound or guarding
EXTREMITIES: non-tender, bilateral pitting edema
NEUROLOGIC: awake, follows some commands, moves all extremities, sensation intact in all extremities, pupils equal reactive, no facial droop
SKIN: warm
88-year-old woman presenting to the emergency department with change in mental status. Patient's last known normal was 9 AM. She is hypoxic. Concern for aspiration versus pneumonia versus electrolyte derangement given the dehydration. Could be
myxedema. Will check blood work EKG chest x-ray CT scan of the head urine sample. Patient will need admission. Will discuss with family for goals of care.
Discharge Plan
Departure
Patient Disposition: Admit
Date of Disposition: 12/09/23
Time of Disposition: 13:31
Presentation/result/management discussed w/ accepting MD/DO: Hospitalist
Discharge Problem:
Acute UTI, Leukocytosis, Altered mental status, Hypoxia
Interventions
Interventions:
*Risk Screen - Suicide Last Done: 12/09/23 13:24
*General Assessment Last Done: 12/09/23 13:24
*Neglect/Abuse Screening Last Done: 12/09/23 13:24
ED- Fall Risk Assessment Last Done: 12/09/23 14:49
*ED COVID-19 Vaccine History Last Done: 12/09/23 14:50
*Nursing Disposition Last Done: 12/09/23 15:16
ED- Cardiac Assessment Last Done: 12/09/23 10:55
ED- Neurological Assessment Last Done: 12/09/23 10:58
ED-Psychological Assessment Last Done: 12/09/23 13:24
ED- Pulmonary Assessment Last Done: 12/09/23 13:24
Discharge Date and Time
Discharge Date/Time: 12/09/23 15:17
[2023-12-09 10:43] LABS: Hematocrit 34.1 % (37.0-47.0); Hemoglobin 10.6 g/dL (12.0-16.0); Mean Corp Hgb Conc. 31.1 g/dL (33.0-37.0); Mean Corpuscular Hgb 31.7 pg (27.0-31.0); Mean Corpuscular Volume 102.1 fL (81.0-99.0); Platelet Count 376 10^3/uL (130-400); Red Blood Cell Count 3.34 10^6/uL (4.20-5.40); Red Cell Dist. Width 17.5 % (11.5-14.5); White Blood Cell Count 106.5 10^3/uL (4.8-10.8)
[2023-12-09 10:55] LABS: % Basophils 0.1 % (0-2); % Immature Granulocytes 0.6 % (0-0.5); % Lymphocytes 92.3 % (20.5-51.1); % Monocytes 0.3 % (1.7-9.3); % Neutrophils 6.7 % (42.2-75.2); Absolute Basophils 0.1 10^3/uL (0-0.2); Absolute Immature Granulocytes 0.6 10^3/uL (0-0.05); Absolute Lymphocytes 98.3 10^3/uL (1.2-3.4); Absolute Monocytes 0.3 10^3/uL (0.1-0.6); Absolute Neutrophils 7.2 10^3/uL (1.4-6.5); Nucleated Red Blood Cells % 0.2 %
[2023-12-09 11:07] LABS: B.E. -18.5 mmol/L; O2 Saturation % 99.4 % (94-98); PO2 140 mmHg (83-108); pH 7.26 (7.35-7.45)
[2023-12-09 11:08] LABS: ALT (SGPT) 15 U/L (0-35); AST (SGOT) 37 U/L (14-36); Albumin 2.9 g/dl (3.5-5.0); Alkaline Phosphatase 95 U/L (38-126); Blood Urea Nitrogen 93 mg/dl (7-17); Calcium 7.3 mg/dl (8.4-10.2); Carbon Dioxide < 5 mmol/L (22-30); Chloride 106 mmol/L (98-107); Estimated Creatinine Clearance 8 ml/min; Glucose 178 mg/dl (70-99); Sodium 141 mmol/L (135-145); Total Bilirubin 0.6 mg/dl (0.2-1.3); Total Protein 5.3 g/dl (6.3-8.2); eGFR 10.58
[2023-12-09 11:11] LABS: HCO3 6.3 mmol/L (21-28); PCO2 14 mmHg (32-35)
[2023-12-09] MEDS: NSS 1000 IV (11:21)
[2023-12-09 11:26] LABS: TSH Reflex To Free T4 5.55 uIU/ml (0.47-4.68)
[2023-12-09 11:57] LABS: Free T4 1.16 ng/dl (0.78-2.19)
[2023-12-09 12:18] LABS: Urine Albumin 3+ (Neg - Trace); Urine Bilirubin 1+ (Negative); Urine Character Slightly Cloudy (Clear); Urine Color Yellow; Urine Glucose Negative (Negative); Urine Ketone 1+ (Negative); Urine Leukocyte 2+ (Negative); Urine Nitrite Negative (Negative); Urine Occult Blood 4+ (Negative); Urine Specific Gravity 1.015 (<1.030); Urine Urobilinogen Negative (Neg - 1+)
[2023-12-09 12:33] LABS: Urine Bacteria Few (Negative); Urine Squamous Cell 0-2 /LPF (Few); Urine White Cell 40-50 /HPF (0-5)
[2023-12-09] MEDS: MAXIPIME 1000 MG IV ×2 (13:44→23:22)
[2023-12-09] MEDS: VANCOCIN 200 IV (13:44)
--- NOTE | 2023-12-09 13:45 | HPS.HSE ---
Addendum entered and electronically signed by Huber Lebron MD 12/09/23 21:28:
Nephrology consulted
Original Note:
Family Physician
-
Family Physician: Lico Andrews DO
Chief Complaint
-
AMS
History of Present Illness
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
- Patient unable to contribute due to AMS
- Based on documentation by nursing facility � last known normal was around 9 AM after which patient seem to be less responsive than her baseline.
- No reported focal deficits patient reportedly with decreasing p.o. intake over the past few days, not taking meds.
Medical History
Past Medical History
Past Medical History: Reports Other (CLL not on treatment, GERD, atrial fibrillation unspecified type hypertension, hypercholesteremia, diabetes, hypothyroidism, restless legs, prior DVT, hearing loss, lower extreme edema)
Past Surgical History: Reports None
Social History
Tobacco: Non-smoker
Alcohol: None
Drug: None
Family History
Family History: Not pertinent
Allergies / Home Medications
Allergies reflects when Allergies were last updated in [facility].
Home Medications with original date entered in [facility]
Allergy/Medication List:
Allergies
Allergy/AdvReac Type Severity Reaction Status Date / Time
No Known Allergies Allergy Unverified 08/12/23 14:50
Home Medications
acetaminophen 325 mg tablet 650 mg PO Q4H PRN mild pain/fever>100.4 08/12/23
alendronate 70 mg tablet 70 mg PO WE 08/12/23
apixaban 2.5 mg tablet (Eliquis) 2.5 mg PO BID@0830,1830 08/12/23
atorvastatin 40 mg tablet 40 mg PO QPM 08/12/23
bisacodyl 10 mg rectal suppository (Dulcolax (bisacodyl)) 10 mg MO DAILY PRN if mom is ineffective 08/12/23
calcium carbonate 500 mg PO Q8H PRN indigestion 08/12/23
citalopram 10 mg tablet 10 mg PO DAILY 08/12/23
diltiazem HCl 240 mg capsule,24 hr,extended release 240 mg PO DAILY 08/12/23
fentanyl 25 mcg/hr transdermal patch 1 patch transdermal Q72H 08/12/23
ferrous sulfate 325 mg (65 mg iron) tablet 325 mg PO DAILY 08/12/23
furosemide 20 mg tablet 40 mg PO DAILY 08/12/23
levothyroxine 50 mcg tablet 50 mcg PO DAILY@0630 08/12/23
magnesium hydroxide 400 mg/5 mL oral suspension (Milk of Magnesia) 30 ml PO HS PRN constipation 08/12/23
metformin 500 mg tablet 500 mg PO BID@0830,1830 08/12/23
metoprolol succinate 25 mg tablet,extended release 24 hr 75 mg PO DAILY 08/12/23
naloxone 4 mg/actuation nasal spray (Narcan) 4 mg intranasal PRN PRN opioid overdose 08/12/23
oxycodone 10 mg tablet 10 mg PO BID@0830,1830 08/12/23
pantoprazole 40 mg tablet,delayed release 40 mg PO DAILY 08/12/23
ropinirole 4 mg tablet 4 mg PO QPM 08/12/23
sennosides 8.6 mg-docusate sodium 50 mg tablet (Senna-S) 2 tab-cap PO DAILY 08/12/23
Review of Systems
-
Unable to obtain full review of systems at this time due to: Acuity
Constitutional: Reports See HPI and Other (lethargic )
EENT: Reports No Symptoms
Respiratory: Reports No Symptoms
Cardiac: Reports No Symptoms
Abdomen/GI: Reports No Symptoms
: Reports No Symptoms
Musculoskeletal: Reports No Symptoms
Skin: Reports No Symptoms
Neurological: Reports No Symptoms
Endocrine: Reports No Symptoms
Hematologic/Lymphatic: Reports No Symptoms
Psych: Reports No Symptoms
Physical Exam
Vital Signs
Vital Signs
Temp Pulse Resp BP Pulse Ox
98.1 F 92 24 118/38 91
12/09/23 10:35 12/09/23 12:30 12/09/23 12:15 12/09/23 12:00 12/09/23 10:01
Physical Exam
HEENT: NormoCephalic, Moist mucous membranes and Atraumatic
Respiratory: Clear
Cardiac: S1/S2 and Regular Rhythm; No Murmur or Rub
GI: Soft, Non Tender, Non Distended and Normal Bowel Sounds; No Organomegaly
Rectal: Deferred by Provider
Musculoskeletal: No Clubbing, No Cyanosis and No Edema
Skin: No Rash
Laboratory Results
-
12/09/23 10:27
12/09/23 10:27
Laboratory Results
pH 7.26 (7.35-7.45) L 12/09/23 10:54
pCO2 14 mmHg (32-35) L* 12/09/23 10:54
pO2 140 mmHg (83-108) H 12/09/23 10:54
HCO3 6.3 mmol/L (21-28) L* 12/09/23 10:54
Total Bilirubin 0.6 mg/dl (0.2-1.3) 12/09/23 10:27
AST 37 U/L (14-36) H 12/09/23 10:27
ALT 15 U/L (0-35) 12/09/23 10:27
Alkaline Phosphatase 95 U/L (38-126) 12/09/23 10:27
Data Reviewed
-
Lab Data: Labs Reviewed by me
Old Records: Reviewed
Impression/Plan
-
Vital Signs
Temp Pulse Resp BP Pulse Ox
98.1 F 92 24 118/38 91
12/09/23 10:35 12/09/23 12:30 12/09/23 12:15 12/09/23 12:00 12/09/23 10:01
Laboratory Tests
10/14/23 10/14/23 12/09/23
16:29 17:24 10:12
WBC 37.8 H
Hgb 9.8 L
MCV
pH
pCO2
pO2
HCO3
Potassium
Carbon Dioxide
Creatinine 1.4 H
eGFR
Glucose
Calcium
Albumin
TSH (Reflex)
Free T4
Urine Nitrite (Reflex)
Leukocyte Esterase Rfl
Urine RBC
Urine WBC (Reflex)
POC Glucose 115 H
12/09/23 12/09/23 12/09/23
10:27 10:54 11:58
WBC 106.5 H*
Hgb 10.6 L
MCV 102.1 H
pH 7.26 L
pCO2 14 L*
pO2 140 H
HCO3 6.3 L*
Potassium 5.0
Carbon Dioxide < 5 L*
Creatinine 3.9 H
eGFR 10.58
Glucose 178 H
Calcium 7.3 L
Albumin 2.9 L
TSH (Reflex) 5.55 H
Free T4 1.16
Urine Nitrite (Reflex) Negative
Leukocyte Esterase Rfl 2+ A
Urine RBC 7-10 A
Urine WBC (Reflex) 40-50 A
POC Glucose
CXR:
Mild blunting of the left lateral costophrenic angle suggesting a small left pleural effusion, possibly with lateral loculation.
Subtle small focus of parenchymal opacity within the left lower lung, predominantly linear morphology, likely atelectasis.
A small focus of pneumonia is less likely but still possible.
Last hospitalist admission:
Date of Admission: 08/15/23
Date of Discharge: 08/20/23
Discharge Diagnosis/Procedures:
Abdomen Pain likely secondary stercoral colitis/fecal impaction
Acute kidney injury
Asymptomatic pyuria
ASSESSMENT & PLAN
AMS due to multifactorial hypoactive TME such as presumed UTI, Hypoxia, mixed acidosis and MIKKI.
Likely PNA @ left lower lung
- Rx as below
- Aspiration precaution
- Speech to screen for nutrition
Presumed UTI
Associated Acute kidney injury -likely due to decreased oral intake with volume depletion.
HX Urine culture shows greater than 100,000 Klebsiella species.
HX Asymptomatic pyuria
HX Chronic urinary incontinence
- f/u BCx
- Held Furosemide
- IV NS
- Empiric IV vanco and CFP
Mixed acidosis with marginal Hyperkalemia
Uncompensated metabolic acidosis
Associated profound Hypocarbia
- IV HCO3 gtt
- follow BMP
HX CLL -not on treatment.
Leukocytosis is likely related to acut infection plus underlying CLL
- trend WCC
Known HX Right renal lesion-known per patient son.
Prior CT abdomen pelvis with IV/po contrast-No aggressive renal mass noted.
- Prior suggestion of recommendation to see outpatient urology/oncology to son.
Chronic pain syndrome/chronic opiate dependence
HX RLS
Opiate induced constipation
-continue bowel regimen.
Essential hypertension
-stable.
HX Atrial fibrillation -unknown type.
- Eliquis and cardizem continued with hold index for
Hyperlipidemia -atorvastatin.
Osteoporosis
DM2 without hyperglycemia
- held metformin ue to MIKKI
- add ISS low
Hypothyroidism
-levothyroxine
Anxiety/depression
Chronic hearing loss
R buttocks pressure injury stage II-POA
wound care
Moderate protein caloric malnutrition acute illness
Prognosis : guarded acknowledged by 2 sons at bed side. DNR. Await next 24- 48rs, currently to cont current plan. If clinically deteriorate sons will strongly consider hospice care.
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
Code: DNR per adv directives confirmed by 2 sons at bed side
IP TLM
--- NOTE | 2023-12-09 14:44 | W.PN.UPDATE ---
Addendum entered and electronically signed by Huber Lebron MD 12/09/23 21:15:
ADDENDUM: Note was wrong entry
<del>This</del> <del>note</del> <del>serves</del> <del>as</del> <del>an</del> <del>addendum</del> <del>to</del> <del>the</del> <del>H&P</del> <del>by</del> <del>weapons engineer</del> <del>VINCE</del> <del>Enriqueta</del> <del>SALINA</del>
<del>In</del> <del>summary</del> <del>:</del>
<del>81M</del> <del>HX</del> <del>AF</del> <del>recently</del> <del>Dxed</del> <del>already</del> <del>on</del> <del>Eliquis</del> <del>ARCHITECTURE PROFESSOR</del> <del>seen</del> <del>at</del> <del>ER</del> <del>for</del> <del>evaluating</del> <del>of</del>
<del>dropping</del> <del>hemoglobin.</del>
<del>PCP,</del> <del>who</del> <del>d/w</del> <del>Dr.</del> <del>Duncan</del> <del>and</del> <del>suggest</del> <del>to</del> <del>come</del> <del>to</del> <del>the</del> <del>ER</del> <del>today.</del>
<del>Reports</del> <del>intermittently</del> <del>been</del> <del>having</del> <del>blood</del> <del>per</del> <del>rectum</del> <del>for</del> <del>the</del> <del>past</del> <del>few</del> <del>weeks,</del> <del>had</del> <del>a</del>
<del>colonoscopy</del> <del>and</del> <del>EGD</del> <del>at</del> <del>[facility]</del> <del>on</del> <del>8/30,</del> <del>which</del> <del>showed</del> <del>internal</del> <del>hemorrhoids,</del> <del>a</del> <del>polyp,</del> <del>and</del>
<del>diverticulosis.</del>
<del>-</del> <del>last</del> <del>episode</del> <del>of</del> <del>large</del> <del>amount</del> <del>of</del> <del>blood</del> <del>per</del> <del>rectum</del> <del>was</del> <del>last</del> <del>[place].</del>
<del>-</del> <del>Hgb</del> <del>when</del> <del>he</del> <del>left</del> <del>hospital</del> <del>on</del> <del>8/4</del> <del>was</del> <del>17.7</del> <del>(probably</del> <del>hemoconcentrated),</del> <del>and</del> <del>14.2</del> <del>on</del>
<del>831.</del>
<del>-</del> <del>Now</del> <del>it's</del> <del>9.8.</del>
<del>Hemodynamically</del> <del>stable</del>
<del>NEG</del> <del>HoB</del> <del>stool</del>
<del>GI</del> <del>consulted</del> <del>at</del> <del>ER</del> <del>and</del> <del>plan</del> <del>to</del> <del>scope</del> <del>C</del> <del>scope</del> <del>him</del> <del>tomorrow.</del>
<del>-</del> <del>Starting</del> <del>prep</del> <del>today</del>
<del>-</del> <del>Clear</del> <del>for</del> <del>now</del> <del>then</del> <del>NPO</del> <del>after</del> <del>NM</del> <del>and</del> <del>IVF</del>
<del>-</del> <del>Hold</del> <del>Eliquis</del> <del>-</del> <del>last</del> <del>dose</del> <del>of</del> <del>Eliquis</del> <del>today</del> <del>at</del> <del>8</del> <del>am.</del>
<del>-</del> <del>IV</del> <del>PPI</del>
<del>DVT</del> <del>Px;</del> <del>SCD</del>
<del>Full</del> <del>code</del>
<del>IP</del> <del>TLM</del>
�
Original Note:
Update Note
Progress Note Update
This note serves as an addendum to the H&P by weapons engineer VINCE Enriqueta DOWNING
In summary :
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
PCP, who d/w Dr. Duncan and suggest to come to the ER today.
Reports intermittently been having blood per rectum for the past few weeks, had a colonoscopy and EGD at on 11/25, which showed internal hemorrhoids, a polyp, and diverticulosis.
- last episode of large amount of blood per rectum was last Wednesday.
- Hgb when he left hospital on 10/30 was 17.7 (probably hemoconcentrated), and 14.2 on 11/26.
- Now it's 9.8.
Hemodynamically stable
NEG HoB stool
GI consulted at ER and plan to scope C scope him tomorrow.
- Starting prep today
- Clear for now then NPO after NM and IVF
- Hold Eliquis - last dose of Eliquis today at 8 am.
- IV PPI
DVT Px; SCD
Full code
IP TLM
[2023-12-09 16:12] LABS: Lactic Acid 3.2 mmol/L (0.7-2.0)
[2023-12-09 17:54] LABS: Glucose - Point of Care 115 mg/dl (70-99)
--- NOTE | 2023-12-09 17:57 | PHA.VAN.IN ---
Assessment
- Assessment
Renal Function: Appears elevated from baseline (0.9)
Minimum Temperature: 96.7 F rectal 12/08 @ 1710
Concomitant Antimicrobials: cefepime
Plan
- Plan
Initial / Loading Dose: vanc 1000mg administered @ 1344
Maintenance Regimen: dosing by level
Monitoring: random level 12/09 0600
Pharmacokinetics Vancomycin I
- -
Patient Age: 88
Patient Sex: Female
Vancomycin Day #: 1
Indication: Genito-Urinary Tract
Requesting Provider: Dr. Lebron
Pertinent Antimicrobial Allergies:
no pertinent antimicrobial allergies
Height / Weight:
Height 5 ft 4 in
Actual Weight 47.763 kg
IBW in k.7
Pertinent Past Medical History: BMI ~18, hx CLL not currently on treatment
- Vital Signs / Lab Results
Temp Pulse Resp BP Pulse Ox
96.7 F L 98 15 152/51 87
12/09/23 17:10 12/09/23 16:04 12/09/23 16:04 12/09/23 16:04 12/09/23 16:04
Lab Results - Hematology
12/09/23
10:27
WBC 106.5 H*
Lab Results - Chemistry
12/09/23
10:27
BUN 93 H
Creatinine 3.9 H
Estimated Creat Clear 8
Albumin 2.9 L
12/09/23
15:50
Lactic Acid 3.2 H
Lab Results - Urine
12/09/23
11:58
Urine Nitrite (Reflex) Negative
Leukocyte Esterase Rfl 2+ A
Urine WBC (Reflex) 40-50 A
Ur Squamous Epith Cells 0-2
Urine Bacteria (Reflex) Few A
[2023-12-09] MEDS: SODIUM CHLORIDE 1109.625 MEQ IV ×2 (18:00)
[2023-12-09] MEDS: PROTONIX IV 40 MG IV (18:05)
[2023-12-09] MEDS: DURAGESIC 25 MCG/HR PATCH 1 PATCH TRANSDERM (18:05)
--- NOTE | 2023-12-09 18:48 | PTCARENOTE ---
pt arrived from ED pale and cool, cyanotic lips. BP stable. Tele monitor applied. Pt in NSR, HR 90-100. Pt on 5L NC. Unable to obtain SaO2 d/t cold extremities. Unable to obtain oral temp. Rectal temp 96.7, Aspen hugger initiated on high setting.
Rectal temp checked x1hr later, rectal temp 97.5, pt skin pale and warm. Aspen hugger turned down to low setting. WBC 106. Lactic acid 3.2, repeat lactic due at 19:20. PCO2 14, HCO3 6.3. Sodium Chloride&Sodium Bicarb started @ 40 ml/hr.
[2023-12-09 21:37] LABS: Lactic Acid 3.8 mmol/L (0.7-2.0)
[2023-12-09] MEDS: LR 500 IV (23:16)
[2023-12-09] MEDS: STERILE WATER FOR INJECTION 10 ML IV (23:21)
--- NOTE | 2023-12-09 23:23 | W.PN.UPDATE ---
Addendum entered and electronically signed by ROBIN Gutierrez 12/10/23 01:14:
bp not responsive to IVF will transfer to imu for levophed and assess response
Will remove fentanyl patch for now given lethargy and hypotension
Addendum entered and electronically signed by ROBIN Gutierrez 12/09/23 23:48:
After discussion with brother, decision was made that if pt bp not responsive to IVF then they are ok with attempting pressors. But if pt continues to deteriorate despite pressor then comfort will be priority. No escalation to second pressor.
Original Note:
Update Note
Progress Note Update
Notified by RN that BP now 79/42 HR 106 unable to accurately obtain pulse of due to cool extremities and cyanotic nail beds.
Pt lethargic, but will look at me and tries to speak but unable to understand words.
Pt does not appear in distress.
Lactic worsening last was 3.8
Will give LR bolus to attempt to augment BP
Recheck lactic and cmp and vbg to assess o2
Discussed with son Jaylen regarding update on mothers status. We discussed pt being a DNI/ DNR which he confirmed. Discussed that in the event BP not responsive to IVF whether or not he would want mother started on pressors or continuing with current
treatment plan with no escalations and if she should continue to deteriorate transition to comfort care.
Jaylen will call me back once he discusses with his brother.
[2023-12-09 23:48] LABS: Glucose - Point of Care 99 mg/dl (70-99)
[2023-12-10] VITALS (64 sets, daily range): BP systolic 48–139; BP diastolic 30–71; PULSE 96; BMI 19.3
--- NOTE | 2023-12-10 00:24 | PTCARENOTE ---
Pt transferred from 3w to room 2136, nonverbal, pale, cyanotic fingers, cold lower extremities, BP 85/59, 110, RR 28, T97.4 , Pox 77% @ 6 L via NC. Manual BP 76/42, 106. sodium bicarb infusing @ 40/hr. O2 increased to 10L/hr via midflow, pox 90-92%,
stationary engineer apprentice COLLEGE SCOUTING COORDINATOR made aware of BP, 500cc LR bolus given, labs ordered. Family updated by COLLEGE SCOUTING COORDINATOR.
--- NOTE | 2023-12-10 01:25 | PTCARENOTE ---
Pt transferred to ICU. Report given to receiving RN.
[2023-12-10] MEDS: LEVOPHED 250 IV ×3 (01:48→09:00)
[2023-12-10 03:02] LABS: Venous Blood Gas B.E. -17.6 mmol/L (-4 to +4); Venous Blood Gas HCO3 9.8 mmol/L (22-27); Venous Blood Gas O2 Sat % 83.9 %; Venous Blood Gas pCO2 28 mmHg (35-48); Venous Blood Gas pO2 52 mmHg (30-50)
[2023-12-10 03:05] LABS: Venous Blood Gas pH 7.15 (7.32-7.43)
[2023-12-10 03:26] LABS: Hematocrit 27.8 % (37.0-47.0); Hemoglobin 8.6 g/dL (12.0-16.0); Mean Corp Hgb Conc. 30.9 g/dL (33.0-37.0); Mean Corpuscular Hgb 30.6 pg (27.0-31.0); Mean Corpuscular Volume 98.9 fL (81.0-99.0); Platelet Count 271 10^3/uL (130-400); Red Blood Cell Count 2.81 10^6/uL (4.20-5.40); Red Cell Dist. Width 16.9 % (11.5-14.5); White Blood Cell Count 78.9 10^3/uL (4.8-10.8)
[2023-12-10 03:38] LABS: ALT (SGPT) 18 U/L (0-35); AST (SGOT) 69 U/L (14-36); Albumin 2.1 g/dl (3.5-5.0); Alkaline Phosphatase 71 U/L (38-126); Blood Urea Nitrogen 94 mg/dl (7-17); Calcium 6.4 mg/dl (8.4-10.2); Carbon Dioxide 8 mmol/L (22-30); Chloride 109 mmol/L (98-107); Estimated Creatinine Clearance 8 ml/min; Glucose 128 mg/dl (70-99); Magnesium 0.8 mg/dl (1.6-2.3); Potassium 3.7 mmol/L (3.5-5.1); Sodium 142 mmol/L (135-145); Total Bilirubin 0.5 mg/dl (0.2-1.3); Total Protein 4.3 g/dl (6.3-8.2); eGFR 11.27
[2023-12-10] MEDS: MAGNESIUM SULFATE 100 IV (04:11)
[2023-12-10] MEDS: CALCIUM GLUCONATE 130 MG IV (04:16)
[2023-12-10] MEDS: SODIUM BICARBONATE 1150 MEQ IV (04:27)
[2023-12-10] MEDS: SODIUM BICARBONATE 50 MEQ IV (04:27)
[2023-12-10] MEDS: KCL 270 MEQ IV (04:37)
--- NOTE | 2023-12-10 04:59 | PTCARENOTE ---
pt transfer from for LEVO gtt. on arrival pt BP was 79/50, levo was started and fluids continued, pt lethargic and unable to follow any commands, unable to track when using tactile/verbal stimuli. pt soon after upgraded to ICU due to increased
levo requirements, rectal temp 95.3, babar hugger applied per orders, COMMISSION SALES ASSOCIATE at bedside, Midline was placed by IV team LUIS COCHRAN, labs sent, pt became more alert and able to track staff at times, electrolytes being repleted, pt ST in the 140s at times but
comes back down to 110s/120s.
--- NOTE | 2023-12-10 06:30 | PTCARENOTE ---
pt noted to be in and out of ST/AFIB on the monitor, NURSE RN BSN aware of HR/rhythm changes, NURSE RN BSN called son to update and son does not want to escalate at this time and will be in vegetable inspector. no new orders at this time. HR 140s, Map 65, babar hugger on.
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
--- NOTE | 2023-12-10 08:45 | PTCARENOTE ---
Rec'd pt at 0745 resting in bed. With stimulation will open eyes but no focus or tracking. Pupils are sluggish at 3mm. Pt per report is deaf. Will occasionally move her arms but no leg movement noted. Non-verbal. Skin - trunk is warm but extremities
are cool. Pt initally with babar hugger in place but turned off at 0800 as temp rectally 97.6. Extremities are ecchymotic on her arms and legs with some mottling. Nailbeds on both hands and feet are a dusky pale with refill >2 seconds. Respirs are
shallow but non-labored. Bs are decreased throughout and sl coarse on the L. Pt currently on 100% NRB mask + 15 L midlflow- despite trying ear and mult extremities continue to beunable to get consistent sats. Monitor Remains in AFib with rates in
the 130-140's. + PT pulses via the doppler. Unable to get DP pulses with the doppler. + 3 LE edema. VS as documented. Rec'd pt on IV Levophed at 20 mcg- currently at 26 mcg as difficult to keep MAP's >65. Abd is round and soft with hypoactive BS.
Incont of a small amt of katey urine. Capped int intact R hand. IV Levophed and Bicarb gtt infusing via L arm midline-site wnl. KCL rider and Mag riders also infusing via L midline. Mag rider completed and KCL rider almost completed. Complete CHG
bath given. Mouth care given. Turned and repositioned. Will send off labs as ordered. Plan of care reviewed with pt.
[2023-12-10 09:00] LABS: Glucose - Point of Care 265 mg/dl (70-99)
--- NOTE | 2023-12-10 09:15 | PTCARENOTE ---
Around 0850 pts breathing started to become more shallow and agonal. HR which had been in the 130-140's now around 110- afib. BP's at 0845 85/43 and Levophed at 26. Labs sent as ordered and then Levophed increased to 30 mcg as unable to get a bP and
pulse rate dropping. Pts son and Dr. Hassan notified of change in condition. 09- pt with asystole on the monitor. No respirs or pulse noted. Dr. Hassan updated.
--- NOTE | 2023-12-10 09:15 | PTCARENOTE ---
Dr. Hassan in to pronounce pt and awaiting son who should be here shortly.
[2023-12-10 09:24] LABS: INR 2.37; PT 25.8 Sec (11.4-14.6)
[2023-12-10 09:25] LABS: APTT 42.8 Sec (23.4-35.0)
[2023-12-10 09:26] LABS: Lactic Acid 10.6 mmol/L (0.7-2.0)
[2023-12-10 09:29] LABS: Vancomycin Random 9.6 ug/ml
--- NOTE | 2023-12-10 09:30 | PTCARENOTE ---
Pts 2 sons in to see pt and updated. Support given. Chocolatier in to see pt and family.
[2023-12-10 09:40] LABS: Glycohemoglobin (HgbA1c) 6.2 % (4.0-5.6)
--- NOTE | 2023-12-10 10:06 | W.PN.DEATH ---
Addendum entered and electronically signed by Anthony Hassan MD 12/10/23 14:39:
Time of discharge 42 minutes
Addendum entered and electronically signed by Anthony Hassan MD 12/10/23 10:16:
[employer] [facility] contacted. Discussed with Adelina Alberts.
Original Note:
Pronouncement of
-
Called to see patient to pronounce.
No spontaneous heart tones or respirations noted.
Patient not responsive to verbal stimuli.
Patient is pronounced .
Time of : 09:04
Date of : 12/10/23
Cause of : Septic shock secondary to UTI, MIKKI ,metabolic acidosis
Family Notified: Yes
--- NOTE | 2023-12-10 10:08 | W.DCSUMMARY ---
Discharge Summary
Discharge Data
Date of Admission: 12/09/23
Date of Discharge: 12/10/23
-
Pending Results: No
Hospital Course
Discharge diagnosis:
Septic shock secondary to urinary tract infection
Acute hypoxic respiratory failure
Acute kidney injury
Lactic acidosis
History of CLL
Hospital course:
88-year-old female with past medical history of CLL, hyperlipidemia, hypertension, type 2 diabetes mellitus, hypothyroidism, chronic hearing loss, anxiety/depression history of DVT on Eliquis came to the hospital from [facility] with change in
mental status. Patient was initially admitted for sepsis secondary to urinary tract infection. Over time patient blood pressure continued to get worse and she was put on Levophed. She also had worsening metabolic acidosis with lactic acidosis.
She also developed acute kidney injury. Family at that time was okay with continuing Levophed however did not wanted any other pressors to be started if conditions get worse. Over time since her condition continued to get worse, she was then
transferred to the ICU. In the ICU her condition continued to get worse and she was maxed on Levophed. Patient was also DNR on admission. On 12/10/2023 around 9:04 AM, she was found asystole and .
Discharge Plan
-
Patient Disposition:
Date/Time
Date/Time: 12/10/23 09:04
Discharge Date and Time
Discharge Date/Time: 12/10/23 09:04
Print Language: SLOVENIAN
[2023-12-10 10:15] LABS: AST (SGOT) 88 U/L (14-36); Albumin 1.8 g/dl (3.5-5.0); Alkaline Phosphatase 70 U/L (38-126); Blood Urea Nitrogen 91 mg/dl (7-17); Calcium 7.4 mg/dl (8.4-10.2); Carbon Dioxide 9 mmol/L (22-30); Chloride 105 mmol/L (98-107); Estimated Creatinine Clearance 9 ml/min; Glucose 248 mg/dl (70-99); Potassium 4.8 mmol/L (3.5-5.1); Sodium 139 mmol/L (135-145); Total Bilirubin 0.4 mg/dl (0.2-1.3); Total Protein 3.8 g/dl (6.3-8.2); eGFR 11.65
[2023-12-10 10:29] LABS: ALT (SGPT) 31 U/L (0-35)
--- NOTE | 2023-12-10 11:35 | PTCARENOTE ---
Belongings from room sent with family.
--- NOTE | 2023-12-10 13:03 | PTCARENOTE ---
[facility] called. Post mortem care completed [facility]
== END 2023-12-10 09:04 | disposition expired | DRG 871 ==
LOC: ICU 14:27
PROVIDERS: Nurse Practitioner Family; Physician Assistant; ADMITTING PHYSICIAN Internal Medicine; ATTENDING PHYSICIAN Internal Medicine; CONSULT PHYSICIAN Internal Medicine Critical Care Medicine; EMERGENCY PHYSICIAN Student in an Organized Health Care Education/Training Program; FAMILY PHYSICIAN Student in an Organized Health Care Education/Training Program
PROC: 5A19054 Respiratory Ventilation, Single, Nonmechanical (ICD-10-PCS; 2023-12-10)
DX: A41.9 Sepsis, unspecified organism (principal); G92.8 Other toxic encephalopathy; R65.21 Severe sepsis with septic shock; J18.9 Pneumonia, unspecified organism; J96.01 Acute respiratory failure with hypoxia; C91.10 Chronic lymphocytic leukemia of B-cell type not having achieved remission; E87.4 Mixed disorder of acid-base balance; R64 Cachexia; N39.0 Urinary tract infection, site not specified; N17.9 Acute kidney failure, unspecified; F11.20 Opioid dependence, uncomplicated; K62.5 Hemorrhage of anus and rectum; E87.20 Acidosis, unspecified; E44.0 Moderate protein-calorie malnutrition; Z68.1 Body mass index [BMI] 19.9 or less, adult; E03.8 Other specified hypothyroidism; E11.9 Type 2 diabetes mellitus without complications; D64.9 Anemia, unspecified; F32.A Depression, unspecified; G25.81 Restless legs syndrome; I10 Essential (primary) hypertension; D50.9 Iron deficiency anemia, unspecified; L89.312 Pressure ulcer of right buttock, stage 2; E88.09 Other disorders of plasma-protein metabolism, not elsewhere classified; R62.7 Adult failure to thrive; R54 Age-related physical debility; E78.00 Pure hypercholesterolemia, unspecified; E83.42 Hypomagnesemia; E86.9 Volume depletion, unspecified; E87.5 Hyperkalemia; K59.03 Drug induced constipation; T40.605A Adverse effect of unspecified narcotics, initial encounter; M81.0 Age-related osteoporosis without current pathological fracture; K64.8 Other hemorrhoids; K57.30 Diverticulosis of large intestine without perforation or abscess without bleeding; Z66 Do not resuscitate; G89.4 Chronic pain syndrome; F41.9 Anxiety disorder, unspecified; H91.90 Unspecified hearing loss, unspecified ear; I48.91 Unspecified atrial fibrillation; K21.9 Gastro-esophageal reflux disease without esophagitis; R32 Unspecified urinary incontinence; R60.0 Localized edema; R74.01 Elevation of levels of liver transaminase levels; Z79.01 Long term (current) use of anticoagulants; Z79.84 Long term (current) use of oral hypoglycemic drugs; Z79.890 Hormone replacement therapy; Z79.899 Other long term (current) drug therapy; Z86.718 Personal history of other venous thrombosis and embolism; Z86.010 Personal history of colon polyps
CPT/HCPCS: 51701; 70450; 71045; 80053; 80202; 81003; 81015; 82805; 82962; 83036; 83605; 83735; 84439; 84443; 85025; 85027; 85610; 85730; 87040; 87070; 87077; 87086; 87186; 93005; 96365; 96375; 99285